=== PATIENT | female | born 1950 | race Caucasian/White ===

== ENCOUNTER → 2017-05-21 09:49 | Outpatient (CLI) | payer MEDICARE, MEDICAID, SELFPAY ==
[2017-05-21 10:33] VITALS: PULSE 52; PULSE 55
--- NOTE | 2017-05-21 10:57 | CT_ITS ---
EXAM: CT LUNG LOW DOSE WO CONTRAST COMPARISON: None HISTORY: 66 year old female with greater than 30 pack-year smoking history, asymptomatic ORDERING PHYSICIAN: Justin Rmairez MD PATIENT AGE: 66 years TECHNIQUE: The exam was performed on a GE Light Speed [address] scanner using 2.90 mGy CTDI. A low dose helical CT CHEST was performed on a multi-detector scanner. All CT scans at the facility use one or more dose reduction, viz: automated exposure control; ma/kV adjustment per patient size (including targeted exams where dose is matched to indication; i.e. head); or iterative reconstruction technique. The LDCT was performed in a facility that meets the criteria for the screening program. Data regarding this exam was submitted to ACR which is an approved registry. The order for this exam indicates that it came as a result of a lung cancer screening counseling shard decision-making visit that included all the elements required of such a visit including smoking cessation. The radiologist interpreting this exam meets the CMS criteria for the LDCT lung cancer screening program. The exam is reported using the Lung-RADS classification scale and reported to the ACR registry. NOTE: This study was performed for the specific purposes of lung cancer screening and is not an alternative to diagnostic chest CT. RADIATION DOSE: CTDI vol(CT dose Index-volume) = 2.90mG DLP (Dose Length Product) = 96.27 mGcm FINDINGS: Centrilobular and paraseptal emphysematous changes are present there is a 5 mm spiculated opacity within the central aspect of the right upper lobe. A 4 mm somewhat irregular opacity is present in each aspect of the right upper lobe. 5 mm opacity noted in the right upper lobe laterally. Calcified granulomas present in the right perihilar region. Atelectatic changes are present in the right middle lobe and right lower lobe left lung base posteriorly 4 mm irregular opacity is present in the left upper lobe anteriorly and a 4 mm irregular opacity in the left upper lobe centrally as well as a 3 mm opacity in the left upper lobe centrally There are coronary artery calcifications. Scattered small nodes are present in the axilla. There are degenerative changes in the thoracic spine. Fibrotic changes are present in the left apex IMPRESSION: 1. Lung RADS Category: 3, probably benign 2. Other findings: Emphysema with scattered areas of pulmonary fibrosis and atelectasis. Coronary artery disease RECOMMENDATIONS: 3 month LDCT follow-up. The nodules have a somewhat spiculated appearance therefore, three-month CT follow-up is recommended.
== END ==
PROVIDERS: PCP Family Medicine; Visit Provider Family Medicine
DX: Z12.2 Encounter for screening for malignant neoplasm of respiratory organs (principal); Z87.891 Personal history of nicotine dependence; J44.9 Chronic obstructive pulmonary disease, unspecified
CPT/HCPCS: 94060; 94640

== ENCOUNTER → 2017-10-13 11:56 | Outpatient (CLI) | payer MEDICARE, MEDICAID, SELFPAY ==
--- NOTE | 2017-10-13 12:10 | XR_ITS ---
EXAM: XR lumbar spine min 4V HISTORY: ITS.REASON: LT SIDED LOW BACK PAIN W/SCIATICA ORDERING PHYSICIAN: Debby Russo PATIENT AGE: 67 years COMPARISON: None FINDINGS: There is mild dextroscoliosis of lumbar spine. There is degenerative disc disease at T12-L1 and L1-L2. There is mild anterolisthesis of L4 on L5 of 3 mm. No acute fracture or dislocation. There are facet arthritic changes at L4-5 and L5-S1. No lytic or blastic change. IMPRESSION: Degenerative disc disease with mild facet arthritic change as described above
== END ==
PROVIDERS: PCP Nurse Practitioner Family; Visit Provider Nurse Practitioner Family
DX: M54.42 Lumbago with sciatica, left side (principal)
CPT/HCPCS: 72110

== ENCOUNTER → 2017-10-30 14:48 | Outpatient (CLI) | payer MEDICARE, MEDICAID, SELFPAY ==
--- NOTE | 2017-10-30 14:50 | CT_ITS ---
CT lumbar spine wo con INDICATION: Left-sided low back pain. Sciatica one month. No injury. ITS.REASON: ACUTE LT LOW BACK PAIN ORDERING PHYSICIAN: Debby Russo PATIENT AGE: 67 years COMPARISON: Previous CT abdomen and pelvis of the reconstructions from 07/26/2016 . There is also a plain film lumbar spine series from 10/13/2017 TECHNIQUE: Helical axial images obtained with sagittal and coronal reformats. All CT scans at the facility use one or more dose reduction, viz: automated exposure control, ma/kV adjustment per patient size (including targeted exams where dose is matched to indication, i.e. head), or iterative reconstruction technique. FINDINGS: Lumbar vertebral bodies are intact. No compression fracture or lesions evident on CT.. No acute findings Mild dextroscoliosis upper lumbar spine. L5/S1. Disc intact. Mild disc bulge most evident to the left. Prominent facet hypertrophy bilateral L4/5.. Mild disc space narrowing most evident rightward, and is associated with mild levoscoliosis.. Asymmetric disc bulge slightly more evident towards the left.. This indents thecal sac and yields mild encroachment upon the neural foramen bilaterally left more so than right.. Facet hypertrophy bilaterally most pronounced in the right. It bilateral facet arthropathy, hypertrophy. L3/4. Degenerative disc space narrowing most evident to the right. No Slight rightward shift of L3 vertebra relative to L4. Associated with the patient mild levoscoliosis. Diffuse generous disc bulge with additional disc bulge/protrusion towards the left foramen and continuing lateral. Mild bilateral foraminal encroachment. Moderate Facet hypertrophy. L2/3 mild disc space narrowing most evident to the left. Spondylosis with diffuse disc bulge most evident the left. Facet hypertrophy, arthropathy to the left L1/2 again there is mild disc space narrowing with mild diffuse disc bulge. Mild facet hypertrophy. T12/L1 and T11/12 disc intact. . Findings are very similar and show no significant change since June 2016 CT abdomen Bilateral punctate renal calculi. Right kidney: 4 mm nonobstructive calculus at upper pole. Small less than 3.5 mm calculus lower pole. Other tiny faint calculi. Left kidney most notable is the over 4 mm calculus lower pole left kidney. Other small calculus towards lower pole. Small less than 3 mm calculus at upper pole. IMPRESSION: 1. No acute findings in the lumbar spine. . No significant change since a June 2016 abdomen used as comparison 2. Moderate degenerative degenerative changes throughout the lumbar spine as detailed above.. . Mild levoscoliosis of L-spine with Multilevel degenerative disc & facet arthropathy . L4/5. & L3/4.-Asymmetric disc bulge most evident towards left foramen 3. Nephrolithiasis. Numerous punctate renal calculi bilaterally... No obstruction.
== END ==
PROVIDERS: PCP Nurse Practitioner Family; Visit Provider Nurse Practitioner Family
DX: M54.42 Lumbago with sciatica, left side (principal)
CPT/HCPCS: 72131

== ENCOUNTER → 2017-11-09 13:48 | Outpatient (CLI) | payer MEDICARE, MEDICAID, SELFPAY ==
[2017-11-09 15:23] LABS: Basophils # 0.1 K/mm3 (0-0.2); Basophils % 0.5 % (0.1-2.0); Eosinophils # 0.4 K/mm3 (0.0-0.4); Eosinophils % 3.4 % (0.1-12.0); Hematocrit 50.8 % (37.0-47.0); Hemoglobin 16.9 g/dL (12.2-16.2); Lymphocytes # 3.4 K/mm3 (0.7-4.5); Lymphocytes % 32.9 K/mm3 (10-50); Mean Corpuscular HGB Conc 33.2 g/dL (31.8-35.4); Mean Corpuscular Hemoglobin 31.6 pg (27.0-31.2); Mean Corpuscular Volume 95.3 fl (81-99); Mean Platelet Volume 7.3 fl (7.4-10.4); Monocytes # 0.6 K/mm3 (0.1-1.0); Monocytes % 5.8 % (1.7-9.3); Neutrophils # 5.9 K/mm3 (1.8-7.8); Neutrophils % 57.4 % (37.0-80.0); Platelet Count 309 K/mm3 (142-424); Red Blood Count 5.33 M/mm3 (4.20-5.40); Red Cell Distribution Width 13.6 % (11.5-17.5); White Blood Count 10.3 K/mm3 (4.8-10.8)
== END ==
PROVIDERS: PCP Family Medicine; Visit Provider Otolaryngology
DX: Z01.818 Encounter for other preprocedural examination (principal); J38.1 Polyp of vocal cord and larynx; R49.0 Dysphonia; F17.200 Nicotine dependence, unspecified, uncomplicated
CPT/HCPCS: 36415; 80053; 85025; 93005

== ENCOUNTER → 2017-11-10 14:15 | Outpatient (CLI) | payer MEDICARE, MEDICAID, SELFPAY ==
[2017-11-10 15:12] LABS: Alanine Aminotransferase 40 U/L (12-78); Albumin Level 3.7 gm/dL (3.4-5.0); Alkaline Phosphatase 110 U/L (46-116); Aspartate Amino Transferase 15 U/L (15-37); Bilirubin,Total 0.4 mg/dL (0.2-1.0); Blood Urea Nitrogen 21 mg/dL (7-18); Calcium 8.7 mg/dL (8.5-10.1); Carbon Dioxide 25 mmol/L (21.0-32.0); Chloride 106 mmol/L (98-107); Creatinine,Serum 1.44 mg/dL (0.55-1.02); Estimated Glomerular Filt Rate 36 ml/min (>60); GFR (African American) 44 ML/MIN (>60); Globulin 3.6 gm/dl (1.3-3.2); Glucose 83 mg/dL (74-106); Sodium 141 mmol/L (136-145); Total Protein,Serum 7.3 gm/dL (6.4-8.2)
== END ==
PROVIDERS: PCP Family Medicine; Visit Provider Otolaryngology
DX: Z01.818 Encounter for other preprocedural examination (principal); R49.0 Dysphonia
CPT/HCPCS: 36415; 80053

== ENCOUNTER → 2018-06-24 11:33 | Outpatient (CLI) | payer MEDICARE, MEDICAID, SELFPAY ==
--- NOTE | 2018-06-24 11:40 | XR_ITS ---
XR ankle RT min 3V HISTORY: ITS.REASON: RT ANKLE PAIN ORDERING PHYSICIAN: Justin Ramirez MD PATIENT AGE: 68 years Comparison: None FINDINGS: No fracture or dislocation. No lytic or blastic change. There is normal mineralization.. The joint spaces are well-preserved. No significant degenerative/arthritic changes. No erosive changes evident. IMPRESSION: Negative ankle, no acute finding
== END ==
PROVIDERS: PCP Family Medicine; Visit Provider Family Medicine
DX: M25.571 Pain in right ankle and joints of right foot (principal)
CPT/HCPCS: 73610

== ENCOUNTER → 2018-07-08 14:58 | Outpatient (CLI) | payer MEDICARE, MEDICAID, SELFPAY ==
--- NOTE | 2018-07-08 15:00 | US_ITS ---
US Kidney CLINICAL INDICATION: Chronic renal disease ITS.REASON: CKD 3 ORDERING PHYSICIAN: Justin Ramirez MD PATIENT AGE: 68 years Comparison: None FINDINGS: The right kidney is 10 x 4 x 6 cm. No hydronephrosis. There is mild cortical thinning. Left kidney is 10 5 x 5 cm. No hydronephrosis. Mild cortical thinning. IMPRESSION: Mild bilateral renal cortical thinning otherwise negative renal ultrasound
== END ==
PROVIDERS: PCP Family Medicine; Visit Provider Family Medicine
DX: N18.3 Chronic kidney disease, stage 3 (moderate) (principal)
CPT/HCPCS: 76770

== ENCOUNTER 2018-10-13 14:00 | Outpatient (RCR) | payer MEDICARE, MEDICAID, SELFPAY ==
--- NOTE | 2018-09-22 14:15 | HMH.PTOPEV ---
PT Outpatient Evaluation Rehab PT Outpatient Evaluation Start: 09/22/18 13:34 Freq: Status: Active Protocol: Document 09/22/18 13:35 LANG (Rec: 09/22/18 14:15 LANG [id number]) Electronically Signed By Jasson Dixon, PT 09/22/18 13:35 Outpatient Therapy Subjective History Subjective History Pt reports h/o chronic LBP with this most recent exacerbation beginning ~8 weeks ago. Pt reports L sided LBP, as well as midline sacral pain. Pt also reports intermittent L LE radicular s/ s down to lateral knee area. PMH: colon cx, skin cx. , HTN Chief Complaint Pain,Stiff,Paresthesia, Weakness Symptom Type Ache,Sharp,Dull,Numbness, Tingling Symptoms Relieved By Rest/Positioning,Heat Symptoms Aggravated By Standing,Bending/Stooping, Physical Activity,Walking, Lifting Prior Functional Limitations Lifting,Housework,Sitting Current Functional Limitations Lifting,Housework,Standing, Sitting,Walking,Bending/ Stooping Symptom Description Constant but Variable Level of pain today (0-10) 6 Pain scale - at its best (0-10) 5 Pain scale - at its worst (0-10) 8 Lumbopelvic Eval Posture Thoracic Spine Posture Standing Position Flattened Lumbar Spine Posture Standing Position Flattened Assistive device Assistive Devices None / NA Gait Observation General Gait Pattern Observation Antalgic Gait Palapation tenderness right lumbar spinal tenderness Yes: 3/4 paraspinal tenderness Yes: 2/4 buttock tenderness Yes: 2/4 Lumbar/Sacral Palpation Findings Tenderness,Muscle Guarding left lumbar spinal tenderness Yes: 3/4 paraspinal tenderness Yes: 3/4 buttock tenderness Yes: 3/4 Lumbar/Sacral Palpation Findings Tenderness,Muscle Guarding Accessory Movement L-spine Vertebrae Accessory Movements Central P/A [place] that Elicit Symptoms L2 bilateral L3 bilateral L4 bilateral L5 bilateral S1 bilateral Range of Motion Lumbar Spine Active Flexion Range of 0-40 Motion (degrees) Lumbar Spine Active Extension Range of 0-15 Motion (degrees) Left Lumbar Spine Lateral Flexion Active 0-20 Range of Motion (degrees) Right Lumbar Spine Lateral Flexion 0-20 Active Range
== END 2018-10-13 14:05 | disposition home or self-care (01) ==
LOC: PT 14:00
PROVIDERS: Visit Provider Family Medicine
DX: M54.5 Low back pain (principal); M46.1 Sacroiliitis, not elsewhere classified
CPT/HCPCS: 97010; 97014; 97035; 97110; 97163; G0283

== ENCOUNTER → 2019-02-04 09:44 | Outpatient (CLI) | payer MEDICARE, MEDICAID, SELFPAY ==
--- NOTE | 2019-02-04 09:45 | FL_ITS ---
PROCEDURE: FL BARIUM SWALLOW CLINICAL INDICATION: aspiration pneumonia COMPARISON: No exams were available for comparison TECHNIQUE: In the upright position the patient was observed to swallow barium in both the AP and lateral view. The cervical esophagus was examined under fluoroscopy with images obtained. The patient was then placed prone in the right anterior oblique position and was observed to swallow barium with Valsalva technique . FLUOROSCOPY TIME: 2 minutes 1 second FINDINGS: The swallowing function was normal. There are few minor tertiary contractions of the lower half of the esophagus. Spot films of the cervical esophagus while swallowing show no abnormal posterior or anterior indentation. There is mild stasis of barium in the valleculae and piriform sinuses only partially cleared with additional dry swallows. There is a small sliding hiatal hernia but there is no significant gastroesophageal reflux with the patient in supine position. IMPRESSION: Small sliding hiatal hernia, mild to moderate stasis the likely inferior form sinuses, no other significant abnormality noted Dictated by: Dr. Lacho Vidales MD 02/04/2019 11:[address] Lacho Vidales MD in [place] 02/04/2019 11:24
== END ==
PROVIDERS: PCP Family Medicine; Visit Provider Otolaryngology
DX: R13.10 Dysphagia, unspecified (principal)
CPT/HCPCS: 74220

== ENCOUNTER → 2019-05-12 16:00 | Outpatient (CLI) | payer MEDICARE, MEDICAID, SELFPAY ==
[2019-05-12 18:37] LABS: Thyroid Stimulating Hormone 1.78 uIU/mL (0.465-4.68)
[2019-05-12 19:23] LABS: Free T4 (Free Thyroxine) 1.38 ng/dl (0.78-2.19)
== END ==
PROVIDERS: Visit Provider Otolaryngology
DX: R13.10 Dysphagia, unspecified (principal)
CPT/HCPCS: 36415; 84439; 84443

== ENCOUNTER → 2019-07-13 14:49 | Outpatient (POV) | payer MEDICARE, MEDICAID, SELFPAY | PROVIDERS: PCP Family Medicine | DX: Z00.00 Encounter for general adult medical examination without abnormal findings (principal) ==

== ENCOUNTER → 2020-11-12 13:57 | Outpatient (CLI) | payer MEDICARE, MEDICAID, SELFPAY ==
--- NOTE | 2020-11-12 14:19 | XR_ITS ---
PROCEDURE: XR HUMERUS RT CLINICAL INDICATION: PAIN IN RT UPPER ARM COMPARISON: No exams were available for comparison FINDINGS: No fracture or dislocation. No lytic or blastic change. There is normal mineralization. There are minimal osteoarthritic changes at the glenohumeral joint. Other findings:None. IMPRESSION: Minimal osteoarthritic change glenohumeral joint otherwise negative Dictated by: Jarvis Dimas MD 11/12/2020 15:27 Jarvis Dimas MD in [place] 11/12/2020 15:27
[2020-11-12 14:20] LABS: Adenovirus F 40/41, stool Not Detected (NotDetected); Astrovirus Not Detected (NotDetected); Campylobacter Not Detected (NotDetected); Clostridium Difficile A/B, PCR Not Detected (NotDetected); Cryptosporidium Not Detected (NotDetected); Cyclospora Cayetanesis Not Detected (NotDetected); Entamoeba histolytica Not Detected (NotDetected); Enteroaggregative E coli Not Detected (NotDetected); Enteropathogenic E coli Not Detected (NotDetected); Enterotoxigenic E coli Not Detected (NotDetected); Giardia lamblia Not Detected (NotDetected); Norovirus Not Detected (NotDetected); Plesimonas Shigalloides, PCR Not Detected (NotDetected); Rotavirus A Not Detected (NotDetected); Salmonella, PCR Not Detected (NotDetected); Sapovirus Not Detected (NotDetected); Shiga-like toxin E coli Not Detected (NotDetected); Shigella Enterovasive E coli Not Detected (NotDetected); Vibrio Cholerae Not Detected (NotDetected); Vibrio, PCR Not Detected (NotDetected); Yersinia Entercolitica, PCR Not Detected (NotDetected)
== END ==
PROVIDERS: PCP Family Medicine; Visit Provider Nurse Practitioner Family
DX: M79.621 Pain in right upper arm (principal); R19.7 Diarrhea, unspecified
CPT/HCPCS: 73060; 87045; 87506

== ENCOUNTER → 2020-12-03 14:50 | Outpatient (CLI) | payer MEDICARE, MEDICAID, SELFPAY | PROVIDERS: Visit Provider Surgery | DX: Z01.812 Encounter for preprocedural laboratory examination (principal); Z20.822 Contact with and (suspected) exposure to COVID-19; Z12.11 Encounter for screening for malignant neoplasm of colon | CPT/HCPCS: C9803; U0003; U0005 ==

== ENCOUNTER 2020-12-05 07:34 | Day surgery (SDC) | payer MEDICARE, MEDICAID, SELFPAY ==
[2020-12-03 11:35] VITALS: BMI 26.5
[2020-12-05 07:45] VITALS: BP 114/44; PULSE 109; RESP 18; TEMP 36.3; O2SAT 94
--- NOTE | 2020-12-05 08:12 | HMH.ANESCL ---
[facility] Anesthesia Checklist - Structural Data Admitted From: Home Planned Operative Procedure/s: colonoscopy Consent for Planned Operative Procedure(s) Verified: Yes - Additional verifications Anesthesia Reactions: No Hx Blood Transfusions: No Blood Transfusion Reaction: No - Airway Assessment C-Spine Mobility Assessed: Yes TMJ Mobility Assessed: Yes Dentition: Edentulous - Neurological Assessment Level of Consciousness: Awake, Alert, Appropriate - Anesthesia Plan Anesthesia Risk discussed: Yes Anesthesia Plan: Verified ASA Class: III Anesthesia Type: MAC [facility] History I have reviewed the patient's past medical history: Yes Medical History: Reports:: Cancer (COLON, RT HAND, CERVICAL), Chronic Obstructive Pulmonary Disease (COPD), Cerebrovascular Accident, Gastroesophageal Reflux Disease(GERD), Hypertension Denies:: Diabetes Mellitus Type 1, Diabetes Mellitus Type 2, Internal Pacemaker, MRSA, Seizures *Have you ever received a pneumonia vaccine?: Yes *Have you received a flu vaccine this season?: Yes Other Medical History: Reports: Hypothyroidism. Denies: Blood Transfusion Reaction Anesthesia experience/problems:: none Other Surgeries: Yes: Appendectomy, Colonoscopy, Diagnostic Lap, Hernia Repair, Thyroidectomy, Tubal Ligation, Other. No: Pacemaker Amputation: No Fractures: No - *Social History Last grade of school completed: High school graduate Smoking Status: Current every day smoker Tobacco Type: cigarettes # Packs/Day (cigarettes): 1 Alcohol Intake: never Alcohol Intake Frequency:: other Substance Use Type: other *Occupational Status:: retired Housing: house Household Members: family *Travel in the last 8 weeks: None Family Hx:: Asthma, Cancer, Heart Attack
[2020-12-05 08:13] VITALS: O2SAT 97
[2020-12-05 09:08] VITALS: BP 109/61; PULSE 92; RESP 15; TEMP 36.4; O2SAT 94
--- NOTE | 2020-12-05 09:08 | P.PCN_ITS ---
- Procedure: Date: 12/05/20 Patient Date of :: 1950 Procedure Performed:: Total colonoscopy with biopsies and polypectomy Indications:: Patient is a 70-year-old female referred for screening colonoscopy. She has an apparent previous history of colon cancer and underwent right hemicolectomy [id number] many years ago. She had undergone colonoscopies by Dr. Alejandro Dinero in the past and had polyps removed. She had stated that she had as many as 17 polyps removed during colonoscopies. Her last colonoscopy was performed by Dr. Basilio on 12/08/2016. At that time she had 7 polyps removed. Largest of which was in the sigmoid colon measuring about 17 mm as a ridge polyp behind a haustral fold. This polyp had a rather wide base. It was removed in a piecemeal fashion. The area was injected with Viki ink. It is unclear as to the pathology at this time. It appears as though Dr. Basilio had recommended genetic testing, annual surveillance colonoscopy, and family screening of colon cancer. Patient describes recent diarrhea. She states that work-up including blood work and stool testing has been negative. Performing Provider:: David Spangler MD Referring Provider:: Justin Ramirez MD Sedation:: MAC sedation Procedure:: Patient was taken to endoscopy procedure room. She was positioned lateral decubitus position. Adequate anesthesia was achieved. Digital examination was performed which was unremarkable. Variable stiffness Olympus colonoscope was inserted via the anus. It was advanced to the ileocolic anastomosis. Biopsies were obtained of this region. Due to her diarrhea several random colon biopsies were obtained. In the sigmoid colon at approximately 50 cm from the anus there was somewhat of a raised ulcerated lesion with surrounding Viki ink marking. This appeared to be somewhat of a stellate scar type lesion from previous polypectomy. It is unclear if there was definite recurrence of the polyp. Atte mpt was made at injection of methylene blue to remove the entire area with snare. However this was unsuccessful. Multiple biopsies were obtained of the potentially adenomatous appearing tissue. Hemoclip was deployed for hemostasis. Additional Viki ink was injected to jessi the area. Immediately proximal to this there was a small adenomatous appearing polyp which was removed with cold snare. Colonoscope was withdrawn through the remainder of the colon. There was sigmoid polyp removed with cold snare which was tiny and diminutive. Rectosigmoid there were a couple of hyperplastic appearing polyps removed with cold biopsy forceps. In the distal rectum there was a small polyp removed with cold snare. Colonoscope was withdrawn. Findings:: Polyps as noted above Sigmoid lesion was 50 cm from the anus, possibly recurrent polyp, multiple biopsies obtained in Viki ink injected. Hemoclip deployed. Rectosigmoid likely hyperplastic polyps Rectal polyp Recommendations:: Follow-up on pathology. If there is adenomatous component to the biopsies of the lesion in the sigmoid may require early repeat colonoscopy versus referral for possible endoscopic submucosal resection versus ablation. Complications:: None immediately apparent Estimated blood obtained (mL): 3
[2020-12-05 09:18] VITALS: BP 109/72; PULSE 96; RESP 16; O2SAT 93
[2020-12-05 09:28] VITALS: BP 127/74; PULSE 96; RESP 16; O2SAT 93
[2020-12-05 09:38] VITALS: BP 110/64; PULSE 86; RESP 16; O2SAT 94
== END 2020-12-05 09:38 | disposition home or self-care (01) ==
LOC: OUTP 07:36
PROVIDERS: PCP Family Medicine; Visit Provider Surgery
PROC: 0DJD8ZZ Inspection of Lower Intestinal Tract, Via Natural or Artificial Opening Endoscopic (ICD-10-PCS; principal; 2020-12-05 08:30)
DX: Z12.11 Encounter for screening for malignant neoplasm of colon (principal); K62.1 Rectal polyp; K63.5 Polyp of colon; K63.9 Disease of intestine, unspecified; Z86.010 Personal history of colon polyps
CPT/HCPCS: 45381; 45385; 88305

== ENCOUNTER → 2021-02-07 09:54 | Outpatient (CLI) | payer MEDICARE, MEDICAID, SELFPAY | PROVIDERS: PCP Family Medicine; Visit Provider Nurse Practitioner Family | DX: F17.200 Nicotine dependence, unspecified, uncomplicated (principal); I34.0 Nonrheumatic mitral (valve) insufficiency; I42.9 Cardiomyopathy, unspecified; I49.3 Ventricular premature depolarization; J44.9 Chronic obstructive pulmonary disease, unspecified; R06.00 Dyspnea, unspecified; R94.31 Abnormal electrocardiogram [ECG] [EKG]; Z86.73 Personal history of transient ischemic attack (TIA), and cerebral infarction without residual deficits | CPT/HCPCS: 93270 ==

== ENCOUNTER → 2021-02-26 11:51 | Outpatient (CLI) | payer MEDICARE, MEDICAID, SELFPAY ==
[2021-02-26 12:42] LABS: Basophils # 0.2 K/mm3 (0-0.2); Basophils % 1.5 % (0.1-2.0); Eosinophils # 0.3 K/mm3 (0.0-0.4); Eosinophils % 2.5 % (0.1-12.0); Hematocrit 49.4 % (37.0-47.0); Hemoglobin 15.8 g/dL (12.2-16.2); Lymphocytes # 3.7 K/mm3 (0.7-4.5); Lymphocytes % 34.9 % (10-50); Mean Corpuscular Hemoglobin 32.4 pg (27.0-31.2); Mean Corpuscular Volume 101.1 fl (81-99); Mean Platelet Volume 8.8 fl (7.4-10.4); Monocytes # 0.7 K/mm3 (0.1-1.0); Monocytes % 6.6 % (1.7-9.3); Neutrophils # 5.8 K/mm3 (1.8-7.8); Neutrophils % 54.4 % (37.0-80.0); Platelet Count 357 K/mm3 (142-424); Red Blood Count 4.88 M/mm3 (4.20-5.40); Red Cell Distribution Width 13.2 % (11.5-17.5); White Blood Count 10.7 K/mm3 (4.8-10.8)
[2021-02-26 13:42] LABS: Chloride 106 mmol/L (98-107); Potassium 4.9 mmoL/L (3.5-5.1); Sodium 139 mmol/L (136-145)
[2021-02-26 13:45] LABS: Anion Gap 11.9 mEq/L (5-15); Blood Urea Nitrogen 12 mg/dl (7-17); Calcium 9.1 mg/dl (8.4-10.2); Carbon Dioxide 26 mmol/L (22.0-30.0); Estimated Glomerular Filt Rate 62 ml/min (>60); GFR (African American) 75 ML/MIN (>60); Glucose 99 mg/dl (74-100)
== END ==
PROVIDERS: Visit Provider Urology
DX: F17.200 Nicotine dependence, unspecified, uncomplicated (principal); I34.0 Nonrheumatic mitral (valve) insufficiency; I49.3 Ventricular premature depolarization; I50.30 Unspecified diastolic (congestive) heart failure; J44.9 Chronic obstructive pulmonary disease, unspecified; R00.0 Tachycardia, unspecified; R00.2 Palpitations; R06.00 Dyspnea, unspecified; R07.9 Chest pain, unspecified; R94.31 Abnormal electrocardiogram [ECG] [EKG]; Z86.73 Personal history of transient ischemic attack (TIA), and cerebral infarction without residual deficits; Z01.812 Encounter for preprocedural laboratory examination; Z11.52 Encounter for screening for COVID-19; I42.9 Cardiomyopathy, unspecified
CPT/HCPCS: 36415; 80048; 85025; C9803; U0003; U0005

== ENCOUNTER 2021-02-27 08:26 | Day surgery (SDC) | payer MEDICARE, MEDICAID, SELFPAY ==
[2021-02-27] VITALS (20 sets, daily range): BP systolic 105–132; BP diastolic 57–85; PULSE 89–113; RESP 13–22; O2SAT 92–98; BMI 25.6
--- NOTE | 2021-02-27 | IR_ITS ---
APPROVED REPORT Patient Location: [facility] Manager: ZO Sherwood RT (R) PROCEDURES Left heart catheterization Left ventriculogram Selective coronary angiogram INDICATION Cardiomyopathy, Abnormal functional study Informed consent was obtained prior to the procedure. COMPLICATIONS None Estimated Blood Loss: Less than 10 mls TECHNIQUE One percent lidocaine was used to anesthetize the right groin. The right femoral artery was accessed via the Seldinger technique. A 4-Armenian sheath was placed in the right femoral artery. The JL-4 and JR-4 catheter was also used to perform left heart catheterization left ventriculogram and selective coronary angiogram. At the end of the procedure the patient was transferred to the post-op holding area in stable condition for arterial sheath removal. ANGIOGRAPHIC RESULTS The left main artery Normal The left anterior descending artery Has proximal and mid vessel calcified 10 to 20% nonflow limiting stenoses The circumflex artery Is a dominant vessel and has diffuse 10 to 20% luminal irregularities The right coronary artery Nondominant normal The BRALOW ventriculogram reveals Dilated ventricle with reduced ejection fraction visually estimated at 20 to 25% The left ventricular end-diastolic pressure 20 to 25 mmHg IMPRESSION Nonflow limiting mild coronary artery disease as described above Nonischemic cardiomyopathy Severely reduced ejection fraction with mildly elevated LVEDP PLAN 1. Standard therapy for systolic heart failure 2. There is a disparity between the echocardiogram and the LV gram. I would recommend a MUGA scan to better quantitate ejection fraction. The ejection fraction appears less than 40% as described by echo 3. Consider LifeVest if MUGA scan proves to have an ejection fraction 35% or less Electronically signed by : Noel Rodriguez MD 02/27/2021 14:46:39
== END 2021-02-27 14:55 | disposition home or self-care (01) ==
LOC: CATHLAB 08:29
PROVIDERS: PCP Family Medicine; Visit Provider Internal Medicine
DX: I47.2 Ventricular tachycardia (principal); I42.9 Cardiomyopathy, unspecified; R94.30 Abnormal result of cardiovascular function study, unspecified; I50.32 Chronic diastolic (congestive) heart failure; E03.9 Hypothyroidism, unspecified; I34.0 Nonrheumatic mitral (valve) insufficiency; F17.210 Nicotine dependence, cigarettes, uncomplicated; J44.9 Chronic obstructive pulmonary disease, unspecified; Z99.81 Dependence on supplemental oxygen; I50.20 Unspecified systolic (congestive) heart failure; I25.10 Atherosclerotic heart disease of native coronary artery without angina pectoris
CPT/HCPCS: 93458; 99152; C1725; C1769; J1644; Q9967

== ENCOUNTER → 2021-03-06 13:15 | Outpatient (CLI) | payer MEDICARE, MEDICAID, SELFPAY ==
--- NOTE | 2021-03-06 13:16 | NM_ITS ---
APPROVED REPORT [facility] Technologist: ZO Sharma RT (R)(N)(M) Indication Abnormal ECG CVA/TIA Dyspnea Cardiomyopathy Mitral Valve Disease Palpitations v-tach Cardiac Risk Factors Hypertension: Height: 5'2 , Weight: 142 Diabetes Smokin/2 Pack/Day, 40 Yrs, Procedure The above named patient was injected with 23.9 mCi of Tc99m tagged red blood cells. The above named patient was injected with mg of cold stannous pyrophosphate. After 20.0 min, the patient was injected with 23.9 mCi of Technecium-99m pertechnetate. Impression Abnormal MUGA study. Calculated left ventricular ejection fraction is 29 %. Severely decreased. left ventricular systolic function. Abnormal global hypokinesis wall motion. 1.Abnormal MUGA scan with EF29%,Left Ventrical global HK Conclusion 1.Abnormal MUGA scan with EF29%,Left Ventrical global HK Electronically signed by : Uriel Powers MD 03/06/2021 18:51:49
== END ==
PROVIDERS: PCP Family Medicine; Visit Provider Nurse Practitioner Family
DX: F17.200 Nicotine dependence, unspecified, uncomplicated (principal); I34.0 Nonrheumatic mitral (valve) insufficiency; I42.9 Cardiomyopathy, unspecified; I47.2 Ventricular tachycardia; I49.3 Ventricular premature depolarization; J44.9 Chronic obstructive pulmonary disease, unspecified; R00.2 Palpitations; R06.00 Dyspnea, unspecified; R07.89 Other chest pain; R94.31 Abnormal electrocardiogram [ECG] [EKG]; Z86.73 Personal history of transient ischemic attack (TIA), and cerebral infarction without residual deficits
CPT/HCPCS: 78473; A9512; A9540; A9560

== ENCOUNTER → 2021-03-15 08:35 | Outpatient (CLI) | payer MEDICARE, MEDICAID, SELFPAY ==
[2021-03-15 09:06] LABS: Basophils # 0.1 K/mm3 (0-0.2); Basophils % 0.8 % (0.1-2.0); Eosinophils # 0.3 K/mm3 (0.0-0.4); Hematocrit 50.6 % (37.0-47.0); Hemoglobin 16.4 g/dL (12.2-16.2); Lymphocytes # 2.8 K/mm3 (0.7-4.5); Lymphocytes % 28.2 % (10-50); Mean Corpuscular HGB Conc 32.4 g/dL (31.8-35.4); Mean Corpuscular Hemoglobin 32.6 pg (27.0-31.2); Mean Corpuscular Volume 100.7 fl (81-99); Mean Platelet Volume 8.1 fl (7.4-10.4); Monocytes # 0.7 K/mm3 (0.1-1.0); Monocytes % 6.7 % (1.7-9.3); Neutrophils # 6.1 K/mm3 (1.8-7.8); Neutrophils % 61.3 % (37.0-80.0); Platelet Count 364 K/mm3 (142-424); Red Blood Count 5.02 M/mm3 (4.20-5.40); Red Cell Distribution Width 13.5 % (11.5-17.5)
[2021-03-15 12:05] LABS: Anion Gap 12.8 mEq/L (5-15); Blood Urea Nitrogen 13 mg/dl (7-17); Carbon Dioxide 28 mmol/L (22.0-30.0); Chloride 102 mmol/L (98-107); Estimated Glomerular Filt Rate 55 ml/min (>60); GFR (African American) 67 ML/MIN (>60); Glucose 110 mg/dl (74-100); Potassium 4.8 mmoL/L (3.5-5.1); Sodium 138 mmol/L (136-145)
== END ==
PROVIDERS: Internal Medicine; PCP Family Medicine; Visit Provider Nurse Practitioner Family
DX: Z01.812 Encounter for preprocedural laboratory examination; Z11.52 Encounter for screening for COVID-19; I11.0 Hypertensive heart disease with heart failure; I50.20 Unspecified systolic (congestive) heart failure
CPT/HCPCS: 36415; 80048; 85025; C9803; U0003; U0005

== ENCOUNTER → 2021-03-20 14:51 | Outpatient (CLI) | payer MEDICARE, MEDICAID, SELFPAY ==
--- NOTE | 2021-03-20 14:56 | US_ITS ---
FINAL REPORT CLINICAL HISTORY: BLADDER DISTENSION-- urinary bladder FINDINGS: Sonographic images of the bladder were obtained. The bladder volume is 358 mm. No post void residual is identified. There is a small to moderate amount of ascites. IMPRESSION: No post void residual. Small to moderate ascites. Reviewed, Interpreted and Dictated by David Amador III, MD Transcribed by Karla King Authenticated by David Amador III, MD on 03/20/2021 04:28:16 PM [facility]
== END ==
PROVIDERS: PCP Family Medicine; Visit Provider Family Medicine
DX: N32.89 Other specified disorders of bladder (principal)
CPT/HCPCS: 76857

== ENCOUNTER 2021-04-10 09:19 | Day surgery (SDC) | payer MEDICARE, MEDICAID, SELFPAY ==
[2021-04-10] VITALS (10 sets, daily range): BP systolic 102–126; BP diastolic 48–95; PULSE 78–97; RESP 16–19; O2SAT 90–97; BMI 26.3
--- NOTE | 2021-04-10 | IR_ITS ---
APPROVED REPORT Patient Location: Outpatient Synchronizer: ZO Draper RT (R) PROCEDURES 1. Pocket formation for AICD. 2. Placement of atrial sensing and pacing coil into the right atrial appendage. 3. Placement of a ventricular sensing, pacing and shocking coil in the right ventricular apex. 4. Permanent AICD placement. INDICATION Systolic Congestive Heart Failure, ejection < 35%, [place] Heart Assoication Class 3 Congestive Heart Failure Informed consent was obtained prior to the procedure. COMPLICATIONS None Estimated Blood Loss: Less than 10 ML TECHNIQUE 1% Lidocaine with epinephrine used to anesthetized the left anterior aspect of the chest. Scalpel was used to make the initial cutaneous incision while electrocautery was used to dissect down tinto the fascia. The fascia was lifted off the pectoralis muscle and digitally manipulated creating a pocket for the defibrillator. The patient was then placed in Trendelenburg position and the subclavian vein was accessed 2 times via the Selinger technique. A 8 Hungarian sheath was placed under fluoroscopic guidance into the subclavian vein. The dilator was removed from the sheath. Using fluoroscopic guidance, the ventricular lead was placed into the right ventricular apex, screwed and secured into place. Electronic interrogation proved acceptable thresholds and voltage within the lead. Using 3-0 silk, the ventricular lead was then secured into place and sheath peeled away. A 6 Hungarian fresh sheath and dilator was placed over the existing wire. Using fluoroscopic guidance, the atrial lead was then placed into the right atrial appendage and screwed and secured in place. Electrical interrogation demonstrated acceptable thresholds and voltage number. The atrial lead was then secured into place using 3-0 silk and sheath peeled away. 1 gram of Ancef was used to flush the pocket. Both leads were connected to generator and tested via computer. The defibrillator then secured to the fascia. Monocryl was used to close the subcutaneous layers while charissa were used to close the cutaneous layer. A pressure dressing was placed and the patient was transferred to the postop holding area in stable condition for postoperative care. INTERROGATION Generator Model number: D413 Generator Serial number: [id number] Atrial lead model number: 7840 Atrial lead serial number: [id number] P-wave: 2.0 mV Impedence: 658 ohms Threshold: 1.5 v @ 0.4 ms Right Ventricular lead model number: 0675 Right Ventricular lead serial number: [id number] R-wave: 12.0 mv Impedence: 650 ohms Threshold: 0.7V @ 0.4ms Pacing Parameters: Mode: DDD Base/Max Track: 60/130 ICD Rate Cutoffs: VT-1: 170 BPM, 5 SEC ATP, 41J X 6 VT-2: 150 BPM, 10 SEC, MONITOR ONLY VF: 200 BPM, 2.5 SEC, QUICK COBERT, 41J X 8 No diaphragmatic stimulation at 10 volts. IMPRESSION 1. Successful pocket formation for AICD. 2. Successful placement of atrial sensing and pacing coil into the right atrial appendage. 3. Successful placement of a ventricular sensing, pacing and shocking coil in the right ventricular apex. 4. Successful permanent AICD placement. PLAN 1. Post Op Wound Care. Electronically signed by : Noel Rodriguez MD 04/10/2021 15:49:00
--- NOTE | 2021-04-10 14:06 | XR_ITS ---
FINAL REPORT CLINICAL HISTORY: post aicd COMPARISON: December 11, 2016 FINDINGS: There is a left subclavian ICD. The heart size is normal. The mediastinum is normal. There is mild bibasilar atelectasis. There are no pleural effusions. There is no pneumothorax. There is no osseous abnormality. IMPRESSION: Left subclavian ICD without pneumothorax. Mild bibasilar atelectasis. Reviewed, Interpreted and Dictated by David Amador III, MD Transcribed by Misha Reed Authenticated by David Amador III, MD on 04/10/2021 03:23:06 PM [facility]
--- NOTE | 2021-04-11 08:22 | P.PN_ITS ---
[facility] Anesthesia Checklist - Patient Identification Patient Identification: Arm Band, Verbal (Name & ) - Structural Data Admitted From: Home Planned Operative Procedure/s: AICD Placement Consent for Planned Operative Procedure(s) Verified: Yes Verified Documents: Surgical Consent - NPO Status Verified Time NPO: 00:00 - Chart Verification Results Verified: None - Additional verifications Anesthesia Reactions: No Hx Blood Transfusions: No Blood Transfusion Reaction: No - Airway Assessment C-Spine Mobility Assessed: Yes Dentition: Good Dentition - Neurological Assessment Level of Consciousness: Awake, Alert, Appropriate - Anesthesia Plan ASA Class: III Anesthesia Type: [facility] History Medical History: Reports:: Cancer, Chronic Obstructive Pulmonary Disease (COPD), Cerebrovascular Accident, Gastroesophageal Reflux Disease(GERD), Home Oxygen, Hypertension Denies:: Diabetes Mellitus Type 1, Diabetes Mellitus Type 2, Internal Pacemaker, MRSA, Seizures *Have you ever received a pneumonia vaccine?: Yes *Have you received a flu vaccine this season?: Yes Other Medical History: Reports: Hypothyroidism. Denies: Blood Transfusion Reaction Anesthesia experience/problems:: none Other Surgeries: Yes: Appendectomy, Cancer Surgery, Cardiac Catheterization, Cholecystectomy, Colonoscopy, Colon Resection, Diagnostic Lap, Hernia Repair, Thyroidectomy, Tubal Ligation, Other. No: Pacemaker Amputation: No Fractures: No - *Social History Smoking Status: Current every day smoker Tobacco Type: cigarettes # Packs/Day (cigarettes): 1 Alcohol Intake: never Alcohol Intake Frequency:: other Substance Use Type: other *Occupational Status:: disabled Housing: house Household Members: family *Travel in the last 8 weeks: None Family Hx:: Asthma, Cancer, Heart Attack
== END 2021-04-10 16:17 | disposition home or self-care (01) ==
LOC: CATHLAB 09:23
PROVIDERS: PCP Family Medicine; Visit Provider Internal Medicine
PROC: 0JH608Z Insertion of Defibrillator Generator into Chest Subcutaneous Tissue and Fascia, Open Approach (ICD-10-PCS; CPT 33249; principal; 2021-04-10 11:15)
DX: I50.42 Chronic combined systolic (congestive) and diastolic (congestive) heart failure; I11.0 Hypertensive heart disease with heart failure; I47.2 Ventricular tachycardia; I47.0 Re-entry ventricular arrhythmia; I34.0 Nonrheumatic mitral (valve) insufficiency; J44.9 Chronic obstructive pulmonary disease, unspecified; Z99.81 Dependence on supplemental oxygen; Z79.899 Other long term (current) drug therapy; Z88.8 Allergy status to other drugs, medicaments and biological substances
CPT/HCPCS: 33249; 71045; C1721; C1895; C1898

== ENCOUNTER → 2021-08-12 12:53 | Outpatient (CLI) | payer MEDICARE, MEDICAID, SELFPAY ==
--- NOTE | 2021-08-12 12:58 | CA_ITS ---
APPROVED REPORT EXAM: Comprehensive 2D, Doppler, and color-flow Echocardiogram Re Recording Mixer: SUSAN Trinidad, RVS Ht: 5 ft 2 in Wt: 154lbs BSA: 1.71 BP: 115/69 mmHg Indications: SOA, MITRAL REGURGITATION, COPD, SMOKER, CAD, DD, CVA, DILATED CM-EF40%-03/22 PER [facility] 2D Dimensions IVSd 1.17 cm LVEF (Visual) 38.20 % PWd 1.13 cm LA Volume 61.40 mL LVDd 5.91 cm LA Volume Index 35.399117 mL/m2 (M/F) 16-34 LVDs 4.80 cm Aortic Root 2.54 cm Left Atrium 3.21 cm LVOT 1.99 cm (M/F) 1.5-2.5 M-Mode Dimensions RVDd 1.56 cm (0.9-2.6) LA Diam 3.17 cm (1.9-4.0) LVDd 6.54 cm (3.5-5.7) Ao Diam 3.00 cm (2.0-3.7) LVDs 5.12 cm (3.5-5.7) IVSd 1.16 cm (0.6-1.1) PWd 1.11 cm (0.6-1.1) EF (Teich) 43.00% EPSs 2.31 cm FS 21.70% EDV (Teich) 219.00 mL TAPSE 1.37 (<1.7) ESV (Teich) 124.90 mL LV Diastology E Decel Time 160.00 (160-240 msec) E/A Ratio 0.62 MED E' 4.60 (< 7 cm/sec) MED A' 10.40 cm/s E'/MED E' Ratio 12.85 (>14) LAT E' 3.30 (<10 cm/sec) LAT A' 12.40 cm/s E/LAT E' Ratio 17.91 (>14) Aortic Valve LVOT Max 95.00 (70-110 cm/s) LVOT VTI 15.55 cm AoV Peak Percy. 153.00 (50-130 cm/s) AO Peak GR. 9.40 mmHg AO Mean GR. 4.60 (<5 mmHg) AO VTI 25.95 (18-25 cm) EBONI (VTI) 1.86 (2.5-4.5 cm2) Mitral Valve MV E Max Percy. 59.00 (40-130 cm/s) MV A Velocity 96.00 (40-130 cm/s) E/A Ratio 0.62 MV Decel. Time 160.00 (160-240 ms) MV Mean Gr. 2.90 (<2mmHg) MV PHT 47.00 ms Pulmonary Valve PV Peak Velocity 47.00 (50-150 cm/s) Tricuspid Valve TR P. Velocity 243.00 cm/s RAP Estimate 10.00 mmHg RVSP 33.60 mmHg Left Ventricle Technically difficult study because of the patient factors and poor acoustic windows, left atrium is mildly enlarged, left ventricle is normal size, mild concentric left ventricular hypertrophy, estimated ejection fraction 35%, there is marked hypokinesis involving the inferior, basal septum inferior basal and posterolateral wall, grade 1 diastolic dysfunction seen without tissue Doppler evidence of raise left atrial pressure. Right Ventricle Right atrium and right ventricle are normal size and contractility, AICD lead seen in right ventricle. Aortic Valve Aortic valve is thickened and calcified without Doppler evidence of aortic stenosis or aortic insufficiency. Mitral Valve Mitral valve leaflets are minimally thickened, there is mild mitral regurgitation. Tricuspid Valve Tricuspid valve grossly normal, there is mild tricuspid regurgitation, calculated right ventricular systolic pressure is 33 mmHg. Pulmonic Valve Pulmonic valve is poorly visualized. Great Vessels Aortic root is normal size. Inferior vena cava is poorly visualized. Pericardium No significant pericardial effusion noted. Conclusion 1. Technically difficult study because of the patient factors and poor acoustic windows. Mildly enlarged left atrium, normal left ventricular size, mild concentric left ventricular hypertrophy, estimated ejection fraction 35% with multiple segmental wall motion abnormality described above, grade 1 diastolic dysfunction without tissue Doppler evidence of raise left atrial pressure. 2. Mild mitral and tricuspid regurgitation, calculated right ventricular systolic pressure 33 mmHg. 3. No significant pericardial effusion. 4. Inferior vena cava is poorly visualized. Electron
[2021-08-12 14:32] LABS: Alanine Aminotransferase 40 U/L (12-78); Alkaline Phosphatase 100 U/L (38-126); Anion Gap 10.8 mEq/L (5-15); Aspartate Amino Transferase 45 U/L (14-36); Bilirubin,Indirect 0.3 mg/dL (0.0-0.9); Bilirubin,Total 0.3 mg/dl (0.2-1.3); Bilirubin,Unconjugated 0.5 mg/dL (0.0-1.1); Blood Urea Nitrogen 13 mg/dl (7-17); Carbon Dioxide 28 mmol/L (22.0-30.0); Chloride 105 mmol/L (98-107); Chol/HDL Ratio 2.4 (1-3.5); Cholesterol 111 mg/dl (140-200); Estimated Glomerular Filt Rate 55 ml/min (>60); GFR (African American) 66 ML/MIN (>60); Glucose 100 mg/dl (74-100); HDL Cholesterol 47 mg/dl (40-60); Potassium 4.8 mmoL/L (3.5-5.1); Sodium 139 mmol/L (136-145); Triglycerides 130 mg/dl (30-150); VLDL Cholesterol 26 mg/dL (0-40)
[2021-08-12 14:44] LABS: Direct LDL Cholesterol 37.07 mg/dL (100-129)
[2021-08-12 14:49] LABS: Free Thyroxine Index 5.2 ug/dL (5.93-13.13); T4 (Thyroxine) 14.8 ug/dl (5.53-11.0); Triiodothryronine (T3) Uptake 35 % (23.5-40.5)
[2021-08-12 15:03] LABS: Thyroid Stimulating Hormone 0.39 uIU/mL (0.465-4.68)
== END ==
PROVIDERS: PCP Nurse Practitioner Family; Visit Provider Physician Assistant
DX: I34.0 Nonrheumatic mitral (valve) insufficiency (principal); I42.0 Dilated cardiomyopathy; I50.32 Chronic diastolic (congestive) heart failure; I51.89 Other ill-defined heart diseases; J44.9 Chronic obstructive pulmonary disease, unspecified; R06.00 Dyspnea, unspecified; R94.31 Abnormal electrocardiogram [ECG] [EKG]; Z86.73 Personal history of transient ischemic attack (TIA), and cerebral infarction without residual deficits; Z95.810 Presence of automatic (implantable) cardiac defibrillator; I25.118 Atherosclerotic heart disease of native coronary artery with other forms of angina pectoris; F17.200 Nicotine dependence, unspecified, uncomplicated; I49.3 Ventricular premature depolarization; I50.20 Unspecified systolic (congestive) heart failure; Z79.899 Other long term (current) drug therapy
CPT/HCPCS: 36415; 80048; 80061; 80076; 84436; 84443; 84479; 93306

== ENCOUNTER → 2021-11-15 13:59 | Outpatient (CLI) | payer MEDICARE, MEDICAID, SELFPAY ==
--- NOTE | 2021-11-15 14:06 | XR_ITS ---
FINAL REPORT CLINICAL HISTORY: ACUTE MIDLINE THORACIC BACK PAIN COMPARISON: April 10, 2021 FINDINGS: THORACIC SPINE SERIES. AP and lateral views were obtained. There is mild wedging of a midthoracic vertebrae of uncertain age that is favored to be chronic. There are moderate degenerative changes. There is leftward curvature centered at approximately T11. There is no malalignment. IMPRESSION: Age indeterminate midthoracic mild compression is favored to be chronic. Moderate degenerative change. Reviewed, Interpreted and Dictated by David Amador III, MD Transcribed by Misha Reed Authenticated and [facility]
--- NOTE | 2021-11-15 14:07 | XR_ITS ---
FINAL REPORT CLINICAL HISTORY: SOB COMPARISON: April 10, 2021 FINDINGS: Two views of the chest were obtained. There is a left subclavian ICD. The heart size and pulmonary vascularity are within normal limits. The mediastinum is normal. There is localized eventration of the right hemidiaphragm. There is mild right lung base atelectasis or scarring. There is no pneumothorax. The bony thorax is intact. IMPRESSION: Mild right base atelectasis or scarring. Reviewed, Interpreted and Dictated by David Amador III, MD Transcribed by Misha Reed Authenticated and [facility]
== END ==
PROVIDERS: PCP Nurse Practitioner Family; Visit Provider Nurse Practitioner Family
DX: R06.02 Shortness of breath (principal); M54.6 Pain in thoracic spine
CPT/HCPCS: 71046; 72072

== ENCOUNTER → 2021-12-17 14:14 | Outpatient (CLI) | payer MEDICARE, MEDICAID, SELFPAY ==
--- NOTE | 2021-12-17 14:18 | CT_ITS ---
FINAL REPORT TECHNIQUE: Axial CT images of the thoracic spine were obtained without contrast. Sagittal and coronal reformatted images were also obtained. This study was performed with techniques to keep radiation doses as low as reasonably achievable (ALARA). Individualized dose reduction techniques using automated exposure control or adjustment of mA and/or kV according to the patient's size were employed. CLINICAL HISTORY: MIDLINE THORACIC BACK PAIN FINDINGS: There is a moderate T4 inferior endplate compression fracture of indeterminate age that is favored to be chronic. The bones are osteopenic. The vertebral alignment is normal. There are severe degenerative changes. There is multilevel disc space narrowing and osteophyte formation. There is no evidence of significant canal stenosis. No paraspinous soft tissue abnormality is identified. A non-obstructing stone is seen in the left kidney. There is mild scarring in the lungs. IMPRESSION: Moderate T4 inferior endplate compression fracture is of indeterminate age but favored to be chronic. Osteopenia and severe degenerative change. Reviewed, Interpreted and Dictated by David Amador III, MD Transcribed by Misha Reed Authenticated and [facility]
== END ==
PROVIDERS: PCP Nurse Practitioner Family; Visit Provider Nurse Practitioner Family
DX: M54.6 Pain in thoracic spine (principal); M43.9 Deforming dorsopathy, unspecified; S22.000A Wedge compression fracture of unspecified thoracic vertebra, initial encounter for closed fracture
CPT/HCPCS: 72128

== ENCOUNTER → 2021-12-25 14:16 | Outpatient (CLI) | payer MEDICARE, MEDICAID, SELFPAY ==
[2021-12-25 15:15] LABS: Anion Gap 15.3 mEq/L (5-15); Blood Urea Nitrogen 11 mg/dl (7-17); Calcium 9.1 mg/dl (8.4-10.2); Carbon Dioxide 29 mmol/L (22.0-30.0); Chloride 101 mmol/L (98-107); Estimated Glomerular Filt Rate 55 ml/min (>60); GFR (African American) 66 ML/MIN (>60); Glucose 118 mg/dl (74-100); Potassium 4.3 mmoL/L (3.5-5.1); Sodium 141 mmol/L (136-145)
== END ==
PROVIDERS: PCP Nurse Practitioner Family; Visit Provider Nurse Practitioner Family
DX: I25.118 Atherosclerotic heart disease of native coronary artery with other forms of angina pectoris (principal); I50.20 Unspecified systolic (congestive) heart failure; I51.9 Heart disease, unspecified; Z95.810 Presence of automatic (implantable) cardiac defibrillator
CPT/HCPCS: 36415; 80048

== ENCOUNTER 2022-01-27 15:58 | Emergency (ER) | payer MEDICARE, MEDICAID, SELFPAY ==
[2022-01-27 17:38] VITALS: BP 123/84; PULSE 115; RESP 15; TEMP 36.7; O2SAT 95; BMI 28.5
--- NOTE | 2022-01-27 17:40 | EXP.UTC ---
Discharge Plan Disposition Patient Disposition: Home, Self-Care Condition: Good Prescriptions Prescriptions: New cyclobenzaprine 10 mg Tablet 10 mg PO BID PRN (Reason: Muscle Spasm) Qty: 20 0RF prednisone 10 mg tablet 10 mg PO DIRECTED 9 Days Qty: 21 0RF Rx Instructions: Take 4 tablets daily for 3 days, then take 2 tablets daily for 3 days, then take 1 tablet daily for 3 days, then stop. No Action nicotine 21 mg/24 hr patch 24 hour 1 patch TRANSDERMA DAILY Trelegy Ellipta 100-62.5-25 mcg blister with device 1 inh INHALATION DAILY cyclobenzaprine 10 mg tablet 10 mg PO TID aspirin 81 mg tablet,delayed release (DR/EC) 81 mg PO DAILY Qty: 90 3RF atorvastatin 40 mg tablet 40 mg PO HS Qty: 90 3RF Jardiance 10 mg tablet 10 mg PO DAILY Qty: 90 3RF furosemide [Lasix] 40 mg tablet 40 mg PO DAILY Qty: 90 3RF losartan 100 mg tablet 50 mg PO QDAY Qty: 90 3RF metoprolol tartrate 50 mg tablet 50 mg PO BID Qty: 180 3RF spironolactone 25 mg tablet 25 mg PO DAILY Qty: 90 3RF amiodarone 200 mg tablet 200 mg PO DAILY Qty: 90 3RF omeprazole 20 MG capsule,delayed release(DR/EC) 20 mg PO DAILY albuterol sulfate 2.5 MG/0.5 ML solution for nebulization 3 mg IH BID levothyroxine 88 MCG tablet 88 mcg PO DAILY montelukast [Singulair] 10 MG tablet 10 mg PO DAILY fluticasone propionate 9.9 ML spray,suspension 1 spray INTRANASAL DAILY Rx Instructions: administer into each nostril ascorbic acid (vitamin C) 1,000 MG tablet 1,000 mg PO DAILY zinc gluconate 10 MG lozenge 15 mg PO DAILY magnesium 200 MG tablet 400 mg PO DAILY B complex-vitamin C-folic acid 400 MCG tablet 1 tab PO DAILY Rx Instructions: UNKNOWN DOSE multivitamin with folic acid 1 EACH tablet 1 each PO DAILY calcium-vitamin D3-vitamin K 1 EACH tablet,chewable 1 each PO DAILY Referrals Follow up/Referrals: Debby Russo APRN [Primary Care Provider] - See instructions Activity Restrictions/Add. Instructions Additional Instructions/Restrictions: Go home and rest. It would be best if you rested tomorrow too. No heavy lifting. No twisting. Take the oral medications as directed. The muscle relaxer (cyclobenzaprine--Flexeril) will make you drowsy, so don't drive or operate heavy machinery after taking it. Don't start the oral steroids (prednisone) until tomorrow, since you had the shots in here today. Follow up with your regular doctor and the pain specialist that you have been referred to. GO TO THE ER FOR ANY WORSENING SYMPTOMS OR CONCERN, ESPECIALLY BOWEL OR BLADDER ISSUES, SADDLE AREA NUMBNESS, FEVER, ETC Clinical Impressions Clinical Impression: Back pain, thoracic Instructions Patient Instructions: Methylprednisolone Injection, Ketorolac Injection, DI for Thoracic Back Pain Discharge ED Provider: Juan Daniel Bradford [facility] General Stated complaint: back pain, no known accident Time Seen by Provider: 01/27/22 17:40 History of Present Illness Provider Complaint: She states that over the past 3 months she has episodes of thoracic and low back pain. She has been seen by her pcp. She has been referred to a pain specialist for her back, but her appt is not for another 2 weeks. She denies any known injuries, recent falls,etc. Related Data Home Medications Medication Instructions Recorded Confirmed cyclobenzaprine 10 mg tablet 10 mg PO TID Pain 03/04/17 12/19/21 albuterol sulfate 2.5 mg/0.5 mL 3 mg inhalation BID COPD 12/03/20 12/19/21 solution for nebulization ascorbic acid (vitamin C) 1,000 mg 1,000 mg PO DAILY Supplement 12/03/20 12/19/21 tablet calcium-vitamin D3-vitamin K 500 1 each PO DAILY Supplement 12/03/20 12/19/21 mg-1,000 unit-40 mcg chewable tablet fluticasone propionate 50 1 spray intranasal DAILY ALLERGIES 12/03/20 12/19/21 mcg/actuation nasal spr
[2022-01-27 18:24] VITALS: BP 123/84; PULSE 115; RESP 15; TEMP 36.7
== END 2022-01-27 18:25 | disposition home or self-care (01) ==
PROVIDERS: Emergency Provider Nurse Practitioner Family; PCP Nurse Practitioner Family
DX: M54.6 Pain in thoracic spine (principal)
CPT/HCPCS: 96372; 99213; G0463

== ENCOUNTER → 2022-02-03 13:37 | Outpatient (POV) | payer MEDICARE, MEDICAID, SELFPAY ==
[2022-02-03 13:49] VITALS: BP 92/73; PULSE 70; RESP 20; BMI 26.6
--- NOTE | 2022-02-03 14:26 | EXP.PAIN.OV ---
HPI Data of Consult Patient: new to practice Consult date: 02/03/22 Requesting Physician: Veena Joseph APRN Primary Care Provider: Debby Russo APRN Consult Narrative Reason for consult: Mid/upper back pain, shoulder pain, chest pain History of present illness: Ms. Perez is a 71 year old female who presents today as a new patient. She is a referral from Dr. Nikos Joseph's office. Today she rates her pain a 8 out of 10. Patient states her pain is all in her upper back/neck and mid back with radiating symptoms laterally into her chest. Patient describes this as a aching, throbbing sensation that is worse with increased activity. Patient states she has had the upper back/neck pain over the last year and states she has had shoulder imaging that showed arthritis. Patient states she will frequently use a baby and around her upper right forearm which does help some of her symptoms on the right side. Patient states her mid back pain that radiates laterally into her upper chest and under her breast has been going on for several years and worsened over time. Patient states she has been having episodes of stumbling with some falls over the last couple of weeks but denies any significant trauma. Patient states she did go to urgent treatment on the due to her back pain and was seen by Dr. Ramirez. Patient states she does only take [id number] Tylenol currently that helps with some of her symptoms. Patient is prescribed a muscle relaxer, cyclobenzaprine 10 mg 3 times daily as needed. Patient states this does help along with Aspercreme and a heating pad. Patient denies any physical therapy or chiropractor history. Patient does state that she is unable to tolerate any MRI that she does have a pacemaker and defibrillator in place as well as she had a major stroke years ago and had metal clamps placed in her brain. Patient does see Dr. Rodriguez for her cardiac related issues and states that she does have shaking in her upper extremities that has occurred since her stroke that is worse for her and times of increased concentration. Her Tho is [phone]. It has been reviewed and appropriate. CC: Veena Joseph APRN [facility] Disclaimer: The information contained in this section may have been updated after the patient was seen, as this information can be updated by other users. Medical History Abnormal electrocardiography CAD (coronary artery disease) Cardiomyopathy Chest pain COPD (chronic obstructive pulmonary disease) Dyspnea History of CVA (cerebrovascular accident) Hyperlipidemia Moderate to severe mitral regurgitation Palpitations PVCs (premature ventricular contractions) Ventricular tachycardia Social History (Updated 02/03/22 @ 14:01 by Siria Ching RN) Smoking Status: Current every day smoker tobacco type: cigarettes packs per day: 1 second hand exposure: No alcohol intake: never counseling provided: none substance use type: other current occupational status: retired Travel in the last 8 weeks: None household members: family housing: house current occupational exposures/hazards: No caffeine: Yes Review of Systems Review of Systems Review of systems:: pertinent systems reviewed and negative unless documented below Review of systems (narrative): Review of Systems: General: No recent weight changes, no fever, no sleep disturbances Respiratory: No cough, no shortness of air, no recurring pulmonary infections Cardiovascular/peripheral vascular: No chest pain, no palpitations, no edema, no shortness of breath Gastrointestinal: No new onset incontinence, normal bowel movements reported Genitourinary: No new onset incontinence Musculoskeletal: Mid/upper back pain, shoulder pain Psychiatric: [Normal mood/affect] Neurological: [Denies weakness in extremities], [denies balance issues] Meds Home Medications and Allergies Home Medications Medic
== END ==
PROVIDERS: PCP Nurse Practitioner Family; Visit Provider Nurse Practitioner Family
DX: M54.9 Dorsalgia, unspecified (principal); M54.12 Radiculopathy, cervical region; M25.519 Pain in unspecified shoulder; M51.34 Other intervertebral disc degeneration, thoracic region; R07.89 Other chest pain
CPT/HCPCS: 99202; G0463

== ENCOUNTER 2022-02-11 22:23 | Inpatient (IN) | payer MEDICARE, MEDICAID, SELFPAY ==
--- NOTE | 2022-02-11 22:22 | ECG_ITS ---
APPROVED REPORT Exam: Resting ECG HR:121 bpm ECG Measurements Heart Rate 121 AXES NM 141 P 44 QRSd 82 QRS 49 QT 339 T 78 QTc 411 Conclusion SINUS TACHYCARDIA WITH OCCASIONAL ECTOPIC PREMATURE COMPLEXES NONSPECIFIC ST & T-WAVE ABNORMALITY ABNORMAL RHYTHM ECG UNCONFIRMED REPORT Electronically signed by : Justin Damian MD 02/12/2022 13:28:06
[2022-02-11 22:24] VITALS: BP 138/102; PULSE 118; RESP 30; TEMP 36.6; O2SAT 86; BMI 28.5
[2022-02-11 22:26] VITALS: BP 152/132; PULSE 103; RESP 32; O2SAT 95
[2022-02-11 22:31] VITALS: BP 124/109; PULSE 115; RESP 24; O2SAT 93
[2022-02-11 22:39] VITALS: BMI 28.5
--- NOTE | 2022-02-11 22:39 | XR_ITS ---
PROCEDURE INFORMATION: Exam: XR Chest Exam date and time: 02/11/2022 11:06 PM Age: 71 years old Clinical indication: Pain; Left-sided; Prior surgery; Additional info: Cp TECHNIQUE: Imaging protocol: Radiologic exam of the chest. Views: 1 view. COMPARISON: CR XR CHEST 2V 11/15/2021 2:09 PM FINDINGS: Limitations: Rotation - mild. Tubes, catheters and devices: LEFT pacemaker. Leads overlying chest. Lungs: Mild underinflation. Subsegmental atelectasis/scarring within RIGHT lung base. No definite consolidation. Pleural spaces: No significant pleural effusion. No pneumothorax. Heart/Mediastinum: No cardiomegaly. Atherosclerosis of thoracic aorta. Bones/joints: No displaced fracture. Soft tissues: Unremarkable. IMPRESSION: No definite acute cardiopulmonary disease.
[2022-02-11 22:54] LABS: Basophils # 0.1 K/mm3 (0-0.2); Basophils % 0.5 % (0.1-2.0); Eosinophils # 0.2 K/mm3 (0.0-0.4); Hematocrit 51.1 % (37.0-47.0); Hemoglobin 16.7 g/dL (12.2-16.2); Lymphocytes # 2.7 K/mm3 (0.7-4.5); Lymphocytes % 12.5 % (10-50); Mean Corpuscular HGB Conc 32.6 g/dL (31.8-35.4); Mean Corpuscular Hemoglobin 33.8 pg (27.0-31.2); Mean Corpuscular Volume 103.5 fl (81-99); Mean Platelet Volume 8.5 fl (7.4-10.4); Monocytes # 1.4 K/mm3 (0.1-1.0); Monocytes % 6.3 % (1.7-9.3); Neutrophils # 16.9 K/mm3 (1.8-7.8); Neutrophils % 79.6 % (37.0-80.0); Platelet Count 366 K/mm3 (142-424); Red Blood Count 4.94 M/mm3 (4.20-5.40); Red Cell Distribution Width 15.3 % (11.5-17.5); White Blood Count 21.3 K/mm3 (4.8-10.8)
[2022-02-11 22:55] LABS: MANUAL DIFFERENTIAL MANUAL DIFFERENTIAL (MANUAL DIFF)
[2022-02-11 22:55] LABS: ABG Base Excess -4.5 mmol/L (-2.4-2.3); ABG HCO3 19.8 mmhg (22.0-26.0); ABG Oxygen Saturation 95 % (90-100); ABG PCO2 30.5 mmhg (35.0-45.0); ABG PH 7.43 mmol/L (7.35-7.45); ABG TCO2 20.7 mmhg (23-27); Allen's Test Acceptable; Oxygen 3LPM %; Source Right Radial
[2022-02-11 22:57] LABS: Coronavirus 19, PCR Not Detected (NotDetected); Influenza A, PCR Not Detected (NotDetected); Influenza B, PCR Not Detected (NotDetected)
[2022-02-11 22:59] LABS: Alanine Aminotransferase 28 U/L (12-78); Albumin Level 4.1 g/dl (3.5-5.0); Alkaline Phosphatase 146 U/L (38-126); Anion Gap 13.7 mEq/L (5-15); Aspartate Amino Transferase 30 U/L (14-36); Bilirubin,Direct 0.1 mg/dl (0.0-0.4); Bilirubin,Indirect 0.3 mg/dL (0.0-0.9); Bilirubin,Total 0.4 mg/dl (0.2-1.3); Bilirubin,Unconjugated 0.3 mg/dL (0.0-1.1); Blood Urea Nitrogen 20 mg/dl (7-17); Calcium 9.9 mg/dl (8.4-10.2); Carbon Dioxide 26 mmol/L (22.0-30.0); Chloride 105 mmol/L (98-107); Creatinine Clearance Estimated 49 mL/min (50-200); Estimated Glomerular Filt Rate 44 ml/min (>60); GFR (African American) 54 ML/MIN (>60); Glucose 154 mg/dl (74-100); Magnesium 1.8 mg/dl (1.6-2.3); Potassium 3.7 mmoL/L (3.5-5.1); Sodium 141 mmol/L (136-145); Total Protein,Serum 7.3 g/dl (6.3-8.2)
[2022-02-11 23:17] LABS: Lactic Acid 1.6 mmol/L (0.7-2.1)
[2022-02-11 23:20] LABS: Troponin I < 0.01 ng/ml (0.00-0.034)
--- NOTE | 2022-02-11 23:37 | HMH.EDSOB ---
Discharge Plan Disposition Patient Disposition: Admitted As Inpatient Chief Complaint: Shortness of Breath/Dyspnea Prescriptions Prescriptions: No Action Trelejose Ellipta 100-62.5-25 mcg blister with device 1 inh INHALATION DAILY cyclobenzaprine 10 mg tablet 10 mg PO TID aspirin 81 mg tablet,delayed release (DR/EC) 81 mg PO DAILY Qty: 90 3RF atorvastatin 40 mg tablet 40 mg PO HS Qty: 90 3RF losartan 100 mg tablet 50 mg PO QDAY Qty: 90 3RF metoprolol tartrate 50 mg tablet 50 mg PO BID Qty: 180 3RF omeprazole 20 MG capsule,delayed release(DR/EC) 20 mg PO DAILY albuterol sulfate 2.5 MG/0.5 ML solution for nebulization 3 mg IH BID levothyroxine 88 MCG tablet 88 mcg PO DAILY fluticasone propionate 9.9 ML spray,suspension 1 spray INTRANASAL DAILY Rx Instructions: administer into each nostril ascorbic acid (vitamin C) 1,000 MG tablet 1,000 mg PO DAILY zinc gluconate 10 MG lozenge 15 mg PO DAILY magnesium 200 MG tablet 400 mg PO DAILY B complex-vitamin C-folic acid 400 MCG tablet 1 tab PO DAILY Rx Instructions: UNKNOWN DOSE multivitamin with folic acid 1 EACH tablet 1 each PO DAILY calcium-vitamin D3-vitamin K 1 EACH tablet,chewable 1 each PO DAILY Benefiber (guar gum) Packet 2 tbsp PO DAILY Rx Instructions: mix into at least 8 oz of water or juice before administering hydrocodone-acetaminophen 7.5-325 mg tablet 1 tab PO Q6HP PRN (Reason: Pain) cetirizine 10 mg Capsule 10 mg PO DAILY furosemide [Lasix] 40 mg tablet 40 mg PO DAILY amiodarone 200 mg tablet 200 mg PO DAILY spironolactone 25 mg tablet 25 mg PO DAILY Jardiance 10 mg tablet 10 mg PO DAILY Referrals Follow up/Referrals: Debby Russo APRN [Primary Care Provider] - See instructions Clinical Impressions Clinical Impression: Acute exacerbation of chronic obstructive airways disease, Tobacco dependence syndrome, Automatic implantable cardioverter-defibrillator in situ, SIRS (systemic inflammatory response syndrome), Fracture, ribs, Pelvic mass in female Discharge ED Provider: Jairo Arias Resp/SOB HPI General Chief Complaint: Shortness of Breath/Dyspnea Stated Complaint: chest pain Time Seen by Provider: 02/11/22 23:37 Mode of Arrival: Wheelchair Source of Information: Patient Limitations: No Limitations Description of Symptoms (Recalled from ER Triage Doc. by RN): Pt c/o midsternal chest pain rates 2/10. Pt also has SOA and labored breathing. She wears 3LPM NC and continues to smoke. She denies any radiating pain. Denies n/v/d, productive cough, fever, or chills. States she has been feeling this way for I don't know maybe a couple of days . History of Present Illness pt with progressive sob over the last few days with hx of copd with dec po intake - has increased sob and reports multiple falls over the last few days -does smoke - MD Complaint: shortness of breath, cough, pain with inspiration and chest pain Onset (ago): day(s) Context: smoke/fume exposure Severity: moderate Consistency/Duration: intermittent Known history of: COPD and congestive heart failure Associated symptoms: chest pain Related Data Home oxygen amount: 3 liters Home Medications Medication Instructions Recorded Confirmed cyclobenzaprine 10 mg tablet 10 mg PO TID Pain 03/04/17 02/11/22 albuterol sulfate 2.5 mg/0.5 mL 3 mg inhalation BID COPD 12/03/20 02/11/22 solution for nebulization ascorbic acid (vitamin C) 1,000 mg 1,000 mg PO DAILY Supplement 12/03/20 02/11/22 tablet calcium-vitamin D3-vitamin K 500 1 each PO DAILY Supplement 12/03/20 02/11/22 mg-1,000 unit-40 mcg chewable tablet fluticasone propionate 50 1 spray intranasal DAILY ALLERGIES 12/03/20 02/11/22 mcg/actuation nasal spray,suspension levothyroxine 88 mcg tablet 88 mcg PO DAILY THYROID 12/03/20 02/11/22 magnesium 200 mg tab
[2022-02-11 23:41] LABS: Eosinophils % 2 % (0-3); Lymphocytes % 14 % (10-50); Monocytes % 4 % (2-9); Neutrophils % 79 % (42-76); Total Cells Counted 100
[2022-02-11 23:43] LABS: Platelet Estimate Normal; RBC Morphology Normal
--- NOTE | 2022-02-11 23:47 | CT_ITS ---
PROCEDURE INFORMATION: Exam: CT Abdomen And Pelvis Without Contrast Exam date and time: 02/11/2022 11:58 PM Age: 71 years old Clinical indication: Abdominal pain; Additional info: Abd pain TECHNIQUE: Imaging protocol: Computed tomography of the abdomen and pelvis without contrast. Radiation optimization: All CT scans at this facility use at least one of these dose optimization techniques: automated exposure control; mA and/or kV adjustment per patient size (includes targeted exams where dose is matched to clinical indication); or iterative reconstruction. COMPARISON: ABDPELW/O CT ABD PELVIS W/O CONTRAST 07/26/2016 3:32 PM FINDINGS: Limitations: Lack of intravenous contrast. Lower thorax: See chest CT report for additional details. Liver: Fatty infiltration. Gallbladder and bile ducts: Gallbladder not visualized. No significant ductal dilation. Pancreas: Unremarkable. No ductal dilation. Spleen: Several splenic remnants. Adrenal glands: Mild hypertrophy of adrenal glands. Kidneys and ureters: Several small renal calculi. Few too small to characterize lesions within kidneys (<1 cm). No significant hydronephrosis. Stomach and bowel: RIGHT hemicolectomy. No definite mural thickening. No obstruction. Appendix: Appendectomy. Intraperitoneal space: No significant fluid collection. No definite free air. Vasculature: Moderate atherosclerotic disease. No aneurysm. Lymph nodes: No pathologically enlarged lymph nodes. Urinary bladder: Unremarkable. Reproductive: 5.8 x 8.3 x 5.1 cm septated cystic and solid lesion within RIGHT adnexal region, new in interval. 4.9 x 4.5 x 3.5 cm septated cystic and solid lesion within LEFT adnexal region, new in interval. Bones/joints: Degenerative changes of spine. No acute fracture. Soft tissues: Postsurgical changes of anterior abdominal wall. Small paramidline ventral hernia containing fat. Small midline ventral hernia containing knuckle of stomach. IMPRESSION: Bilateral adnexal lesions, new in interval and suspicious for malignancy. Further evaluation with prompt non-emergent ultrasound or prompt non-emergent MRI is recommended to characterize. (Reference: Gurpreet) COMMENTS: Consistent with the [employer]'s Incidental Findings Committee white paper (J Am Hany Radiol 2018): Any incidental renal lesion less than 1 cm or classified as too small to characterize, or any incidental cystic renal lesion characterized as simple-appearing, is likely benign. No follow-up imaging is recommended for these lesions per consensus recommendations based on imaging criteria. REFERENCES: Gurpreet et al. Management of Incidental Adnexal Findings on CT and MRI: A White Paper of the ACR Incidental Findings Committee, J Am Hany Radiol. 2019;17(2):248-254.
[2022-02-12] VITALS (17 sets, daily range): BP systolic 111–144; BP diastolic 64–82; PULSE 94–116; RESP 16–26; TEMP 36.6–37; O2SAT 83–94; BMI 27.5
--- NOTE | 2022-02-12 | CT_ITS ---
PROCEDURE INFORMATION: Exam: CTA Chest With Contrast Exam date and time: 02/12/2022 12:03 AM Age: 71 years old Clinical indication: Sternal or substernal pain; Prior surgery; Additional info: Abd pain TECHNIQUE: Imaging protocol: Computed tomographic angiography of the chest with contrast. 3D rendering (Not supervised by radiologist): MIP and/or 3D reconstructed images were created by the technologist. Radiation optimization: All CT scans at this facility use at least one of these dose optimization techniques: automated exposure control; mA and/or kV adjustment per patient size (includes targeted exams where dose is matched to clinical indication); or iterative reconstruction. Contrast material: ISOVUE; Contrast volume: 70 ml; Contrast route: INTRAVENOUS (IV); COMPARISON: CR XR CHEST PORTABLE 02/11/2022 11:06 PM FINDINGS: Tubes, catheters and devices: LEFT pacemaker. Pulmonary arteries: No pulmonary embolism. Vasculature: [id number]-[id number]-ldirtleb atherosclerotic disease. No aneurysm. Thyroid: Subcentimeter nodule LEFT lobe. RIGHT lobe not visualized. Lungs: Mild emphysematous changes. Mild linear atelectasis/scarring. No consolidation. RUL calcified granuloma. Few nodules and/or focal scarring, up to 0.3 cm. Pleural spaces: No significant pleural effusion. No pneumothorax. Heart: No cardiomegaly. Mild coronary artery calcifications. No significant pericardial effusion. Lymph nodes: Calcified mediastinal and hilar lymph nodes. Bones/joints: Degenerative changes of spine. Moderate compression fracture T4, T5 vertebral bodies, acute or subacute. Fracture LEFT lateral third, fourth, fifth ribs, acute or subacute. Fracture LEFT posterior fifth, sixth ribs, acute or subacute. Soft tissues: Unremarkable. Upper abdomen: See abdomen CT report for additional details. IMPRESSION: 1. No CT evidence of pulmonary embolism. 2. Fractures as above. 3. Pulmonary nodules. For patients at low risk (minimal or absent history of smoking and of other known risk factors), no routine follow-up is indicated. For patients at high risk (history of smoking or of other known risk factors), consider optional CT at 12 months. (robson Miller., Fleischner Society, 2017)
--- NOTE | 2022-02-12 00:14 | PC.NURSE ---
IV infiltrated during ct for pe with iv contrast. notified. IV was immediately removed upon returning to room. Ice pack applied to iv site and site was elevated on a pillow. No new orders from .
--- NOTE | 2022-02-12 01:42 | EXP.HP ---
History of Present Illness *Admission Date: 02/12/22 *Reason for visit:: Shortness of air, falls *History of present illness: Ms. Perez is a 71-year-old female with a past medical history of COPD, on chronic home oxygen, HFrEF, HTN, history of colon cancer s/p colon resection, Hypothyroidism and chronic tobacco use. She presents to [facility] due to shortness of air and falls that have been increasing over the last week. The patient was seen on admission in the ER. She reports that she has fallen five times in the last week due to weakness that has been associated with increasing shortness of air. She denies losing consciousness with the falls, but does report a continued cough that has been productive in nature. In the ER, the patient underwent a CBC that showed a WBC of 21K. Influenza and Covid testing were negative. CTA of the chest showed fractures of the left lateral 3rd, 4th and 5th ribs and left posterior 5th and 6th ribs and pulmonary nodules. CT of the abdomen and pelvis showed bilateral adnexa lesions suspicious for malignancy with minimal stranding nodules along omentum concerning for metasis. The patient will be admitted with initial impression: Acute on Chronic Hypoxic Respiratory Failure, COPD exacerbation and falls. She will be placed on nebulizers, sputum sent for gram stain and culture, placed on antibiotics, PT/OT consulted to see the patient and TVUS ordered for evaluation of abdominal CT of abdomen of pelvis. [facility] Disclaimer: The information contained in this section may have been updated after the patient was seen, as this information can be updated by other users. Medical History Abnormal electrocardiography CAD (coronary artery disease) Cardiomyopathy Chest pain COPD (chronic obstructive pulmonary disease) Dyspnea History of CVA (cerebrovascular accident) Hyperlipidemia Moderate to severe mitral regurgitation Palpitations PVCs (premature ventricular contractions) Ventricular tachycardia Social History (Updated 02/12/22 @ 02:42 by Micaela Rosales RN) Smoking Status: Current every day smoker tobacco type: cigarettes packs per day: 1 years smoked: 50 second hand exposure: No alcohol intake: never counseling provided: none substance use type: other current occupational status: retired Travel in the last 8 weeks: None household members: family housing: house current occupational exposures/hazards: No caffeine: Yes Review of Systems Review of Systems Review of systems:: pertinent systems reviewed and negative unless documented below Constitutional Constitutional: Reports system reviewed and no additional complaints, except as documented Eyes Eyes: Reports system reviewed and no additional complaints, except as documented ENT Ears, Nose, Mouth, and Throat: Reports system reviewed and no additional complaints, except as documented *Cardiovascular Cardiovascular: Reports chest pain, Reports dyspnea and Reports dyspnea on exertion *Respiratory Respiratory: Reports change in phlegm color, Reports chest congestion, Reports cough, Reports dyspnea and Reports dyspnea on exertion *Gastrointestinal Gastrointestinal: Reports system reviewed and no additional complaints, except as documented *Genitourinary Genitourinary: Reports system reviewed and no additional complaints, except as documented *Musculoskeletal Musculoskeletal: Reports system reviewed and no additional complaints, except as documented Integumentary/Breasts Skin/Breast: Reports system reviewed and no additional complaints, except as documented *Neurologic Neurologic: Reports system reviewed and no additional complaints, except as documented Psychiatric Psychiatric: Reports system reviewed and no additional complaints, except as documented Endocrine Endocrine: Reports system reviewed and no additional complaints, except as documented Hematologic/Lymph
--- NOTE | 2022-02-12 02:29 | PC.NURSE ---
PT ARRIVED TO THE FLOOR AT THIS TIME VIA WHEELCHAIR
[2022-02-12 02:32] LABS: Troponin I < 0.01 ng/ml (0.00-0.034)
--- NOTE | 2022-02-12 07:49 | HMH.PHAINT1 ---
Pharmacy Intervention Comments: Medication reconciliation completed via chart review and external fill history. -Nicole Wei, PharmD Candidate 2022
[2022-02-12 08:38] LABS: Troponin I < 0.01 ng/ml (0.00-0.034)
--- NOTE | 2022-02-12 09:52 | EXP.PULM.CON ---
History of Present Illness History of present illness: Ms. Gasca is a 71-year-old female current smoker greater than [id number] smoking history carries a diagnosis of COPD including her long-term oxygen therapy presented to hospital following worsening respiratory distress along with cough and frequent falls. Reports only scant productive phlegm. [facility] Disclaimer: The information contained in this section may have been updated after the patient was seen, as this information can be updated by other users. Medical History (Updated 02/12/22 @ 11:43 by Kvng Lyles MD) Abnormal electrocardiography CAD (coronary artery disease) Cardiomyopathy Chest pain COPD (chronic obstructive pulmonary disease) COPD exacerbation Dyspnea History of CVA (cerebrovascular accident) Hyperlipidemia Moderate to severe mitral regurgitation Palpitations PVCs (premature ventricular contractions) Ventricular tachycardia Social History (Updated 02/12/22 @ 02:42 by Micaela Rosales RN) Smoking Status: Current every day smoker tobacco type: cigarettes packs per day: 1 years smoked: 50 second hand exposure: No alcohol intake: never counseling provided: none substance use type: other current occupational status: retired Travel in the last 8 weeks: None household members: family housing: house current occupational exposures/hazards: No caffeine: Yes Review of Systems Constitutional Constitutional: Reports anorexia, Reports body ache(s) and Reports fatigue Eyes Eyes: Denies eye discharge, Denies dry eyes, Denies irritation and Denies itchy eyes ENT Ears, Nose, Mouth, and Throat: Reports disequilibrium, Denies epistaxis, Denies facial pain, Denies lip swelling and Denies throat swelling *Cardiovascular Cardiovascular: Reports dyspnea and Reports dyspnea on exertion *Respiratory Respiratory: Reports chest congestion, Reports cough, Reports dyspnea, Reports dyspnea on exertion, Denies excessive phlegm production and Reports wheezing *Gastrointestinal Gastrointestinal: Denies abdominal pain, Denies belching and Denies cramping *Musculoskeletal Musculoskeletal: Reports back pain, Reports myalgias and Reports other (No small joint swelling or Pain) *Neurologic Neurologic: Reports system reviewed and no additional complaints, except as documented and Reports disequilibrium Comments: Fall Psychiatric Psychiatric: Denies homicidal ideation and Denies suicidal ideation Endocrine Endocrine: Reports fatigue and Denies heat intolerance Hematologic/Lymphatic Hematologic/Lymphatic: Denies easy bleeding and Denies lymphadenopathy Allergic/Immunologic Allergic/Immunologic: Denies itchy eyes, Denies lip swelling, Denies throat swelling and Reports wheezing Pulmonology Exam Inpatient Vital signs and Labs for Last 24 Hours: Temp Pulse Resp BP Pulse Ox 98.3 F 116 H 20 122/70 91 L 02/12/22 08:00 02/12/22 08:00 02/12/22 08:00 02/12/22 08:00 02/12/22 08:00 Laboratory Results - last 24 hr 02/11/22 22:32: SARS-CoV-2 (PCR) Not detected, Influenza A Untype (PCR) Not detected, Influenza Type B (PCR) Not detected 02/11/22 22:33: WBC 21.3 H*, RBC 4.94, Hgb 16.7 H, Hct 51.1 H, MCV 103.5 H, MCH 33.8 H, MCHC 32.6, RDW 15.3, Plt Count 366, MPV 8.5, Neut % (Auto) 79.6, Lymph % (Auto) 12.5, Towns % (Auto) 6.3, Eos % (Auto) 1.0, Baso % (Auto) 0.5, Neut # (Auto) 16.9 H, Lymph # (Auto) 2.7, Towns # (Auto) 1.4 H, Eos # (Auto) 0.2, Baso # (Auto) 0.1, Total Counted 100, Neutrophils % (Manual) 79 H, Lymphocytes % (Manual) 14, Monocytes % (Manual) 4, Eosinophils % (Manual) 2, Basophils % (Manual) 1.0, Platelet Estimate Normal, RBC Morphology Normal 02/11/22 22:33: Sodium 141, Potassium 3.7, Chloride 105, Carbon Dioxide 26, Anion Gap 13.7, BUN 20 H, Creatinine 1.20 H, Estimated Creat Clear 49, Estimated GFR 44 L, Est GFR ( Amer) 54 L, Glucose 154 H, Calcium 9.9, Troponin I < 0.01 02/11/22 22:33: Magnesium 1.8 02/11/22 22:33: Total Bilirubin 0.4,
--- NOTE | 2022-02-12 11:00 | HMH.PTEV ---
Physical Therapy Evaluation Rehab PT IP Evaluation Start: 02/12/22 01:38 Freq: .once Status: Active Protocol: Document 02/12/22 09:30 DENZEL (Rec: 02/12/22 10:59 PHORNE [id number]) Subjective/History History History 71 yowf adm to [facility] with COPD exac and rib fxs. She reports she lives with her mother, no steps to enter the home and she is generally independent with all mobility st baseline. She uses oxygen via NC as needed at home. Subjective Subjective Currently no c/o this am. Rehab PT IP Eval Objective Appearance Patient Behavior Appropriate Patient Orientation Person,Place,Time Difficulty following instructions none Speech Pattern Clear Ambulation Patient Able to Ambulate Yes Ambulation Observation IP General Gait Pattern Observation Wide Based Gait Ambulation Distance (feet) 25 Ambulation Assistive Device None Ambulation Ability Supervision/Stand by Balance Ability to Arise Able, uses arms to help Sitting Balance Steady, safe Standing Balance Steady, wide stance Dynamic Sitting Balance Ability Good Dynamic Standing Balance Ability Fair Transfers Bed Transfer Ability Supervision/Stand by Chair Transfer Ability Supervision/Stand by Sit to Stand Bed Transfer Ability Supervision/Stand by Sit to Stand Chair Transfer Ability Supervision/Stand by ROM All Extremities PT ROM Status WFL MMT All Extremities PT MMT WFL Rehab PT IP prob,goals,plan Problems Date of Evaluation: 02/12/22 Discharge Plan PT Discharge Plan Pt currently appears to be at baseline for all mobility and is appropriate to return home once medically stable. Recommend Home Health therapy upon D/C. G -code Required No Eval Complexity Eval Charge Codes 65472 - Moderate Complexity PHYSICIAN CERTIFICATION: I certify the specified therapy services for Juani Perez are required, authorized, and reviewed every 30 days.
--- NOTE | 2022-02-12 15:40 | SW/DCPLANNER ---
Addendum entered by [facility] 02/20/22 08:09: Per Joyce this patient has been approved and can be accepted at [facility] once medically stable for discharge. Patient will NOT need a COVID swab prior to discharge. Addendum entered by [facility] 02/19/22 10:27: [facility] stated that precert is pending at this time. Addendum entered by [facility] 02/18/22 13:59: [facility] stated that she will start a precert on this patient. I will update patient and her family. Addendum entered by [facility] 02/18/22 10:08: Patient is agreeable to placement at [facility] or [facility] (in this order). [facility] stated that she does have a female bed available at this time. Patient information has been faxed. Addendum entered by [facility] 02/17/22 14:03: PT/OT has recommended placement at this time. I have attempted to speak with patient twice at this time: patient is undecided about placement. Patient stated that she would need to speak with her family prior to making any decisions. Patient stated that some of her family would be here soon and other family members she will call. I have asked patient's nurse to please call me when they arrive. Discharge date is unknown at this time. Original Note: I spoke with this patient regarding plans once medically stable for discharge. PT/OT evaluated this patient and recommended home health services at time of discharge. Patient is agreeable to home health services and prefers to use [facility]. I will set this up at time of discharge. Discharge date is unknown at this time.
--- NOTE | 2022-02-12 16:24 | PC.NURSE ---
PT IS RESTING IN BED. TOLERATED SITTING UP IN THE CHAIR FOR PHYSICAL THERAPY. MEDICATED PER MAR FOR BACK AND RIB DISCOMFORT. LUNG SOUNDS DIMINISHED WITH SCATTERED WHEEZES/RHONCHI. ABDOMEN SOFT/NON TENDER WITH ACTIVE BOWEL SOUNDS. O2 SATURATION 90-92% ON 3 L NC. AMBULATES WITH WALKER AND STANDBY ASSIST. WILL CONTINUE TO MONITOR.
[2022-02-13] VITALS (13 sets, daily range): BP systolic 116–155; BP diastolic 67–81; PULSE 80–123; RESP 20–44; TEMP 36.5–36.9; O2SAT 84–91; BMI 27.3; BMI 27.1
--- NOTE | 2022-02-13 04:50 | PC.NURSE ---
Pt has c/o pain in right rib cage area 1x t/o shift. PRN pain medication administered, pt states favorable results. Pt sat 89% on 4 L nc and pt states she felt somewhat SOA. Pt titrated up to 5 L nc, tolerating well with sats >90%. Call light within reach.
[2022-02-13 08:22] LABS: Basophils # 0.1 K/mm3 (0-0.2); Basophils % 0.7 % (0.1-2.0); Eosinophils # 0.2 K/mm3 (0.0-0.4); Eosinophils % 0.8 % (0.1-12.0); Hematocrit 47.9 % (37.0-47.0); Hemoglobin 15.1 g/dL (12.2-16.2); Lymphocytes # 2.6 K/mm3 (0.7-4.5); Lymphocytes % 12.5 % (10-50); Mean Corpuscular HGB Conc 31.5 g/dL (31.8-35.4); Mean Corpuscular Hemoglobin 32.7 pg (27.0-31.2); Mean Corpuscular Volume 103.7 fl (81-99); Monocytes # 1.2 K/mm3 (0.1-1.0); Monocytes % 5.9 % (1.7-9.3); Neutrophils # 16.7 K/mm3 (1.8-7.8); Neutrophils % 80.2 % (37.0-80.0); Platelet Count 321 K/mm3 (142-424); Red Blood Count 4.62 M/mm3 (4.20-5.40); Red Cell Distribution Width 15.3 % (11.5-17.5); White Blood Count 20.8 K/mm3 (4.8-10.8)
[2022-02-13 08:29] LABS: MANUAL DIFFERENTIAL MANUAL DIFFERENTIAL (MANUAL DIFF)
[2022-02-13 08:47] LABS: Chloride 110 mmol/L (98-107); Sodium 142 mmol/L (136-145)
[2022-02-13 08:50] LABS: Alanine Aminotransferase 27 U/L (12-78); Albumin Level 3.4 g/dl (3.5-5.0); Albumin/Globulin Ratio 1.4 (1.1-1.8); Alkaline Phosphatase 91 U/L (38-126); Aspartate Amino Transferase 46 U/L (14-36); Bilirubin,Total 0.6 mg/dl (0.2-1.3); Blood Urea Nitrogen 23 mg/dl (7-17); Calcium 9.8 mg/dl (8.4-10.2); Carbon Dioxide 24 mmol/L (22.0-30.0); Creatinine Clearance Estimated 56 mL/min (50-200); Estimated Glomerular Filt Rate 83 ml/min (>60); GFR (African American) 100 ML/MIN (>60); Globulin 2.5 g/dL (1.3-3.2); Glucose 99 mg/dl (74-100); Total Protein,Serum 5.9 g/dl (6.3-8.2)
--- NOTE | 2022-02-13 08:58 | CT_ITS ---
FINAL REPORT CLINICAL HISTORY: frequent falls FINDINGS: Axial images of the head were obtained without contrast. Coronal reformatted images were also obtained. This study was performed with techniques to keep radiation doses as low as reasonably achievable (ALARA). Individualized dose reduction techniques using automated exposure control or adjustment of mA and/or kV according to the patient''s size were employed. There are postoperative changes of left temporal craniotomy with left-sided aneurysmal clipping. There is encephalomalacia in the left cerebral hemisphere. There is generalized age-appropriate atrophy. Periventricular low-attenuation areas are seen consistent with mild chronic ischemic changes. There is no evidence of intracranial hemorrhage or mass. There is no evidence of acute infarct. There is no evidence of shift of the midline structures. No skull abnormality is seen on the bone window images. IMPRESSION: Atrophy and mild periventricular chronic ischemic changes. No acute intracranial abnormality identified. Reviewed, Interpreted and Dictated by David Amador III, MD Transcribed by Halie Reeder Authenticated and [facility]
--- NOTE | 2022-02-13 09:50 | EXP.PULM.PN ---
Subjective *Date: 02/13/22 *Time: 13:32 Interval history: Worsening respiratory status needing increasing oxygen requirements and transferred to stepdown. Pulmonology Exam Inpatient Vital signs and Labs for Last 24 Hours: Temp Pulse Resp BP Pulse Ox 98.0 F 121 H 20 155/79 H 84 L 02/13/22 08:00 02/13/22 09:20 02/13/22 08:00 02/13/22 08:00 02/13/22 08:00 Laboratory Results - last 24 hr 02/13/22 07:47: WBC 20.8 H*, RBC 4.62, Hgb 15.1, Hct 47.9 H, MCV 103.7 H, MCH 32.7 H, MCHC 31.5 L, RDW 15.3, Plt Count 321, MPV 9.0, Neut % (Auto) 80.2 H, Lymph % (Auto) 12.5, Kern % (Auto) 5.9, Eos % (Auto) 0.8, Baso % (Auto) 0.7, Neut # (Auto) 16.7 H, Lymph # (Auto) 2.6, Kern # (Auto) 1.2 H, Eos # (Auto) 0.2, Baso # (Auto) 0.1 02/13/22 07:47: Sodium 142, Potassium 5.0 D, Chloride 110 H, Carbon Dioxide 24, Anion Gap 13.0, BUN 23 H, Creatinine 0.70 D, Estimated Creat Clear 56, Estimated GFR 83, Est GFR ( Amer) 100 D, Glucose 99, Calcium 9.8, Total Bilirubin 0.6, AST 46 H D, ALT 27, Alkaline Phosphatase 91, Total Protein 5.9 L, Albumin 3.4 L D, Globulin 2.5, Albumin/Globulin Ratio 1.4 I & O for Labs for Last 24 Hours: Intake & Output 02/10/22 02/11/22 02/12/22 02/13/22 23:59 23:59 23:59 23:59 Intake Total 600 / 600 Output Total 450 / 450 0 / 0 Balance 150 / 150 0 / 0 Weight 156 lb 149 lb 6.4 oz 148 lb 4 oz Microbiology Reports for the Last 24 Hours: Microbiology 02/12/22 00:33 Sputum - Expectorated Sputum Gram Stain - Final Constitutional: Present severe distress Head: Present normocephalic and atraumatic ENT: Present normal exam, normal oropharynx and mucous membranes moist Neck: Present normal inspection and full ROM Respiratory: Present wheezes, diminished air movement and able to speak in complete sentences Cardiac: Present S1/S2, Tachycardia and radial pulses present; Absent Reg Rate and Rhythm GI: Present soft and distention; Absent tenderness or guarding Rectal (female): Present deferred (female): Present deferred Skin: Present intact; Absent cyanosis or jaundice Neuro: Present alert, awake and oriented x 3 Extremities: Present normal inspection; Absent clubbing or cyanosis Psychiatric: Present normal affect and cooperative Assessment and Plan *Assessment and plan (1) COPD exacerbation: Status: Acute Category: Medical Code(s): J44.1 - Chronic obstructive pulmonary disease with (acute) exacerbation Plan #COPD Exacerbation: 71 history of COPD on long-term oxygen therapy and heart failure reduced EF (35%, July 2021), hypertension, hypothyroidism, h/o colon cancer s/p resection presented with worsening shortness of breath for the last 7 days and increasing falls. On Home Oxygen. Labs and ABG on admission personally reviewed, significant leukocytosis 38 currently 21.3, neutrophilic predominant. ABG on admission did not show any evidence of hypercarbic respiratory failure, pH is 7.46 PCO2 30.5 and PO2 of 66. Patient was initiated on doxycycline along with methylprednisolone 40 every 12 hours nebulization therapies. CTA from admission personally reviewed, No evidenc eof Pulmonary embolism, no suspicious pulmonary nodules amendable for Biopsy noted. Questionalble 3mm nodules ,NO significant mediastinal and hilar lymphadenopathy noted. Focal atelectasis noted. Centrilobular emphysema. Only mild calcified hilar adenopathy appreciated not significant CT abdomen reported to have concerning adnexal lesions - managemnt as per primary team Patient admits significant family history of tuberculosis exposure. She admits getting treated for TB before. No concerning lesions noted on her CT chest patient denies any productive cough at this point of time. We will discontinue isolation at this point of time. Interval update: Leucocytosis status stable, no significant improvement, 20.8. Afebrile, Tachycardia. Continue to receive doxycycline prednisone and nebs for COPD exacerbation. Increasing oxygen re
--- NOTE | 2022-02-13 09:52 | XR_ITS ---
FINAL REPORT TECHNIQUE: Single view chest CLINICAL HISTORY: Hypoxia COMPARISON: 02/12/2022 FINDINGS: A single view of the chest was obtained. The heart is enlarged. There is a left subclavian ICD in place. There is pulmonary vascular congestion. There are low lung volumes with mild atelectasis. There is no pneumothorax. Osseous structures are unremarkable. IMPRESSION: Low lung volumes with atelectasis. Reviewed, Interpreted and Dictated by David Amador III, MD Transcribed by Halie Reeder Authenticated and [facility]
[2022-02-13 10:02] LABS: Lymphocytes % 14 % (10-50); Monocytes % 7 % (2-9); Neutrophils % 79 % (42-76); Total Cells Counted 100
[2022-02-13 10:03] LABS: Macrocytosis 1+; Platelet Estimate Normal
--- NOTE | 2022-02-13 10:12 | ECG_ITS ---
APPROVED REPORT Exam: Resting ECG HR:94 bpm ECG Measurements Heart Rate 94 AXES UT 142 P 35 QRSd 99 QRS 1 QT 364 T 2 QTc 416 Conclusion SINUS RHYTHM LEFT VENTRICULAR HYPERTROPHY AND ST-T CHANGE [VOLTAGE CRITERIA PLUS ST/T ABNORMALITY] ABNORMAL ECG UNCONFIRMED REPORT Electronically signed by : Justin Damian MD 02/14/2022 16:49:46
--- NOTE | 2022-02-13 11:41 | PC.NURSE ---
Pt assessed at 1056 when moved to stepdown. pt lung sounds are diminished throughout with exp wheezes noted throughout. bowel sounds are active. pt in tachypneic. no edema noted in extremeties.
--- NOTE | 2022-02-13 11:49 | PC.NURSE ---
THIS MORNING PT'S O2 SATURATION WAS 78%. UPON ARRIVAL TO THE ROOM PT WAS SITTING UP ON THE SOB OBVIOUSLY IN DISTRESS. STAFF POSITIONED PT IN THE BED. O2 SATURATION WAS BACK IN THE 80'S. AUDIBLE WHEEZING NOTED. POOR AIR MOVEMENT. NOTIFIED . BREATHING TREATMENT ORDERED. PT DID NOT COMPLETE THE FIRST BREATHING TREATMENT THIS MORNING. DURING ROUNDS WITH PT WAS HAVING A VERY DIFFICULT TIME WITH TAKING HER MEDICATIONS AND BEING ABLE TO SPEAK IN COMPLETE SENTENCES. PT WAS COMPLAINING OF SEVERE LEFT SIDED RIB PAIN. MEDICATED PER MAR FOR DISCOMFORT AND PT STATED SHE WAS WILLING TO TRY ANOTHER BREATHING TREATMENT. 1 HOUR AFTER PAIN MEDICATION PT WENT DOWN FOR CT AND WAS LESS RESTLESS. O2 SATURATION WAS 98% ON 6 L. O2 TITRATED TO 4 L SATURATION 92-94%. ORDERED FOR PT TO HAVE A 500 ML IVF BOLUS AND HE WANTED PT TRANSFERRED TO STEP DOWN FOR CLOSER MONITORING. REPORT HAND OFF TO CHRISTIANE CHOE RN.
--- NOTE | 2022-02-13 17:33 | PC.NURSE ---
report given to ifrah milton [id number]
--- NOTE | 2022-02-13 18:09 | EXP.ACUTE.PN ---
Subjective *Date: 02/13/22 *Time: 12:09 Interval history: Worsening respiratory status needing increasing oxygen requirements and transferred to stepdown. Appears more short of breath on exam this morning. Denies nausea, vomiting. Denies any chest pain. Very anxious on morning exam. Medical Exam Vital signs and Labs for Last 24 Hours: Vital Signs Temp Pulse Pulse Resp BP Pulse Ox 02/13/22 16:00 100 H 02/13/22 12:00 80 02/13/22 15:49 97.7 F 02/13/22 11:38 97.9 F 02/13/22 09:20 121 H 02/13/22 09:20 123 H 02/13/22 08:00 98.0 F 104 H 20 155/79 H 84 L 02/13/22 07:58 82 02/13/22 07:58 89 02/13/22 07:58 89 L 02/13/22 04:00 98.1 F 89 20 116/81 91 L 02/13/22 00:00 90 L 02/12/22 22:10 91 L 02/12/22 22:09 89 L 02/12/22 20:00 104 H 90 L 02/12/22 19:48 98.4 F 104 H 20 111/64 90 L 02/12/22 19:33 91 L Intake and Output 02/13/22 02/13/22 02/13/22 07:59 15:59 23:59 Intake Total 240 / 480 240 / 480 Output Total 0 / 600 200 / 600 400 / 600 Balance 0 / -120 40 / -120 -160 / -120 Intake: Intake, Oral Amount 240 / 480 240 / 480 Output: Output, Urine Amount 0 / 600 200 / 600 400 / 600 Other: Number of Unmeasured Voids 1 Weight 67.245 kg 67 kg Patient Weight 02/13/22 23:59 Weight 67 kg Laboratory Results - last 24 hr 02/13/22 07:47: WBC 20.8 H*, RBC 4.62, Hgb 15.1, Hct 47.9 H, MCV 103.7 H, MCH 32.7 H, MCHC 31.5 L, RDW 15.3, Plt Count 321, MPV 9.0, Neut % (Auto) 80.2 H, Lymph % (Auto) 12.5, [place] % (Auto) 5.9, Eos % (Auto) 0.8, Baso % (Auto) 0.7, Neut # (Auto) 16.7 H, Lymph # (Auto) 2.6, [place] # (Auto) 1.2 H, Eos # (Auto) 0.2, Baso # (Auto) 0.1, Total Counted 100, Neutrophils % (Manual) 79 H, Lymphocytes % (Manual) 14, Monocytes % (Manual) 7, Platelet Estimate Normal, Macrocytosis 1+ 02/13/22 07:47: Sodium 142, Potassium 5.0 D, Chloride 110 H, Carbon Dioxide 24, Anion Gap 13.0, BUN 23 H, Creatinine 0.70 D, Estimated Creat Clear 56, Estimated GFR 83, Est GFR ( Amer) 100 D, Glucose 99, Calcium 9.8, Total Bilirubin 0.6, AST 46 H D, ALT 27, Alkaline Phosphatase 91, Total Protein 5.9 L, Albumin 3.4 L D, Globulin 2.5, Albumin/Globulin Ratio 1.4 I & O for Labs for Last 24 Hours: Intake & Output 02/10/22 02/11/22 02/12/22 02/13/22 23:59 23:59 23:59 23:59 Intake Total 600 / 600 480 / 480 Output Total 450 / 450 600 / 600 Balance 150 / 150 -120 / -120 Weight 70.76 kg 67.767 kg 67 kg Microbiology Reports for the Last 24 Hours: Microbiology 02/12/22 00:33 Sputum - Expectorated Sputum Gram Stain - Final 02/12/22 00:33 Sputum - Expectorated Sputum Sputum Culture - Preliminary Constitutional: Present mild distress, average body habitus, chronically ill appearing and cooperative Head: Present atraumatic and normocephalic ENT: Present normal exam Neck: Present normal inspection Respiratory: Present accessory muscle use, rhonchi, wheezes, crackles and diminished air movement Cardiac: Present Regular Rhythm and Tachycardia GI: Present soft and normal bowel sounds; Absent distention or tenderness Extremities: Present normal inspection and full ROM Skin: Present intact; Absent erythema Neuro: Present Grossly Intact, alert, awake, oriented x 3 and moves all extremities Comment:: anxious Assessment and Plan *Assessment and plan (1) Respiratory failure with hypoxia: Status: Acute Category: Medical Code(s): J96.91 - Respiratory failure, unspecified with hypoxia (2) COPD exacerbation: Status: Acute Category: Medical Code(s): J44.1 - Chronic obstructive pulmonary disease with (acute) exacerbation (3) Falls: Status: Acute Category: Medical Code(s): W19.XXXA - Unspecified fall, initial encounter (4) Ribs, multiple fractures: Status: Acute Category: Medical Code(s): S22.49XA - Multiple fractures of r
[2022-02-13 22:42] LABS: POC Glucose,Bedside 98 (70-110)
--- NOTE | 2022-02-13 22:47 | PC.NURSE ---
got pt up to bsc to void, pt gets very winded and anxious very quickly, pt's oxygen saturations dropped while up, increased oxygen to 6LNC while pt up, got pt back to bed and oxygen saturations 94-96% so decreased oxygen to 4LNC, pt still very tachypneic, RN encouraged slow deep breaths in through the nose and out through the mouth, pt attempting to do so but very anxious, pt with loose cough but not productive, breath sounds are clear to diminished
[2022-02-14] VITALS (16 sets, daily range): BP systolic 86–143; BP diastolic 57–89; PULSE 85–122; RESP 17–36; TEMP 36.5–36.7; O2SAT 84–98; BMI 24.9
--- NOTE | 2022-02-14 02:35 | PC.NURSE ---
pt's purewick had some leakage and pt had to get up to use bsc, pt had panic attack while on bsc and had to increase oxygen to 6LNC and help calm pt down, got pt back to bed but oxygen still staying lower than before so keeping pt on 6LNC and oxygen saturations are 92%
[2022-02-14 05:25] LABS: POC Glucose,Bedside 94 (70-110)
--- NOTE | 2022-02-14 05:26 | PC.NURSE ---
this RN and house attempted to start another IV as pt's Right IV not flushing and arm seems swollen and hard, but pt refusing new IV to be started until less anxious and breathing better, notified ANUJM Tucker of pt's anxiety and need to start new IV, SUPERVISOR [employer]S to order buspar
--- NOTE | 2022-02-14 05:40 | PC.NURSE ---
Regina from lab attempted to draw pt's morning labs, pt refused and told pipeline technician not right now I've gotta calm down first
--- NOTE | 2022-02-14 05:51 | PC.NURSE ---
notified RT that pt's oxygen saturations on 6LNC are 80-85% as pt is extremely anxious, RT stated would come up and try the venti mask on pt
--- NOTE | 2022-02-14 06:14 | PC.NURSE ---
pt in a lot of pain and still anxious, sat pt up on side of bed, SMOKED MEAT PREPARER rounding at bedside, asked SMOKED MEAT PREPARER if could give pain medication a little early (it's due at 0700) and SMOKED MEAT PREPARER stated okay to give early
[2022-02-14 06:30] LABS: ABG Base Excess -2.5 mmol/L (-2.4-2.3); ABG HCO3 21.6 mmhg (22.0-26.0); ABG Oxygen Saturation 87 % (90-100); ABG PCO2 32.3 mmhg (35.0-45.0); ABG PH 7.44 mmol/L (7.35-7.45); ABG TCO2 22.6 mmhg (23-27)
[2022-02-14 06:33] LABS: Allen's Test ACCEPTABLE; Oxygen 50% %; Source R RADIAL
[2022-02-14 06:34] LABS: ABG PO2 47.5 mmhg (80-100)
--- NOTE | 2022-02-14 06:57 | PC.NURSE ---
assisted pt to lay back in bed, pt still anxious; pt's oxygen saturations on 50% venti mask 84-87%, HR going up as well, HR high 120's, placing 100% NRB on pt at this time
[2022-02-14 08:22] LABS: Basophils # 0.1 K/mm3 (0-0.2); Basophils % 0.4 % (0.1-2.0); Eosinophils # 0.2 K/mm3 (0.0-0.4); Eosinophils % 1.2 % (0.1-12.0); Hematocrit 49.5 % (37.0-47.0); Hemoglobin 15.4 g/dL (12.2-16.2); Lymphocytes # 1.5 K/mm3 (0.7-4.5); Lymphocytes % 7.5 % (10-50); Mean Corpuscular Hemoglobin 32.9 pg (27.0-31.2); Mean Corpuscular Volume 106.3 fl (81-99); Mean Platelet Volume 7.9 fl (7.4-10.4); Monocytes # 1.5 K/mm3 (0.1-1.0); Monocytes % 7.2 % (1.7-9.3); Neutrophils # 17.1 K/mm3 (1.8-7.8); Neutrophils % 83.8 % (37.0-80.0); Platelet Count 284 K/mm3 (142-424); Red Blood Count 4.66 M/mm3 (4.20-5.40); Red Cell Distribution Width 15.1 % (11.5-17.5); White Blood Count 20.4 K/mm3 (4.8-10.8)
[2022-02-14 08:25] LABS: MANUAL DIFFERENTIAL MANUAL DIFFERENTIAL (MANUAL DIFF)
[2022-02-14 08:40] LABS: Chloride 107 mmol/L (98-107); Potassium 5.1 mmoL/L (3.5-5.1); Sodium 136 mmol/L (136-145)
[2022-02-14 08:42] LABS: Blood Urea Nitrogen 18 mg/dl (7-17); Creatinine Clearance Estimated 51 mL/min (50-200); Estimated Glomerular Filt Rate 83 ml/min (>60); GFR (African American) 100 ML/MIN (>60)
[2022-02-14 08:43] LABS: Alanine Aminotransferase 25 U/L (12-78); Albumin Level 3.3 g/dl (3.5-5.0); Albumin/Globulin Ratio 1.2 (1.1-1.8); Alkaline Phosphatase 81 U/L (38-126); Anion Gap 12.1 mEq/L (5-15); Aspartate Amino Transferase 58 U/L (14-36); Bilirubin,Total 0.7 mg/dl (0.2-1.3); Calcium 9.5 mg/dl (8.4-10.2); Carbon Dioxide 22 mmol/L (22.0-30.0); Globulin 2.7 g/dL (1.3-3.2); Glucose 115 mg/dl (74-100)
[2022-02-14 08:44] LABS: Magnesium 1.9 mg/dl (1.6-2.3)
[2022-02-14 10:38] LABS: Lymphocytes % 11 % (10-50); Monocytes % 1 % (2-9); Neutrophils % 88 % (42-76); Total Cells Counted 100
[2022-02-14 10:39] LABS: Macrocytosis 2+; Platelet Estimate Normal
--- NOTE | 2022-02-14 13:01 | CA_ITS ---
APPROVED REPORT EXAM: Comprehensive 2D, Doppler, and color-flow Echocardiogram Assembler Knife: She Boyer CRT Ht: 5 ft 1 in Wt: 135lbs BSA: 1.60 BP: 155/79 mmHg Indications: Congestive Heart Failure, COPD, Shortness of Breath, Hypertension/HDD, HOME O2, AICD flat on back up in bed. TDE 2D Dimensions LVOT 1.90 cm (M/F) 1.5-2.5 M-Mode Dimensions RVDd 2.93 cm (0.9-2.6) LA Diam 2.99 cm (1.9-4.0) LVDd 5.20 cm (3.5-5.7) Ao Diam 3.83 cm (2.0-3.7) LVDs 4.86 cm (3.5-5.7) IVSd 1.59 cm (0.6-1.1) PWd 0.78 cm (0.6-1.1) EF (Teich) 14.50% FS 6.50% EDV (Teich) 129.50 mL TAPSE 2.38 (<1.7) ESV (Teich) 110.70 mL LV Diastology E Decel Time 130.00 (160-240 msec) E/A Ratio 10.02 LAT A' 13.00 cm/s Aortic Valve AO Peak GR. 7.90 mmHg Mitral Valve MV E Max Percy. 112.00 (40-130 cm/s) MV A Velocity 11.00 (40-130 cm/s) E/A Ratio 10.02 MV Decel. Time 130.00 (160-240 ms) MV PHT 38.00 ms Tricuspid Valve TR P. Velocity 296.00 cm/s RAP Estimate 10.00 mmHg RVSP 45.00 mmHg Left Ventricle Left atrium is mildly enlarged, left ventricle is normal size mild concentric left ventricular hypertrophy, estimated ejection fraction 50%, there is abnormal septal motion, there is no regional wall motion abnormality, diastolic parameters are inconclusive in the study. Right Ventricle Right atrium and right ventricle are mildly enlarged with normal contractility, and AICD leads in the right ventricle. Aortic Valve Aortic valve is minimally thickened and fibrosed there is no aortic stenosis aortic insufficiency. Mitral Valve Mitral valve leaflets are minimally thickened, there is trace mitral regurgitation. Tricuspid Valve Tricuspid valve grossly normal, there is trace tricuspid regurgitation, tricuspid regurgitation jet velocity is inadequate for calculation of the right ventricular systolic pressure. Pulmonic Valve Pulmonic valve is poorly visualized. Great Vessels Aortic root is normal size. Inferior vena cava is poorly visualized. Pericardium No significant pericardial effusion. Conclusion 1. Mild biatrial enlargement, normal left ventricular size, mild concentric left ventricular hypertrophy, estimated ejection fraction 50%, there is abnormal septal motion, there is no obvious regional wall motion abnormality, diastolic parameters are inconclusive. 2. Mildly enlarged right ventricle with normal contractility. 3. Trace mitral and tricuspid regurgitation. 4. No significant pericardial effusion noted. 5. Inferior vena cava is poorly visualized. Electronically signed by : Uriel Powers MD 02/15/2022 07:21:51
[2022-02-14 14:12] LABS: Microscopic, Urine URINE MICROSCOPIC (MICROSCOPIC)
--- NOTE | 2022-02-14 15:14 | EXP.CARD.CON ---
History of Present Illness History of Present Illness Consult date: 02/14/22 Requesting physician: Juan Daniel Christensen Chief complaint: Shortness of air Additional Medical History:: Significant past medical history: COPD Chronic oxygen therapy at home HFrEF s/p AICD Colon cancer status post colon resection Chronic tobacco use Coronary artery disease Hypertension Hyperlipidemia History of present illness: 71-year-old white female with above past medical history presented to emergency department on 02/12/2022 with complaints of increased shortness of air and multiple falls at home due to generalized weakness over the past week. Work-up in ER was significant as follows: WBC 21,000, creatinine 1.2, COVID and influenza negative, CT of chest showed fractures of the left lateral 3rd, 4th and 5th ribs and left posterior 5th and 6th ribs and pulmonary nodules. CT of the abdomen and pelvis showed bilateral adnexa lesions suspicious for malignancy with minimal stranding nodules along omentum concerning for metastasis. Patient was admitted for COPD exacerbation and falls and has been managed by primary service and pulmonology receiving both antibiotics and steroids. Patient has continued to have increased oxygen requirements over the past 2 days requiring patient to be moved to stepdown. Cardiology was asked to evaluate patient today for worsening respiratory failure in the setting of CHF. On examination patient denies chest pain or lower extremity edema. She endorses worsening shortness of air over the past week. ? [facility] Disclaimer: The information contained in this section may have been updated after the patient was seen, as this information can be updated by other users. Medical History (Updated 02/12/22 @ 11:43 by Kvng Lyles MD) Abnormal electrocardiography CAD (coronary artery disease) Cardiomyopathy Chest pain COPD (chronic obstructive pulmonary disease) COPD exacerbation Dyspnea History of CVA (cerebrovascular accident) Hyperlipidemia Moderate to severe mitral regurgitation Palpitations PVCs (premature ventricular contractions) Ventricular tachycardia Social History (Updated 02/12/22 @ 02:42 by Micaela Rosales RN) Smoking Status: Current every day smoker tobacco type: cigarettes packs per day: 1 years smoked: 50 second hand exposure: No alcohol intake: never counseling provided: none substance use type: other current occupational status: retired Travel in the last 8 weeks: None household members: family housing: house current occupational exposures/hazards: No caffeine: Yes Review of Systems ENT Ears, Nose, Mouth, and Throat: Reports disequilibrium *Cardiovascular Cardiovascular: Denies chest pain and Reports dyspnea *Respiratory Respiratory: Reports dyspnea *Neurologic Neurologic: Reports system reviewed and no additional complaints, except as documented and Reports disequilibrium Exam Data for Last 24 hours Vital signs and Labs for Last 24 Hours: Temp Pulse Resp BP Pulse Ox FiO2 98.0 F 104 H 28 H 105/69 L 89 L 50 02/14/22 07:47 02/14/22 14:00 02/14/22 14:00 02/14/22 14:00 02/14/22 14:00 02/14/22 14:00 Laboratory Results - last 24 hr 02/13/22 22:26: POC Glucose 98 02/14/22 05:17: POC Glucose 94 02/14/22 06:12: Specimen Source R radial, O2 % 50%, ABG pH 7.44, ABG pCO2 32.3 L, ABG pO2 47.5 L, ABG HCO3 21.6 L, ABG Total CO2 22.6 L, ABG O2 Saturation 87 L*, ABG Base Excess -2.5 L, Jarvis Test Acceptable 02/14/22 08:15: WBC 20.4 H*, RBC 4.66, Hgb 15.4, Hct 49.5 H, MCV 106.3 H, MCH 32.9 H, MCHC 31.0 L, RDW 15.1, Plt Count 284, MPV 7.9, Neut % (Auto) 83.8 H, Lymph % (Auto) 7.5 L, [place] % (Auto) 7.2, Eos % (Auto) 1.2, Baso % (Auto) 0.4, Neut # (Auto) 17.1 H, Lymph # (Auto) 1.5, [place] # (Auto) 1.5 H, Eos # (Auto) 0.2, Baso # (Auto) 0.1, Total Counted 100, Neutrophils % (Manual) 88 H, Lymphocytes % (Manual) 11, Monocytes % (Manual) 1 L, Platelet Estimate Normal, Macrocytosis 2+
[2022-02-14 15:47] LABS: Appearance,Urine CLEAR (Clear); Bilirubin,Urine Negative (Negative); Blood, Urine TRACE-I (Negative); Color,Urine YELLOW (Yellow); Glucose,Urine (UA) 2+ (Negative); Ketones,Urine Negative (Negative); Leukocyte Esterase,Urine TRACE (Negative); Nitrate,Urine POSITIVE (Negative); PH,Urine 7.5 (5.0-8.5); Protein,Urine TRACE (Negative); Specific Gravity, Urine 1.015 (1.005-1.030)
[2022-02-14 16:06] LABS: Bacteria,Urine 2+ /lpf
--- NOTE | 2022-02-14 17:23 | EXP.ACUTE.PN ---
Subjective *Date: 02/14/22 *Time: 12:17 Interval history: Patient has had worsening respiratory distress. Remains dyspneic today. Significant anxiety on exam. Continues to be tachycardic and tachypneic. Has improved marginally this morning with IV fluids. Trialed alprazolam for anxiety, helped significantly. Patient has been able to calm and relaxed through the day. Denies nausea, chest pain/anginal pain other than baseline rib pain from fractures. Has remained in sinus rhythm on telemetry. Afebrile. Normotensive. Family at bedside. Updated on prognosis and plan. Medical Exam Vital signs and Labs for Last 24 Hours: Vital Signs Temp Pulse Pulse Pulse Resp BP Pulse Ox 02/14/22 16:56 97.9 F 02/14/22 16:00 90 02/14/22 16:00 94 H 24 101/61 L 90 L 02/14/22 16:00 90 L 02/14/22 15:29 96 H 91 L 02/14/22 08:00 103 H 94 L 02/14/22 08:00 94 L 02/14/22 08:00 100 H 02/14/22 14:00 104 H 28 H 105/69 L 89 L 02/14/22 12:00 93 H 30 H 133/70 92 L 02/14/22 10:29 105 H 32 H 135/61 91 L 02/14/22 08:00 103 H 28 H 143/62 H 94 L 02/14/22 12:00 90 02/14/22 07:47 98.0 F 02/14/22 06:47 90 L 02/14/22 06:00 122 H 32 H 125/81 84 L 02/14/22 04:00 97.8 F 02/14/22 04:00 92 H 36 H 140/74 88 L 02/14/22 04:00 93 H 02/14/22 02:00 92 L 02/14/22 00:00 85 02/13/22 20:00 105 H 02/14/22 02:00 89 17 133/89 92 L 02/14/22 00:00 89 20 116/69 98 02/14/22 00:00 96 02/14/22 00:00 97.7 F 02/13/22 23:36 98 H 02/13/22 23:36 100 H 02/13/22 22:00 97 H 44 H 123/69 88 L 02/13/22 20:00 100 H 34 H 116/67 89 L 02/13/22 20:00 98.4 F 02/13/22 18:10 106 H 02/13/22 18:10 104 H FiO2 02/14/22 16:56 02/14/22 16:00 02/14/22 16:00 02/14/22 16:00 50 02/14/22 15:29 50 02/14/22 08:00 02/14/22 08:00 100 02/14/22 08:00 02/14/22 14:00 50 02/14/22 12:00 50 02/14/22 10:29 100 02/14/22 08:00 100 02/14/22 12:00 02/14/22 07:47 02/14/22 06:47 50 02/14/22 06:00 50 02/14/22 04:00 02/14/22 04:00 02/14/22 04:00 02/14/22 02:00 02/14/22 00:00 02/13/22 20:00 02/14/22 02:00 02/14/22 00:00 02/14/22 00:00 02/14/22 00:00 02/13/22 23:36 02/13/22 23:36 02/13/22 22:00 02/13/22 20:00 02/13/22 20:00 02/13/22 18:10 02/13/22 18:10 Intake and Output 02/14/22 02/14/22 02/14/22 07:59 15:59 23:59 Intake Total 60 / 180 120 / 180 Output Total 250 / 850 400 / 850 200 / 850 Balance -190 / -670 -280 / -670 -200 / -670 Intake: Intake, Oral Amount 60 / 180 120 / 180 Output: Output, Urine Amount 250 / 850 400 / 850 200 / 850 Other: Number of Voids 1 Number of Unmeasured Voids 1 0 0 Weight 61.462 kg Patient Weight 02/14/22 23:59 Weight 61.462 kg Laboratory Results - last 24 hr 02/13/22 22:26: POC Glucose 98 02/14/22 05:17: POC Glucose 94 02/14/22 06:12: Specimen Source R radial, O2 % 50%, ABG pH 7.44, ABG pCO2 32.3 L, ABG pO2 47.5 L, ABG HCO3 21.6 L, ABG Total CO2 22.6 L, ABG O2 Saturation 87 L*, ABG Base Excess -2.5 L, Jarvis Test Acceptable 02/14/22 08:15: WBC 20.4 H*, RBC 4.66, Hgb 15.4, Hct 49.5 H, MCV 106.3 H, MCH 32.9 H, MCHC 31.0 L, RDW 15.1, Plt Count 284, MPV 7.9, Neut % (Auto) 83.8 H, Lymph % (Auto) 7.5 L, [place] % (Auto) 7.2, Eos % (Auto) 1.2, Baso % (Auto) 0.4, Neut # (Auto) 17.1 H, Lymph # (Auto) 1.5, [place] # (Auto) 1.5 H, Eos # (Auto) 0.2, Baso # (Auto) 0.1, Total Counted 100, Neutrophils % (Manual) 88 H, Lymphocytes % (Manual) 11, Monocytes % (Manual) 1 L, Platelet Estimate Normal, Macrocytosis 2+ 02/14/22 08:15: Sodium 136, Potassium 5.1, Chloride 107, Carbon Dioxide 22, Anion Gap 12.1, BUN 18 H, Creatinine 0.70, Estimated Creat Clear 51, Estimated GFR 83, Est GFR ( Amer) 100, Glucose 115 H, Calcium 9.5, Magnesium 1.9, Total Main
--- NOTE | 2022-02-14 18:56 | PC.NURSE ---
1625 Dr Christensen present during med pass of new meds. stated to hold avapro a time of admin of bumex and monitor bp. may give later if pt bp tolerates. avapro admin at 1754 pt bp 141/78
[2022-02-15] VITALS (22 sets, daily range): BP systolic 86–134; BP diastolic 31–69; PULSE 90–105; RESP 14–40; TEMP 36.6–37; O2SAT 89–94; BMI 27.4
[2022-02-15 00:07] LABS: QuantiFERON-TB Gold Plus Negative (Negative)
--- NOTE | 2022-02-15 07:00 | XR_ITS ---
PROCEDURE INFORMATION: Exam: XR Chest Exam date and time: 02/15/2022 8:22 AM Age: 71 years old Clinical indication: Shortness of breath; Additional info: Increased dyspnea TECHNIQUE: Imaging protocol: Radiologic exam of the chest. Views: 1 view. COMPARISON: CR XR CHEST PORTABLE 02/13/2022 10:17 AM FINDINGS: Tubes, catheters and devices: Transvenous pacemaker leads in the heart Lungs: Unremarkable. No consolidation. Pleural spaces: Unremarkable. No pleural effusion. No pneumothorax. Heart/Mediastinum: Unremarkable. No cardiomegaly. Bones/joints: Unremarkable. IMPRESSION: No acute process
[2022-02-15 07:14] LABS: Chloride 104 mmol/L (98-107); Potassium 4.3 mmoL/L (3.5-5.1); Sodium 138 mmol/L (136-145)
[2022-02-15 07:16] LABS: Alanine Aminotransferase 23 U/L (12-78); Aspartate Amino Transferase 28 U/L (14-36); Blood Urea Nitrogen 23 mg/dl (7-17); Creatinine Clearance Estimated 56 mL/min (50-200); Estimated Glomerular Filt Rate 62 ml/min (>60); GFR (African American) 75 ML/MIN (>60)
[2022-02-15 07:17] LABS: Albumin Level 3.1 g/dl (3.5-5.0); Albumin/Globulin Ratio 1.1 (1.1-1.8); Alkaline Phosphatase 88 U/L (38-126); Anion Gap 6.3 mEq/L (5-15); Bilirubin,Total 0.3 mg/dl (0.2-1.3); Calcium 9.3 mg/dl (8.4-10.2); Carbon Dioxide 32 mmol/L (22.0-30.0); Globulin 2.7 g/dL (1.3-3.2); Glucose 82 mg/dl (74-100); Magnesium 2.3 mg/dl (1.6-2.3); Total Protein,Serum 5.8 g/dl (6.3-8.2)
[2022-02-15 07:24] LABS: Basophils # 0.1 K/mm3 (0-0.2); Basophils % 0.4 % (0.1-2.0); Eosinophils # 0.2 K/mm3 (0.0-0.4); Hematocrit 44.3 % (37.0-47.0); Hemoglobin 14.1 g/dL (12.2-16.2); Lymphocytes # 2.7 K/mm3 (0.7-4.5); Mean Corpuscular HGB Conc 31.9 g/dL (31.8-35.4); Mean Corpuscular Hemoglobin 32.7 pg (27.0-31.2); Mean Corpuscular Volume 102.5 fl (81-99); Mean Platelet Volume 8.9 fl (7.4-10.4); Monocytes # 1.1 K/mm3 (0.1-1.0); Monocytes % 7.1 % (1.7-9.3); Neutrophils # 11.7 K/mm3 (1.8-7.8); Neutrophils % 74.6 % (37.0-80.0); Platelet Count 278 K/mm3 (142-424); Red Blood Count 4.32 M/mm3 (4.20-5.40); Red Cell Distribution Width 14.9 % (11.5-17.5); White Blood Count 15.7 K/mm3 (4.8-10.8)
[2022-02-15 07:34] LABS: MANUAL DIFFERENTIAL MANUAL DIFFERENTIAL (MANUAL DIFF)
--- NOTE | 2022-02-15 08:00 | EXP.ACUTE.PN ---
Subjective *Date: 02/15/22 *Time: 12:29 Interval history: Appears more calm and less respiratory distress this morning. Responded well to diuresis. Still requiring 50% oxygen on Venti. Saturations 88 to 91% overnight. Discussed initiating Vapotherm today. Patient has been sitting at bedside eating meals. Remains afebrile. No nausea, vomiting, diarrhea, confusion. Medical Exam Vital signs and Labs for Last 24 Hours: Vital Signs Temp Pulse Pulse Pulse Resp BP Pulse Ox 02/15/22 07:50 97.9 F 02/15/22 06:00 97 H 14 99/58 L 89 L 02/15/22 04:00 97 H 24 96/59 L 89 L 02/15/22 04:00 92 H 02/15/22 04:00 98.5 F 02/15/22 02:00 91 H 17 86/51 L 90 L 02/15/22 00:00 105 H 26 H 90/57 L 90 L 02/15/22 00:00 90 L 02/14/22 20:00 111 H 02/15/22 00:00 104 H 02/15/22 00:00 98.0 F 02/14/22 22:00 109 H 34 H 91/57 L 91 L 02/14/22 20:00 111 H 33 H 86/59 L 90 L 02/14/22 20:00 97.8 F 02/14/22 18:00 117 H 26 H 121/70 90 L 02/14/22 16:56 97.9 F 02/14/22 16:00 90 02/14/22 16:00 94 H 24 101/61 L 90 L 02/14/22 16:00 90 L 02/14/22 15:29 96 H 91 L 02/14/22 14:00 104 H 28 H 105/69 L 89 L 02/14/22 12:00 93 H 30 H 133/70 92 L 02/14/22 10:29 105 H 32 H 135/61 91 L 02/14/22 12:00 90 FiO2 02/15/22 07:50 02/15/22 06:00 50 02/15/22 04:00 50 02/15/22 04:00 02/15/22 04:00 02/15/22 02:00 50 02/15/22 00:00 50 02/15/22 00:00 50 02/14/22 20:00 02/15/22 00:00 02/15/22 00:00 02/14/22 22:00 50 02/14/22 20:00 50 02/14/22 20:00 02/14/22 18:00 50 02/14/22 16:56 02/14/22 16:00 02/14/22 16:00 02/14/22 16:00 50 02/14/22 15:29 50 02/14/22 14:00 50 02/14/22 12:00 50 02/14/22 10:29 100 02/14/22 12:00 Intake and Output 02/14/22 02/15/22 02/15/22 23:59 07:59 15:59 Intake Total 240 / 420 Output Total 2400 / 3250 200 / 200 Balance -2160 / -2830 -200 / -200 Intake: Intake, Oral Amount 240 / 420 Output: Output, Urine Amount 2400 / 3050 0 / 0 Output, Urine Amount (Catheter) 200 / 200 Self 200 / 200 Other: Number of Unmeasured Voids 0 0 Weight 67.614 kg Patient Weight 02/15/22 23:59 Weight 67.614 kg Laboratory Results - last 24 hr 02/12/22 09:34: TB Test (QFT) Nil 0.01, TB Test (QFT) Mitogen 3.95, TB Test (QFT) Ag 1 0.01, TB Test (QFT) Ag 2 0.01, TB Positive Criteria Comment, TB Test (QFT) Interp Negative 02/14/22 08:15: WBC 20.4 H*, RBC 4.66, Hgb 15.4, Hct 49.5 H, MCV 106.3 H, MCH 32.9 H, MCHC 31.0 L, RDW 15.1, Plt Count 284, MPV 7.9, Neut % (Auto) 83.8 H, Lymph % (Auto) 7.5 L, [place] % (Auto) 7.2, Eos % (Auto) 1.2, Baso % (Auto) 0.4, Neut # (Auto) 17.1 H, Lymph # (Auto) 1.5, [place] # (Auto) 1.5 H, Eos # (Auto) 0.2, Baso # (Auto) 0.1, Total Counted 100, Neutrophils % (Manual) 88 H, Lymphocytes % (Manual) 11, Monocytes % (Manual) 1 L, Platelet Estimate Normal, Macrocytosis 2+ 02/14/22 08:15: Sodium 136, Potassium 5.1, Chloride 107, Carbon Dioxide 22, Anion Gap 12.1, BUN 18 H, Creatinine 0.70, Estimated Creat Clear 51, Estimated GFR 83, Est GFR ( Amer) 100, Glucose 115 H, Calcium 9.5, Magnesium 1.9, Total Bilirubin 0.7, AST 58 H D, ALT 25, Alkaline Phosphatase 81, Total Protein 6.0 L, Albumin 3.3 L, Globulin 2.7, Albumin/Globulin Ratio 1.2 02/14/22 13:35: Urine Color Yellow, Urine Appearance Clear, Urine pH 7.5, Ur Specific [place] 1.015, Urine Protein Trace, Urine Glucose (UA) 2+, Urine Ketones Negative, Urine Blood Trace-i, Urine Nitrate Positive, Urine Bilirubin Negative, Urine Urobilinogen 1.0, Ur Leukocyte Esterase Trace, Urine RBC 3-5, Urine WBC 3-5, Ur Squamous Epith Cells 5-10, Urine Bacteria 2+ 02/15/22 07:00: WBC 15.7 H, RBC 4.32, Hgb 14.1, Hct 44.3, MCV 102.5 H, MCH 32.7 H, MCHC 31.9, RDW 14.9, Plt Count 278, MPV 8.9, Neut % (Auto) 74.6, Lymph % (Auto) 17.0, [place] % (Auto) 7.1, Eos % (Auto
[2022-02-15 09:41] LABS: Lymphocytes % 15 % (10-50); Monocytes % 7 % (2-9); Neutrophils % 78 % (42-76); Platelet Estimate Normal; Total Cells Counted 100
[2022-02-15 09:42] LABS: Anisocytosis 1+; Hypochromasia 1+; Macrocytosis 1+
--- NOTE | 2022-02-15 14:36 | EXP.PHA.PN ---
Subjective *Date: 02/15/22 *Time: 14:36 Medical Exam Vital signs and Labs for Last 24 Hours: Vital Signs Temp Pulse Pulse Resp BP Pulse Ox FiO2 02/15/22 14:00 100 H 22 134/55 L 92 L 70 02/15/22 12:21 101 H 02/15/22 12:21 97 H 02/15/22 12:21 91 L 70 02/15/22 12:00 99 H 26 H 129/69 93 L 70 02/15/22 10:00 95 H 24 101/41 L 89 L 50 02/15/22 08:00 91 L 50 02/15/22 08:00 91 L 50 02/15/22 08:00 98 H 17 106/60 L 91 L 50 02/15/22 07:50 97.9 F 02/15/22 06:00 97 H 14 99/58 L 89 L 50 02/15/22 04:00 97 H 24 96/59 L 89 L 50 02/15/22 04:00 92 H 02/15/22 04:00 98.5 F 02/15/22 02:00 91 H 17 86/51 L 90 L 50 02/15/22 00:00 105 H 26 H 90/57 L 90 L 50 02/15/22 00:00 90 L 50 02/14/22 20:00 111 H 02/15/22 00:00 104 H 02/15/22 00:00 98.0 F 02/14/22 22:00 109 H 34 H 91/57 L 91 L 50 02/14/22 20:00 111 H 33 H 86/59 L 90 L 50 02/14/22 20:00 97.8 F 02/14/22 18:00 117 H 26 H 121/70 90 L 50 02/14/22 16:56 97.9 F 02/14/22 16:00 90 02/14/22 16:00 94 H 24 101/61 L 90 L 02/14/22 16:00 90 L 50 02/14/22 15:29 96 H 91 L 50 Intake and Output 02/14/22 02/15/22 02/15/22 23:59 07:59 15:59 Intake Total 240 / 420 360 / 360 Output Total 2400 / 3250 200 / 200 0 / 200 Balance -2160 / -2830 -200 / 160 360 / 160 Intake: Intake, Oral Amount 240 / 420 360 / 360 Output: Output, Urine Amount 2400 / 3050 0 / 0 0 / 0 Output, Urine Amount (Catheter) 200 / 200 Self 200 / 200 Other: Number of Unmeasured Voids 0 0 0 Weight 67.614 kg Patient Weight 02/15/22 23:59 Weight 67.614 kg Laboratory Results - last 24 hr 02/12/22 09:34: TB Test (QFT) Nil 0.01, TB Test (QFT) Mitogen 3.95, TB Test (QFT) Ag 1 0.01, TB Test (QFT) Ag 2 0.01, TB Positive Criteria Comment, TB Test (QFT) Interp Negative 02/14/22 13:35: Urine Color Yellow, Urine Appearance Clear, Urine pH 7.5, Ur Specific [place] 1.015, Urine Protein Trace, Urine Glucose (UA) 2+, Urine Ketones Negative, Urine Blood Trace-i, Urine Nitrate Positive, Urine Bilirubin Negative, Urine Urobilinogen 1.0, Ur Leukocyte Esterase Trace, Urine RBC 3-5, Urine WBC 3-5, Ur Squamous Epith Cells 5-10, Urine Bacteria 2+ 02/15/22 07:00: WBC 15.7 H, RBC 4.32, Hgb 14.1, Hct 44.3, MCV 102.5 H, MCH 32.7 H, MCHC 31.9, RDW 14.9, Plt Count 278, MPV 8.9, Neut % (Auto) 74.6, Lymph % (Auto) 17.0, [place] % (Auto) 7.1, Eos % (Auto) 1.0, Baso % (Auto) 0.4, Neut # (Auto) 11.7 H, Lymph # (Auto) 2.7, [place] # (Auto) 1.1 H, Eos # (Auto) 0.2, Baso # (Auto) 0.1, Total Counted 100, Neutrophils % (Manual) 78 H, Lymphocytes % (Manual) 15, Monocytes % (Manual) 7, Platelet Estimate Normal, Hypochromasia 1+, Anisocytosis 1+, Macrocytosis 1+ 02/15/22 07:00: Sodium 138, Potassium 4.3, Chloride 104, Carbon Dioxide 32 H, Anion Gap 6.3, BUN 23 H D, Creatinine 0.90 D, Estimated Creat Clear 56, Estimated GFR 62, Est GFR ( Amer) 75 D, Glucose 82 D, Calcium 9.3, Magnesium 2.3 D, Total Bilirubin 0.3, AST 28 D, ALT 23, Alkaline Phosphatase 88, Total Protein 5.8 L, Albumin 3.1 L, Globulin 2.7, Albumin/Globulin Ratio 1.1 I & O for Labs for Last 24 Hours: Intake & Output 02/12/22 02/13/22 02/14/22 02/15/22 23:59 23:59 23:59 23:59 Intake Total 600 / 600 480 / 540 420 / 420 360 / 360 Output Total 450 / 450 1100 / 1100 3050 / 3250 200 / 200 Balance 150 / 150 -620 / -560 -2630 / -2830 160 / 160 Weight 67.767 kg 67 kg 61.462 kg 67.614 kg Microbiology Reports for the Last 24 Hours: Microbiology 02/14/22 13:35 Urine,Catheterized Urine Culture - Preliminary NO GROWTH AFTER 24 HOURS 02/12/22 00:33 Sputum - Expectorated Sputum Gram Stain - Final 02/12/22 00:33 Sputum - Expectorated Sputum Sputum Culture - Preliminary Gram Positive Cocci The patie
[2022-02-15 15:48] LABS: ABG Base Excess 1.9 mmol/L (-2.4-2.3); ABG HCO3 25.5 mmhg (22.0-26.0); ABG Oxygen Saturation 92 % (90-100); ABG PCO2 35.4 mmhg (35.0-45.0); ABG PH 7.48 mmol/L (7.35-7.45); ABG PO2 58.8 mmhg (80-100); ABG TCO2 26.6 mmhg (23-27)
[2022-02-15 15:50] LABS: Allen's Test Acceptable
[2022-02-15 15:51] LABS: Source Right Radial
[2022-02-16] VITALS (18 sets, daily range): BP systolic 90–122; BP diastolic 56–76; PULSE 81–110; RESP 12–28; TEMP 36.4–36.8; O2SAT 89–93; BMI 27.1
--- NOTE | 2022-02-16 07:32 | EXP.ACUTE.PN ---
Subjective *Date: 02/16/22 *Time: 08:30 Interval history: Stable on Vapotherm 40 L 70% overnight. Saturations fluctuating 88 to 93%. Tolerating p.o. intake. Did not get out of bed but has been getting up to bedside to eat. Encouraged to get out of bed today. Discussed removing catheter today. Has responded well to diuretics, -1 L fluid balance yesterday. Patient appears dry on exam. Denies nausea, vomiting, chest pain. Complaining of sore back and right arm pain. Hands and feet more warm today. Medical Exam Vital signs and Labs for Last 24 Hours: Vital Signs Temp Pulse Pulse Resp BP Pulse Ox FiO2 02/16/22 07:07 91 H 02/16/22 07:07 92 H 02/16/22 07:07 91 L 70 02/16/22 06:00 90 15 90/57 L 91 L 70 02/16/22 02:00 92 L 02/16/22 04:00 97.6 F 02/16/22 04:00 81 12 112/66 93 L 70 02/16/22 02:00 89 14 109/67 L 93 L 70 02/15/22 20:00 98 H 02/16/22 00:00 99 H 14 95/56 L 92 L 02/16/22 00:00 92 L 70 02/15/22 23:58 97.8 F 02/15/22 23:38 91 H 02/15/22 23:37 90 02/15/22 22:00 105 H 26 H 115/66 90 L 70 02/15/22 20:00 92 L 70 02/15/22 20:00 100 H 02/15/22 20:00 103 H 40 H 87/31 L 92 L 70 02/15/22 20:00 98.3 F 02/15/22 18:42 70 02/15/22 18:42 93 H 02/15/22 18:41 95 H 02/15/22 18:17 95 H 02/15/22 12:00 100 H 02/15/22 08:00 103 H 02/15/22 18:00 104 H 18 107/60 L 93 L 70 02/15/22 15:58 94 L 70 02/15/22 15:57 94 H 17 94/55 L 93 L 70 02/15/22 15:57 94 L 70 02/15/22 15:34 98.6 F 02/15/22 14:00 100 H 22 134/55 L 92 L 70 02/15/22 12:21 101 H 02/15/22 12:21 97 H 02/15/22 12:21 91 L 70 02/15/22 12:00 99 H 26 H 129/69 93 L 70 02/15/22 10:00 95 H 24 101/41 L 89 L 50 02/15/22 08:00 91 L 50 02/15/22 08:00 91 L 50 02/15/22 08:00 98 H 17 106/60 L 91 L 50 02/15/22 07:50 97.9 F Intake and Output 02/15/22 02/15/22 02/16/22 15:59 23:59 07:59 Intake Total 360 / 720 360 / 720 Output Total 1400 / 1800 200 / 1800 250 / 250 Balance -1040 / -1080 160 / -1080 -250 / -250 Intake: Intake, Oral Amount 360 / 720 360 / 720 Output: Output, Urine Amount 1000 / 1200 200 / 1200 250 / 250 Output, Urine Amount (Catheter) 400 / 600 0 / 600 Self 400 / 600 0 / 600 Other: Number of Unmeasured Voids 0 0 0 Weight 66.8 kg Patient Weight 02/16/22 23:59 Weight 66.8 kg Laboratory Results - last 24 hr 02/15/22 07:00: WBC 15.7 H, RBC 4.32, Hgb 14.1, Hct 44.3, MCV 102.5 H, MCH 32.7 H, MCHC 31.9, RDW 14.9, Plt Count 278, MPV 8.9, Neut % (Auto) 74.6, Lymph % (Auto) 17.0, [place] % (Auto) 7.1, Eos % (Auto) 1.0, Baso % (Auto) 0.4, Neut # (Auto) 11.7 H, Lymph # (Auto) 2.7, [place] # (Auto) 1.1 H, Eos # (Auto) 0.2, Baso # (Auto) 0.1, Total Counted 100, Neutrophils % (Manual) 78 H, Lymphocytes % (Manual) 15, Monocytes % (Manual) 7, Platelet Estimate Normal, Hypochromasia 1+, Anisocytosis 1+, Macrocytosis 1+ 02/15/22 16:00: Specimen Source Right radial, O2 % 70% 40lpm, ABG pH 7.48 H, ABG pCO2 35.4, ABG pO2 58.8 L, ABG HCO3 25.5, ABG Total CO2 26.6, ABG O2 Saturation 92, ABG Base Excess 1.9, Jarvis Test Acceptable I & O for Labs for Last 24 Hours: Intake & Output 02/13/22 02/14/22 02/15/22 02/16/22 23:59 23:59 23:59 23:59 Intake Total 480 / 540 420 / 420 720 / 720 Output Total 1100 / 1100 3050 / 3250 1800 / 1800 250 / 250 Balance -620 / -560 -2630 / -2830 -1080 / -1080 -250 / -250 Weight 67 kg 61.462 kg 67.614 kg 66.8 kg Microbiology Reports for the Last 24 Hours: Microbiology 02/14/22 13:35 Urine,Catheterized Urine Culture - Preliminary NO GROWTH AFTER 24 HOURS Constitutional: Present mild distress, average body habitus, chronically ill appearing and cooperative Head: Present atraumatic and n
[2022-02-16 10:12] LABS: Basophils # 0.1 K/mm3 (0-0.2); Basophils % 0.6 % (0.1-2.0); Eosinophils # 0.2 K/mm3 (0.0-0.4); Eosinophils % 1.2 % (0.1-12.0); Hematocrit 50.1 % (37.0-47.0); Hemoglobin 15.9 g/dL (12.2-16.2); Lymphocytes # 2.6 K/mm3 (0.7-4.5); Lymphocytes % 19.5 % (10-50); Mean Corpuscular HGB Conc 31.7 g/dL (31.8-35.4); Mean Corpuscular Hemoglobin 33.6 pg (27.0-31.2); Mean Corpuscular Volume 106.1 fl (81-99); Mean Platelet Volume 8.4 fl (7.4-10.4); Monocytes % 7.9 % (1.7-9.3); Neutrophils # 9.3 K/mm3 (1.8-7.8); Neutrophils % 70.9 % (37.0-80.0); Platelet Count 257 K/mm3 (142-424); Red Blood Count 4.72 M/mm3 (4.20-5.40); Red Cell Distribution Width 14.9 % (11.5-17.5); White Blood Count 13.1 K/mm3 (4.8-10.8)
[2022-02-16 10:31] LABS: Chloride 103 mmol/L (98-107); Potassium 4.3 mmoL/L (3.5-5.1); Sodium 138 mmol/L (136-145)
[2022-02-16 10:33] LABS: Blood Urea Nitrogen 28 mg/dl (7-17); Creatinine Clearance Estimated 55 mL/min (50-200); Estimated Glomerular Filt Rate 55 ml/min (>60); GFR (African American) 66 ML/MIN (>60)
[2022-02-16 10:34] LABS: Alanine Aminotransferase 38 U/L (12-78); Albumin Level 3.4 g/dl (3.5-5.0); Albumin/Globulin Ratio 1.1 (1.1-1.8); Alkaline Phosphatase 85 U/L (38-126); Anion Gap 9.3 mEq/L (5-15); Aspartate Amino Transferase 48 U/L (14-36); Bilirubin,Total 0.6 mg/dl (0.2-1.3); Calcium 9.4 mg/dl (8.4-10.2); Carbon Dioxide 30 mmol/L (22.0-30.0); Glucose 147 mg/dl (74-100); Magnesium 2.3 mg/dl (1.6-2.3); Total Protein,Serum 6.4 g/dl (6.3-8.2)
--- NOTE | 2022-02-16 18:03 | PC.NURSE ---
pt did get up to the chair for approximately 2 hours this shift, has sat on side of bed for meals, has had visitors t/o shift and does desat when conversing with visitors, pt encouraged to use IS t/o shift, vapotherm is at 35L/50%, sats have been 89-92%, has been tachy as shift has progressed, HR 92-107
[2022-02-17] VITALS (17 sets, daily range): BP systolic 104–155; BP diastolic 56–86; PULSE 80–103; RESP 13–22; TEMP 36.3–37.1; O2SAT 89–92; BMI 27.3
--- NOTE | 2022-02-17 05:48 | PC.NURSE ---
No acute changes noted. VS stable. Patient remained on 35L vapotherm and not able to be titrated down as oxygen saturations ranged from 88-93 during the night. Lung sounds still diminished.
[2022-02-17 05:58] LABS: Basophils # 0.1 K/mm3 (0-0.2); Basophils % 0.5 % (0.1-2.0); Eosinophils # 0.1 K/mm3 (0.0-0.4); Hematocrit 42.7 % (37.0-47.0); Hemoglobin 14.2 g/dL (12.2-16.2); Lymphocytes # 2.1 K/mm3 (0.7-4.5); Lymphocytes % 17.2 % (10-50); Mean Corpuscular HGB Conc 33.2 g/dL (31.8-35.4); Mean Corpuscular Hemoglobin 32.8 pg (27.0-31.2); Mean Corpuscular Volume 98.8 fl (81-99); Mean Platelet Volume 8.6 fl (7.4-10.4); Monocytes # 1.1 K/mm3 (0.1-1.0); Monocytes % 8.6 % (1.7-9.3); Neutrophils % 72.7 % (37.0-80.0); Platelet Count 257 K/mm3 (142-424); Red Blood Count 4.32 M/mm3 (4.20-5.40); Red Cell Distribution Width 14.6 % (11.5-17.5); White Blood Count 12.4 K/mm3 (4.8-10.8)
[2022-02-17 06:05] LABS: Chloride 108 mmol/L (98-107); Sodium 140 mmol/L (136-145)
[2022-02-17 06:06] LABS: Potassium 4.4 mmoL/L (3.5-5.1)
[2022-02-17 06:09] LABS: Anion Gap 8.4 mEq/L (5-15); Blood Urea Nitrogen 28 mg/dl (7-17); Calcium 9.2 mg/dl (8.4-10.2); Carbon Dioxide 28 mmol/L (22.0-30.0); Creatinine Clearance Estimated 56 mL/min (50-200); Estimated Glomerular Filt Rate 71 ml/min (>60); GFR (African American) 86 ML/MIN (>60)
[2022-02-17 06:10] LABS: Glucose 99 mg/dl (74-100)
--- NOTE | 2022-02-17 09:28 | EXP.CARD.PN ---
Subjective Subjective Date: 02/17/22 Time: 09:28 Principal diagnosis: Acute on chronic respiratory failure Interval history: 71-year-old white female in bed requiring oxygen by Vapotherm. Patient denies any chest pain, pressure or tightness except some pleuritic type pain from recent rib fracture either from fall or from recent coughing. Echocardiogram this admission shows improvement in her ejection fraction up to 50% (previously as low as 35%). Recommend continue both ARB and beta-bruce therapy. Exam Data for Last 24 hours Vital signs and Labs for Last 24 Hours: Temp Pulse Resp BP Pulse Ox FiO2 97.9 F 83 13 127/71 91 L 50 02/17/22 08:00 02/17/22 06:12 02/17/22 06:00 02/17/22 06:00 02/17/22 06:12 02/17/22 06:12 Laboratory Results - last 24 hr 02/16/22 10:05: WBC 13.1 H, RBC 4.72, Hgb 15.9, Hct 50.1 H, MCV 106.1 H, MCH 33.6 H, MCHC 31.7 L, RDW 14.9, Plt Count 257, MPV 8.4, Neut % (Auto) 70.9, Lymph % (Auto) 19.5, [place] % (Auto) 7.9, Eos % (Auto) 1.2, Baso % (Auto) 0.6, Neut # (Auto) 9.3 H, Lymph # (Auto) 2.6, [place] # (Auto) 1.0, Eos # (Auto) 0.2, Baso # (Auto) 0.1 02/16/22 10:05: Sodium 138, Potassium 4.3, Chloride 103, Carbon Dioxide 30, Anion Gap 9.3, BUN 28 H, Creatinine 1.00, Estimated Creat Clear 55, Estimated GFR 55 L, Est GFR ( Amer) 66, Glucose 147 H, Calcium 9.4, Magnesium 2.3, Total Bilirubin 0.6, AST 48 H D, ALT 38 D, Alkaline Phosphatase 85, Total Protein 6.4, Albumin 3.4 L, Globulin 3.0, Albumin/Globulin Ratio 1.1 02/17/22 05:46: WBC 12.4 H, RBC 4.32, Hgb 14.2 D, Hct 42.7, MCV 98.8, MCH 32.8 H, MCHC 33.2, RDW 14.6, Plt Count 257, MPV 8.6, Neut % (Auto) 72.7, Lymph % (Auto) 17.2, [place] % (Auto) 8.6, Eos % (Auto) 1.0, Baso % (Auto) 0.5, Neut # (Auto) 9.0 H, Lymph # (Auto) 2.1, [place] # (Auto) 1.1 H, Eos # (Auto) 0.1, Baso # (Auto) 0.1 02/17/22 05:46: Sodium 140, Potassium 4.4, Chloride 108 H, Carbon Dioxide 28, Anion Gap 8.4, BUN 28 H, Creatinine 0.80, Estimated Creat Clear 56, Estimated GFR 71, Est GFR ( Amer) 86 D, Glucose 99 D, Calcium 9.2 I & O for Last 24 hours: Intake & Output 02/14/22 02/15/22 02/16/22 02/17/22 11:59 11:59 11:59 11:59 Intake Total 540 / 540 360 / 360 960 / 960 840 / 840 Output Total 1550 / 1550 2800 / 2800 1950 / 2150 700 / 700 Balance -1010 / -1010 -2440 / -2440 -990 / -1190 140 / 140 Weight 135 lb 8 oz 149 lb 1 oz 147 lb 4.301 oz 148 lb 7 oz Microbiology Reports for the Last 24 Hours: Microbiology 02/11/22 22:50 Blood Blood Culture - Final NO GROWTH AFTER 5 DAYS 02/11/22 22:33 Blood Blood Culture - Final NO GROWTH AFTER 5 DAYS 02/14/22 13:35 Urine,Catheterized Urine Culture - Final NO GROWTH AFTER 48 HOURS Constitutional Constitutional: no acute distress and chronically ill appearing *Routine Respiratory Exam Respiratory: Present decreased breath sounds; Absent rhonchi or wheezes *Routine Cardiovascular Exam Cardiovascular: Present RRR and tachycardia *Routine Extremities Exam Extremities: Absent cyanosis, clubbing or edema Progress Note: A&P Assessment and plan (1) Respiratory failure with hypoxia: Status: Acute (2) COPD exacerbation: Status: Acute (3) Systolic congestive heart failure with reduced left ventricular function, NYHA class 3: Status: Chronic (4) Falls: Status: Acute (5) Ribs, multiple fractures: Status: Acute (6) Hypertension: Status: Acute (7) Hypothyroidism: Status: Acute (8) Tobacco abuse: Status: Acute (9) Automatic implantable cardioverter-defibrillator in situ: Status: Chronic Assessment and Plan Assessment and Plan for All Diagnoses:: 1. Acute on chronic hypoxic respiratory failure, defer to Hospitalist. 2. HFrEF with improvement of EF to 50% by echo this admission. Continue ARB, Lasix, spironolactone, beta-bruce and Jardiance. Good response to IV diuretics over the we
--- NOTE | 2022-02-17 09:28 | DIET.NUTRFU ---
Addendum entered by Pamela Berry, SHAHEED, LD 02/18/22 11:11: Agreed to placement today, meal intake showing some improvement with 50% at dinner and 75% of breakfast. Continues on glucerna with trays. BS controlled at 79 today and 99 yesterday. Jardiance ordered which is home regimen also, no A1c on file. She keeps high carb/candy near bedside table Original Note: RD rounded with provider today, patient still requiring high amount of oxygen and no ready for discharge. provider is encouraging placement for discharge. Meal intake is fair at 50% with glucerna ordered and she is sipping off it for extra calories and protein. She did have BM today, during rounds. Urine output good at >1000ml/day. No IVF at this time and aldactone and lasix in place. Continues on multiple vitamins for extra nutrition and jardiance for DM. Labs reviewed, hydration labs WNL. Provider encouraged her to be up in chair for meals today. Will continue to monitopr po intake and POC
--- NOTE | 2022-02-17 09:52 | XR_ITS ---
FINAL REPORT CLINICAL HISTORY: Hypoxia COMPARISON: February 15, 2022 FINDINGS: SINGLE VIEW CHEST There is a probable right-sided PICC line terminating in the axillary region. There is a left subclavian ICD. The heart size is enlarged. The mediastinum is within normal limits. There are worsening bibasilar opacities. There is no evidence of pneumothorax. The bony thorax is intact. IMPRESSION: Worsening bibasilar opacities could represent atelectasis or pneumonia. Probable right-sided PICC line terminates in the right axillary region.. Reviewed, Interpreted and Dictated by David Amador III, MD Transcribed by Misha Reed Authenticated and . [facility]
--- NOTE | 2022-02-17 10:12 | EXP.ACUTE.PN ---
Subjective *Date: 02/17/22 *Time: 10:12 Interval history: Patient stable on Vapotherm 50% today. Remains afebrile. Blood pressure improving. Echo reviewed and discussed with patient today, EF 50% male. Tolerating p.o. intake. Ambulating to bathroom. Still appears quite anxious today. Family at bedside. Patient denies chest pain, nausea, vomiting, diarrhea. Denies any confusion. Complains of chronic dyspnea Medical Exam Vital signs and Labs for Last 24 Hours: Vital Signs Temp Pulse Pulse Resp BP Pulse Ox FiO2 02/17/22 08:00 103 H 91 L 50 02/17/22 08:00 103 H 20 155/86 H 91 L 50 02/17/22 08:00 97.9 F 02/17/22 06:12 83 02/17/22 06:12 83 02/17/22 06:12 91 L 50 02/17/22 06:00 80 13 127/71 90 L 02/17/22 05:00 80 02/17/22 04:00 98.8 F 02/17/22 04:00 83 13 120/68 90 L 02/17/22 02:00 82 14 126/67 92 L 02/17/22 00:00 90 02/16/22 20:00 100 H 02/17/22 00:00 98.6 F 02/17/22 00:02 90 02/17/22 00:02 91 H 02/17/22 00:00 86 20 114/64 02/16/22 22:00 97 H 22 121/67 89 L 35 02/16/22 20:00 98.2 F 02/16/22 18:50 50 02/16/22 18:50 90 02/16/22 18:49 93 H 02/16/22 16:00 110 H 02/16/22 18:00 106 H 24 116/66 90 L 50 02/16/22 16:00 107 H 22 122/70 89 L 50 02/16/22 16:00 90 L 50 02/16/22 14:00 96 H 26 H 116/76 90 L 50 02/16/22 12:00 94 H 02/16/22 12:28 98.3 F 02/16/22 12:00 93 H 28 H 102/56 L 90 L 50 02/16/22 11:49 92 H 02/16/22 11:49 95 H 02/16/22 11:49 92 L 60 Intake and Output 02/16/22 02/17/22 02/17/22 23:59 07:59 15:59 Intake Total 240 / 720 360 / 360 Output Total 300 / 1050 0 / 0 Balance -60 / -330 360 / 360 Intake: Intake, Oral Amount 240 / 720 360 / 360 Output: Output, Urine Amount 300 / 1050 0 / 0 Other: Number of Unmeasured Voids 1 1 Weight 67.33 kg Patient Weight 02/17/22 23:59 Weight 67.33 kg Laboratory Results - last 24 hr 02/16/22 10:05: WBC 13.1 H, RBC 4.72, Hgb 15.9, Hct 50.1 H, MCV 106.1 H, MCH 33.6 H, MCHC 31.7 L, RDW 14.9, Plt Count 257, MPV 8.4, Neut % (Auto) 70.9, Lymph % (Auto) 19.5, [place] % (Auto) 7.9, Eos % (Auto) 1.2, Baso % (Auto) 0.6, Neut # (Auto) 9.3 H, Lymph # (Auto) 2.6, [place] # (Auto) 1.0, Eos # (Auto) 0.2, Baso # (Auto) 0.1 02/16/22 10:05: Sodium 138, Potassium 4.3, Chloride 103, Carbon Dioxide 30, Anion Gap 9.3, BUN 28 H, Creatinine 1.00, Estimated Creat Clear 55, Estimated GFR 55 L, Est GFR ( Amer) 66, Glucose 147 H, Calcium 9.4, Magnesium 2.3, Total Bilirubin 0.6, AST 48 H D, ALT 38 D, Alkaline Phosphatase 85, Total Protein 6.4, Albumin 3.4 L, Globulin 3.0, Albumin/Globulin Ratio 1.1 02/17/22 05:46: WBC 12.4 H, RBC 4.32, Hgb 14.2 D, Hct 42.7, MCV 98.8, MCH 32.8 H, MCHC 33.2, RDW 14.6, Plt Count 257, MPV 8.6, Neut % (Auto) 72.7, Lymph % (Auto) 17.2, [place] % (Auto) 8.6, Eos % (Auto) 1.0, Baso % (Auto) 0.5, Neut # (Auto) 9.0 H, Lymph # (Auto) 2.1, [place] # (Auto) 1.1 H, Eos # (Auto) 0.1, Baso # (Auto) 0.1 02/17/22 05:46: Sodium 140, Potassium 4.4, Chloride 108 H, Carbon Dioxide 28, Anion Gap 8.4, BUN 28 H, Creatinine 0.80, Estimated Creat Clear 56, Estimated GFR 71, Est GFR ( Amer) 86 D, Glucose 99 D, Calcium 9.2 I & O for Labs for Last 24 Hours: Intake & Output 02/14/22 02/15/22 02/16/22 02/17/22 23:59 23:59 23:59 23:59 Intake Total 420 / 420 720 / 720 720 / 720 360 / 360 Output Total 3050 / 3250 1800 / 1800 1050 / 1050 0 / 0 Balance -2630 / -2830 -1080 / -1080 -330 / -330 360 / 360 Weight 61.462 kg 67.614 kg 66.8 kg 67.33 kg Microbiology Reports for the Last 24 Hours: Microbiology 02/11/22 22:50 Blood Blood Culture - Final NO GROWTH AFTER 5 DAYS 02/11/22 22:33 Blood Blood Culture - Final NO GROWTH AFTER 5 DAYS 02/14/22 13:35
--- NOTE | 2022-02-17 11:04 | EXP.PULM.PN ---
Subjective *Date: 02/17/22 *Time: 11:04 Interval history: Patient denies any new complaints. Admits worsening productive phlegm since yesterday. Denies any chest pain. Pulmonology Exam Inpatient Vital signs and Labs for Last 24 Hours: Temp Pulse Resp BP Pulse Ox FiO2 97.9 F 91 H 16 137/85 91 L 50 02/17/22 08:00 02/17/22 10:00 02/17/22 10:00 02/17/22 10:00 02/17/22 10:00 02/17/22 10:00 Laboratory Results - last 24 hr 02/17/22 05:46: WBC 12.4 H, RBC 4.32, Hgb 14.2 D, Hct 42.7, MCV 98.8, MCH 32.8 H, MCHC 33.2, RDW 14.6, Plt Count 257, MPV 8.6, Neut % (Auto) 72.7, Lymph % (Auto) 17.2, [place] % (Auto) 8.6, Eos % (Auto) 1.0, Baso % (Auto) 0.5, Neut # (Auto) 9.0 H, Lymph # (Auto) 2.1, [place] # (Auto) 1.1 H, Eos # (Auto) 0.1, Baso # (Auto) 0.1 02/17/22 05:46: Sodium 140, Potassium 4.4, Chloride 108 H, Carbon Dioxide 28, Anion Gap 8.4, BUN 28 H, Creatinine 0.80, Estimated Creat Clear 56, Estimated GFR 71, Est GFR ( Amer) 86 D, Glucose 99 D, Calcium 9.2 I & O for Labs for Last 24 Hours: Intake & Output 02/14/22 02/15/22 02/16/22 02/17/22 23:59 23:59 23:59 23:59 Intake Total 420 / 420 720 / 720 720 / 720 360 / 360 Output Total 3050 / 3250 1800 / 1800 1050 / 1050 600 / 600 Balance -2630 / -2830 -1080 / -1080 -330 / -330 -240 / -240 Weight 135 lb 8 oz 149 lb 1 oz 147 lb 4.301 oz 148 lb 7 oz Microbiology Reports for the Last 24 Hours: Microbiology 02/11/22 22:50 Blood Blood Culture - Final NO GROWTH AFTER 5 DAYS 02/11/22 22:33 Blood Blood Culture - Final NO GROWTH AFTER 5 DAYS 02/14/22 13:35 Urine,Catheterized Urine Culture - Final NO GROWTH AFTER 48 HOURS Constitutional: Present moderate distress Head: Present normocephalic and atraumatic ENT: Present normal exam, normal oropharynx and mucous membranes moist Neck: Present normal inspection and full ROM Respiratory: Present wheezes, crackles, diminished air movement and able to speak in complete sentences Cardiac: Present S1/S2, Tachycardia and radial pulses present; Absent Reg Rate and Rhythm GI: Present soft and distention; Absent tenderness or guarding Rectal (female): Present deferred (female): Present deferred Skin: Present intact; Absent cyanosis or jaundice Neuro: Present alert, awake and oriented x 3 Extremities: Present normal inspection and edema; Absent clubbing or cyanosis Psychiatric: Present normal affect and cooperative Assessment and Plan *Assessment and plan (1) COPD exacerbation: Status: Acute Category: Medical Code(s): J44.1 - Chronic obstructive pulmonary disease with (acute) exacerbation Plan #COPD Exacerbation: #Acute hypoxic respiratory failure: 71 history of COPD on long-term oxygen therapy and heart failure reduced EF (35%, July 2021), hypertension, hypothyroidism, h/o colon cancer s/p resection presented with worsening shortness of breath for the last 7 days and increasing falls. On Home Oxygen. Labs and ABG on admission personally reviewed, significant leukocytosis 38 currently 21.3, neutrophilic predominant. ABG on admission did not show any evidence of hypercarbic respiratory failure, pH is 7.46 PCO2 30.5 and PO2 of 66. Patient was initiated on doxycycline along with methylprednisolone 40 every 12 hours nebulization therapies. CTA from admission personally reviewed, No evidenc eof Pulmonary embolism, no suspicious pulmonary nodules amendable for Biopsy noted. Questionalble 3mm nodules ,NO significant mediastinal and hilar lymphadenopathy noted. Focal atelectasis noted. Centrilobular emphysema. Only mild calcified hilar adenopathy appreciated not significant CT abdomen reported to have concerning adnexal lesions - managemnt as per primary team Patient admits significant family history of tuberculosis exposure. She admits getting treated for TB before. No concerning lesions noted on her CT chest patient denies any produ
--- NOTE | 2022-02-17 11:31 | HMH.PTEV ---
Physical Therapy Evaluation Rehab PT IP Evaluation Start: 02/12/22 01:38 Freq: .once Status: Complete Protocol: Document 02/12/22 09:30 PHORNE (Rec: 02/12/22 10:59 PHORNE [id number]) Subjective/History History History 71 yowf adm to [facility] with COPD exac and rib fxs. She reports she lives with her mother, no steps to enter the home and she is generally independent with all mobility st baseline. She uses oxygen via [place] as needed at home. Subjective Subjective Currently no c/o this am. Rehab PT IP Eval Objective Appearance Patient Behavior Appropriate Patient Orientation Person,Place,Time Difficulty following instructions none Speech Pattern Clear Ambulation Patient Able to Ambulate Yes Ambulation Observation IP General Gait Pattern Observation Wide Based Gait Ambulation Distance (feet) 25 Ambulation Assistive Device None Ambulation Ability Supervision/Stand by Balance Ability to Arise Able, uses arms to help Sitting Balance Steady, safe Standing Balance Steady, wide stance Dynamic Sitting Balance Ability Good Dynamic Standing Balance Ability Fair Transfers Bed Transfer Ability Supervision/Stand by Chair Transfer Ability Supervision/Stand by Sit to Stand Bed Transfer Ability Supervision/Stand by Sit to Stand Chair Transfer Ability Supervision/Stand by ROM All Extremities PT ROM Status WFL MMT All Extremities PT MMT WFL Rehab PT IP prob,goals,plan Problems Date of Evaluation: 02/12/22 Discharge Plan PT Discharge Plan Pt currently appears to be at baseline for all mobility and is appropriate to return home once medically stable. Recommend Home Health therapy upon D/C. G -code Required No Eval Complexity Eval Charge Codes 46518 - Moderate Complexity Rehab PT IP Evaluation Start: 02/17/22 11:09 Freq: ONCE Status: Active Protocol: Document 02/17/22 11:16 PHORNE (Rec: 02/17/22 11:30 PHORNE [id number]) Subjective/History History History 71 yowf adm to [facility] with COPD exac and rib fxs on L side. She was originally independent with all mobility after her
--- NOTE | 2022-02-17 13:29 | HMH.OTEV ---
OT Inpatient Evaluation Rehab OT IP Evaluation Start: 02/17/22 11:09 Freq: ONCE Status: Active Protocol: Document 02/17/22 13:[facility] (Rec: 02/17/22 13:29 [facility] [id number]) Rehab OT IP Assessment Subjective History Pt oriented x 4 on arrival. Pt agreeable to engage in therapy evaluation. Pt was admitted on 02/12/22 due to shortness of air and frequent falls. Prior to being in the hosptial, pt lived at home with her mother. Pt claims she was independent with all ADLs such as dressing, feeding , and bathing. Pt reports her and her mother complete all IADLs such as cleaning, cooking, and laundry. Both her mother and her still drive . Pt does have a walker and uses it on occasion. Pt also has a bsc. Pt uses o2 at all times. Subjective I am a little weak. Objective Patient Orientation Person,Place,Birthday Upper Extremity Gross ROM Mod Limitation 50% Shoulder ROM Limitations Muscle Weakness,Muscle Tone Bed Mobility bed mobility-scooting,bed mobility - supine/sit,bed mobility - rolling Assist Level Contact Guard/Hand Hold Transfer Training Sit/Stand Transfer Assist Level Contact Guard/Hand Hold Lower Body Dressing Ability Assistance X1 Performing Toilet Hygiene Ability Assistance X1 Overall Commode/Toilet Transfer Ability Assistance x1 Rehab OT IP prob,goals,plan Problems Date of Evaluation: 02/17/22 OT IP Problems Bed Mobility,Transfers,Balance ,Self care,Safety Rehab Potential Rehab Potential Good Equipment Needs Assistive Devices Rolling / Wheeled Walker Plan OT intervention Plan Bed Mobility,Transfers,Balance ,Self care,Safety,Therapeutic Exercise OT Plan Frequency BID Duration LOS Discharge Goals Bed Mobility Ability Standby Assistance Sit to Stand Chair Transfer Ability Supervision/Stand by Chair Transfer Ability Supervision/Stand by Chair Transfer Technique Sit to/from Ambulatory Chair Transfer Assistive Devices Rolling Walker Feeding Ability
[2022-02-18] VITALS (10 sets, daily range): BP systolic 98–139; BP diastolic 50–76; PULSE 68–120; RESP 17–20; TEMP 36.6–36.8; O2SAT 91–94; BMI 26.7
[2022-02-18 06:57] LABS: Basophils # 0.1 K/mm3 (0-0.2); Basophils % 0.7 % (0.1-2.0); Eosinophils # 0.1 K/mm3 (0.0-0.4); Eosinophils % 0.7 % (0.1-12.0); Hematocrit 46.7 % (37.0-47.0); Hemoglobin 15.5 g/dL (12.2-16.2); Mean Corpuscular HGB Conc 33.2 g/dL (31.8-35.4); Mean Corpuscular Hemoglobin 32.9 pg (27.0-31.2); Mean Corpuscular Volume 98.9 fl (81-99); Mean Platelet Volume 9.3 fl (7.4-10.4); Monocytes # 1.2 K/mm3 (0.1-1.0); Monocytes % 8.1 % (1.7-9.3); Neutrophils # 9.9 K/mm3 (1.8-7.8); Neutrophils % 69.5 % (37.0-80.0); Platelet Count 330 K/mm3 (142-424); Red Blood Count 4.72 M/mm3 (4.20-5.40); Red Cell Distribution Width 14.5 % (11.5-17.5); White Blood Count 14.3 K/mm3 (4.8-10.8)
[2022-02-18 07:14] LABS: Chloride 104 mmol/L (98-107); Potassium 4.8 mmoL/L (3.5-5.1); Sodium 141 mmol/L (136-145)
[2022-02-18 07:17] LABS: Anion Gap 9.8 mEq/L (5-15); Blood Urea Nitrogen 34 mg/dl (7-17); Calcium 9.8 mg/dl (8.4-10.2); Carbon Dioxide 32 mmol/L (22.0-30.0); Creatinine Clearance Estimated 55 mL/min (50-200); Estimated Glomerular Filt Rate 55 ml/min (>60); GFR (African American) 66 ML/MIN (>60); Glucose 79 mg/dl (74-100); Magnesium 2.4 mg/dl (1.6-2.3)
--- NOTE | 2022-02-18 10:19 | EXP.PULM.PN ---
Subjective *Date: 02/18/22 *Time: 11:58 Interval history: No acute respiratory events overnight. Patient admits continued improvement in her respiratory symptoms. Pulmonology Exam Inpatient Vital signs and Labs for Last 24 Hours: Temp Pulse Resp BP Pulse Ox FiO2 98.1 F 68 20 126/76 91 L 50 02/18/22 08:00 02/18/22 08:00 02/18/22 08:00 02/18/22 08:00 02/18/22 08:00 02/18/22 05:40 Laboratory Results - last 24 hr 02/18/22 06:06: WBC 14.3 H, RBC 4.72, Hgb 15.5, Hct 46.7, MCV 98.9, MCH 32.9 H, MCHC 33.2, RDW 14.5, Plt Count 330 D, MPV 9.3, Neut % (Auto) 69.5, Lymph % (Auto) 21.0, [place] % (Auto) 8.1, Eos % (Auto) 0.7, Baso % (Auto) 0.7, Neut # (Auto) 9.9 H, Lymph # (Auto) 3.0, [place] # (Auto) 1.2 H, Eos # (Auto) 0.1, Baso # (Auto) 0.1 02/18/22 06:06: Sodium 141, Potassium 4.8, Chloride 104, Carbon Dioxide 32 H, Anion Gap 9.8, BUN 34 H, Creatinine 1.00 D, Estimated Creat Clear 55, Estimated GFR 55 L, Est GFR ( Amer) 66 D, Glucose 79, Calcium 9.8, Magnesium 2.4 H I & O for Labs for Last 24 Hours: Intake & Output 02/15/22 02/16/22 02/17/22 02/18/22 23:59 23:59 23:59 23:59 Intake Total 720 / 720 720 / 720 1200 / 1200 240 / 240 Output Total 1800 / 1800 1050 / 1050 1550 / 1550 300 / 300 Balance -1080 / -1080 -330 / -330 -350 / -350 -60 / -60 Weight 149 lb 1 oz 147 lb 4.301 oz 148 lb 7 oz 145 lb 8 oz Microbiology Reports for the Last 24 Hours: Microbiology 02/11/22 22:50 Blood Blood Culture - Final NO GROWTH AFTER 5 DAYS 02/11/22 22:33 Blood Blood Culture - Final NO GROWTH AFTER 5 DAYS 02/14/22 13:35 Urine,Catheterized Urine Culture - Final NO GROWTH AFTER 48 HOURS Constitutional: Present moderate distress Head: Present normocephalic and atraumatic ENT: Present normal exam, normal oropharynx and mucous membranes moist Neck: Present normal inspection and full ROM Respiratory: Present respiratory distress, crackles and able to speak in complete sentences; Absent wheezes or diminished air movement Cardiac: Present S1/S2, Tachycardia and radial pulses present; Absent Reg Rate and Rhythm GI: Present soft and distention; Absent tenderness or guarding Rectal (female): Present deferred (female): Present deferred Skin: Present intact; Absent cyanosis or jaundice Neuro: Present alert, awake and oriented x 3 Extremities: Present normal inspection and edema; Absent clubbing or cyanosis Psychiatric: Present normal affect and cooperative Assessment and Plan *Assessment and plan (1) COPD exacerbation: Status: Acute Category: Medical Code(s): J44.1 - Chronic obstructive pulmonary disease with (acute) exacerbation Plan #COPD Exacerbation: #Acute hypoxic respiratory failure: 71 history of COPD on long-term oxygen therapy and heart failure reduced EF (35%, July 2021), hypertension, hypothyroidism, h/o colon cancer s/p resection presented with worsening shortness of breath for the last 7 days and increasing falls. On Home Oxygen. Labs and ABG on admission personally reviewed, significant leukocytosis 38 currently 21.3, neutrophilic predominant. ABG on admission did not show any evidence of hypercarbic respiratory failure, pH is 7.46 PCO2 30.5 and PO2 of 66. Patient was initiated on doxycycline along with methylprednisolone 40 every 12 hours nebulization therapies. CTA from admission personally reviewed, No evidenc eof Pulmonary embolism, no suspicious pulmonary nodules amendable for Biopsy noted. Questionalble 3mm nodules ,NO significant mediastinal and hilar lymphadenopathy noted. Focal atelectasis noted. Centrilobular emphysema. Only mild calcified hilar adenopathy appreciated not significant CT abdomen reported to have concerning adnexal lesions - managemnt as per primary team Patient admits significant family history of tuberculosis exposure. She admits getting treated for TB before. No concerning lesions noted o
--- NOTE | 2022-02-18 17:43 | EXP.PN ---
Subjective *Date: 02/18/22 *Time: 17:43 Interval history: No acute events overnight, patient reports she is feeling a little better today, although still very weak and somewhat short of breath. Exam Data for Last 24 hours Vital signs and Labs for Last 24 Hours: Temp Pulse Resp BP Pulse Ox FiO2 97.8 F 77 18 100/50 L 92 L 50 02/18/22 12:00 02/18/22 12:00 02/18/22 12:00 02/18/22 12:00 02/18/22 12:00 02/18/22 05:40 Laboratory Results - last 24 hr 02/18/22 06:06: WBC 14.3 H, RBC 4.72, Hgb 15.5, Hct 46.7, MCV 98.9, MCH 32.9 H, MCHC 33.2, RDW 14.5, Plt Count 330 D, MPV 9.3, Neut % (Auto) 69.5, Lymph % (Auto) 21.0, [place] % (Auto) 8.1, Eos % (Auto) 0.7, Baso % (Auto) 0.7, Neut # (Auto) 9.9 H, Lymph # (Auto) 3.0, [place] # (Auto) 1.2 H, Eos # (Auto) 0.1, Baso # (Auto) 0.1 02/18/22 06:06: Sodium 141, Potassium 4.8, Chloride 104, Carbon Dioxide 32 H, Anion Gap 9.8, BUN 34 H, Creatinine 1.00 D, Estimated Creat Clear 55, Estimated GFR 55 L, Est GFR ( Amer) 66 D, Glucose 79, Calcium 9.8, Magnesium 2.4 H I & O for Last 24 hours: Intake & Output 02/15/22 02/16/22 02/17/22 02/18/22 23:59 23:59 23:59 23:59 Intake Total 720 / 720 720 / 720 1200 / 1200 240 / 240 Output Total 1800 / 1800 1050 / 1050 1550 / 1550 800 / 800 Balance -1080 / -1080 -330 / -330 -350 / -350 -560 / -560 Weight 67.614 kg 66.8 kg 67.33 kg 65.998 kg Microbiology Reports for the Last 24 Hours: Microbiology 02/12/22 00:33 Sputum - Expectorated Sputum Gram Stain - Final 02/12/22 00:33 Sputum - Expectorated Sputum Sputum Culture - Final Staphylococcus intermedius Constitutional Constitutional: no acute distress, chronically ill appearing and cooperative *Routine HEENT Exam Head: Present normocephalic and atraumatic Eye: Present EOMI and PERRL ENT: Present mucous membranes moist *Routine Neck Exam Neck: Present supple and full ROM *Routine Respiratory Exam Respiratory: Present decreased breath sounds, rhonchi, crackles and diminished air movement; Absent wheezes *Routine Cardiovascular Exam Cardiovascular: Present RRR, murmur and tachycardia *Routine Abdominal Exam Abdominal: Present soft and normoactive bowel sounds; Absent tenderness *Routine Extremities Exam Extremities: Present full ROM and normal capillary refill; Absent cyanosis, clubbing or edema *Routine Neurological Exam Neurological: Present alert, oriented X3, CN II-XII intact, moving all extremities and normal tone; Absent motor deficit Routine Psychiatric Exam Psychiatric: Present normal affect, normal thought process and cooperative Assessment and Plan *Assessment and plan (1) Respiratory failure with hypoxia: Status: Acute Category: Medical Code(s): J96.91 - Respiratory failure, unspecified with hypoxia (2) COPD exacerbation: Status: Acute Category: Medical Code(s): J44.1 - Chronic obstructive pulmonary disease with (acute) exacerbation (3) Systolic congestive heart failure with reduced left ventricular function, NYHA class 3: Status: Chronic Category: Medical Code(s): I50.20 - Unspecified systolic (congestive) heart failure (4) Falls: Status: Acute Category: Medical Code(s): W19.XXXA - Unspecified fall, initial encounter (5) Ribs, multiple fractures: Status: Acute Category: Medical Code(s): S22.49XA - Multiple fractures of ribs, unspecified side, initial encounter for closed fracture (6) Hypertension: Status: Acute Category: Medical Code(s): I10 - Essential (primary) hypertension (7) Hypothyroidism: Status: Acute Category: Medical Code(s): E03.9 - Hypothyroidism, unspecified (8) Tobacco abuse: Status: Acute Category: Medical Code(s): Z72.0 - Tobacco use Plan 71-year-old female with COPD, home oxygen dependent presents due to increasing shortness of air and multiple falls over t
[2022-02-19] VITALS (14 sets, daily range): BP systolic 90–129; BP diastolic 56–75; PULSE 74–108; RESP 17–18; TEMP 36.4–36.9; O2SAT 90–96; BMI 26.9
--- NOTE | 2022-02-19 05:01 | PC.NURSE ---
PATIENT HAS RESTED WELL. RECIEVES SCHEDULED NORCO 7.5MG. HAS FRACTURED RIB . SINUS RHYTHM ON TELE. 02 AT 4LNC, 02 SAT 92 %.
[2022-02-19 08:21] LABS: Basophils # 0.1 K/mm3 (0-0.2); Eosinophils # 0.4 K/mm3 (0.0-0.4); Eosinophils % 2.9 % (0.1-12.0); Hemoglobin 16.3 g/dL (12.2-16.2); Lymphocytes # 2.4 K/mm3 (0.7-4.5); Lymphocytes % 17.9 % (10-50); Mean Corpuscular HGB Conc 31.3 g/dL (31.8-35.4); Mean Corpuscular Hemoglobin 33.3 pg (27.0-31.2); Mean Corpuscular Volume 106.5 fl (81-99); Mean Platelet Volume 8.9 fl (7.4-10.4); Monocytes % 7.4 % (1.7-9.3); Neutrophils # 9.5 K/mm3 (1.8-7.8); Neutrophils % 70.8 % (37.0-80.0); Platelet Count 327 K/mm3 (142-424); Red Blood Count 4.89 M/mm3 (4.20-5.40); Red Cell Distribution Width 14.4 % (11.5-17.5); White Blood Count 13.5 K/mm3 (4.8-10.8)
[2022-02-19 08:37] LABS: Chloride 102 mmol/L (98-107); Sodium 137 mmol/L (136-145)
[2022-02-19 08:38] LABS: Potassium 5.1 mmoL/L (3.5-5.1)
[2022-02-19 08:40] LABS: Alanine Aminotransferase 56 U/L (12-78); Alkaline Phosphatase 93 U/L (38-126); Aspartate Amino Transferase 63 U/L (14-36); Bilirubin,Total 0.8 mg/dl (0.2-1.3); Blood Urea Nitrogen 33 mg/dl (7-17); Creatinine Clearance Estimated 55 mL/min (50-200); Estimated Glomerular Filt Rate 55 ml/min (>60); GFR (African American) 66 ML/MIN (>60)
[2022-02-19 08:41] LABS: Albumin Level 3.7 g/dl (3.5-5.0); Albumin/Globulin Ratio 1.2 (1.1-1.8); Anion Gap 11.1 mEq/L (5-15); Calcium 9.6 mg/dl (8.4-10.2); Carbon Dioxide 29 mmol/L (22.0-30.0); Globulin 3.2 g/dL (1.3-3.2); Glucose 174 mg/dl (74-100); Total Protein,Serum 6.9 g/dl (6.3-8.2)
--- NOTE | 2022-02-19 09:44 | EXP.PULM.PN ---
Subjective *Date: 02/20/22 *Time: 10:27 Interval history: No acute respiratory vents overnight. Stable oxygen requirements. Pulmonology Exam Inpatient Vital signs and Labs for Last 24 Hours: Temp Pulse Resp BP Pulse Ox FiO2 98.0 F 102 H 17 123/75 90 L 36 02/19/22 07:48 02/19/22 07:48 02/19/22 07:48 02/19/22 07:48 02/19/22 07:48 02/18/22 18:27 Laboratory Results - last 24 hr 02/19/22 08:15: WBC 13.5 H, RBC 4.89, Hgb 16.3 H, Hct 52.0 H, MCV 106.5 H, MCH 33.3 H, MCHC 31.3 L, RDW 14.4, Plt Count 327, MPV 8.9, Neut % (Auto) 70.8, Lymph % (Auto) 17.9, [place] % (Auto) 7.4, Eos % (Auto) 2.9, Baso % (Auto) 1.0, Neut # (Auto) 9.5 H, Lymph # (Auto) 2.4, [place] # (Auto) 1.0, Eos # (Auto) 0.4, Baso # (Auto) 0.1 02/19/22 08:15: Sodium 137, Potassium 5.1, Chloride 102, Carbon Dioxide 29, Anion Gap 11.1, BUN 33 H, Creatinine 1.00, Estimated Creat Clear 55, Estimated GFR 55 L, Est GFR ( Amer) 66, Glucose 174 H, Calcium 9.6, Total Bilirubin 0.8, AST 63 H D, ALT 56 D, Alkaline Phosphatase 93, Total Protein 6.9, Albumin 3.7, Globulin 3.2, Albumin/Globulin Ratio 1.2 I & O for Labs for Last 24 Hours: Intake & Output 02/16/22 02/17/22 02/18/22 02/19/22 23:59 23:59 23:59 23:59 Intake Total 720 / 720 1200 / 1200 1140 / 1140 480 / 480 Output Total 1050 / 1050 1550 / 1550 1300 / 1300 400 / 400 Balance -330 / -330 -350 / -350 -160 / -160 80 / 80 Weight 147 lb 4.301 oz 148 lb 7 oz 145 lb 8 oz 146 lb 1.6 oz Microbiology Reports for the Last 24 Hours: Microbiology 02/12/22 00:33 Sputum - Expectorated Sputum Gram Stain - Final 02/12/22 00:33 Sputum - Expectorated Sputum Sputum Culture - Final Staphylococcus intermedius Constitutional: Present moderate distress Head: Present normocephalic and atraumatic ENT: Present normal exam, normal oropharynx and mucous membranes moist Neck: Present normal inspection and full ROM Respiratory: Present respiratory distress, crackles and able to speak in complete sentences; Absent wheezes or diminished air movement Cardiac: Present S1/S2, Tachycardia and radial pulses present; Absent Reg Rate and Rhythm GI: Present soft and distention; Absent tenderness or guarding Rectal (female): Present deferred (female): Present deferred Skin: Present intact; Absent cyanosis or jaundice Neuro: Present alert, awake and oriented x 3 Extremities: Present normal inspection and edema; Absent clubbing or cyanosis Psychiatric: Present normal affect and cooperative Assessment and Plan *Assessment and plan (1) COPD exacerbation: Status: Acute Category: Medical Code(s): J44.1 - Chronic obstructive pulmonary disease with (acute) exacerbation Plan #COPD Exacerbation: #Acute hypoxic respiratory failure: 71 history of COPD on long-term oxygen therapy and heart failure reduced EF (35%, July 2021), hypertension, hypothyroidism, h/o colon cancer s/p resection presented with worsening shortness of breath for the last 7 days and increasing falls. On Home Oxygen. Labs and ABG on admission personally reviewed, significant leukocytosis 38 currently 21.3, neutrophilic predominant. ABG on admission did not show any evidence of hypercarbic respiratory failure, pH is 7.46 PCO2 30.5 and PO2 of 66. Patient was initiated on doxycycline along with methylprednisolone 40 every 12 hours nebulization therapies. CTA from admission personally reviewed, No evidenc eof Pulmonary embolism, no suspicious pulmonary nodules amendable for Biopsy noted. Questionalble 3mm nodules ,NO significant mediastinal and hilar lymphadenopathy noted. Focal atelectasis noted. Centrilobular emphysema. Only mild calcified hilar adenopathy appreciated not significant CT abdomen reported to have concerning adnexal lesions - managemnt as per primary team Patient admits significant family history of tuberculosis exposure. She admits getting treated for TB before. No concerning lesions noted on her CT chest patient den
--- NOTE | 2022-02-19 12:31 | XR_ITS ---
FINAL REPORT CLINICAL HISTORY: hypoxia COMPARISON: 02/17/2022 FINDINGS: SINGLE-VIEW CHEST There is cardiomegaly. Left subclavian ICD is present. The mediastinum is normal. There are persistent bibasilar opacities, favor atelectasis. There is no pneumothorax. IMPRESSION: Persistent opacities, favor atelectasis. Reviewed, Interpreted and Dictated by David Amador III, MD Transcribed by Karla King Authenticated and [facility]
--- NOTE | 2022-02-19 16:33 | EXP.DC.SUM ---
General Admission date:: 02/13/22 Discharge date: 02/19/22 HPI HPI HPI: Ms. Perez is a 71-year-old female with a past medical history of COPD, on chronic home oxygen, HFrEF, HTN, history of colon cancer s/p colon resection, Hypothyroidism and chronic tobacco use. She presents to [facility] due to shortness of air and falls that have been increasing over the last week. The patient was seen on admission in the ER. She reports that she has fallen five times in the last week due to weakness that has been associated with increasing shortness of air. She denies losing consciousness with the falls, but does report a continued cough that has been productive in nature. In the ER, the patient underwent a CBC that showed a WBC of 21K. Influenza and Covid testing were negative. CTA of the chest showed fractures of the left lateral 3rd, 4th and 5th ribs and left posterior 5th and 6th ribs and pulmonary nodules. CT of the abdomen and pelvis showed bilateral adnexa lesions suspicious for malignancy with minimal stranding nodules along omentum concerning for metasis. The patient will be admitted with initial impression: Acute on Chronic Hypoxic Respiratory Failure, COPD exacerbation and falls. She will be placed on nebulizers, sputum sent for gram stain and culture, placed on antibiotics, PT/OT consulted to see the patient and TVUS ordered for evaluation of abdominal CT of abdomen of pelvis. Hospital Course Hospital Course Hospital Course: Patient admitted in the instructor modeling hours of 02/12/2022 for acute hypoxic respiratory failure secondary to pneumonia and COPD exacerbation. Additionally, patient appears to have an overall decline in health for the past several weeks, marked by multiple falls at home causing multiple rib fractures. CT abdomen and pelvis in the ER showed adnexal and omental lesions concerning for malignancy. Patient was treated with supplemental oxygen, Trelegy, prednisone, doxycycline p.o., and diuresis. Supplemental oxygen requirements increased the first few days of admission including Vapotherm on 02/15-02/18. Pt weaned to 4-3L by MI on 02/18 and she remained stable on 3L today. Repeat echo during admission actually showed an improvement in her ejection fraction up from 35% to 50%. Overall patient appears to be relatively weak and deconditioned. I do not believe it is safe for her to go home, I think she will fall and be readmitted to the hospital soon thereafter if she does not complete a course of rehab. Patient is agreeable to this and she will therefore be [facility] to help build up her strength. Regarding adnexal and omental lesions seen on CT abdomen and pelvis, and outpatient work-up is recommended to determine if these lesions are in fact malignant. Exam Data for Last 24 hours Vital signs and Labs for Last 24 Hours: Temp Pulse Resp BP Pulse Ox FiO2 97.6 F 92 H 17 106/59 L 92 L 36 02/19/22 15:23 02/19/22 15:23 02/19/22 15:23 02/19/22 15:23 02/19/22 15:23 02/18/22 18:27 Laboratory Results - last 24 hr 02/19/22 08:15: WBC 13.5 H, RBC 4.89, Hgb 16.3 H, Hct 52.0 H, MCV 106.5 H, MCH 33.3 H, MCHC 31.3 L, RDW 14.4, Plt Count 327, MPV 8.9, Neut % (Auto) 70.8, Lymph % (Auto) 17.9, [place] % (Auto) 7.4, Eos % (Auto) 2.9, Baso % (Auto) 1.0, Neut # (Auto) 9.5 H, Lymph # (Auto) 2.4, [place] # (Auto) 1.0, Eos # (Auto) 0.4, Baso # (Auto) 0.1 02/19/22 08:15: Sodium 137, Potassium 5.1, Chloride 102, Carbon Dioxide 29, Anion Gap 11.1, BUN 33 H, Creatinine 1.00, Estimated Creat Clear 55, Estimated GFR 55 L, Est GFR ( Amer) 66, Glucose 174 H, Calcium 9.6, Total Bilirubin 0.8, AST 63 H D, ALT 56 D, Alkaline Phosphatase 93, Total Protein 6.9, Albumin 3.7, Globulin 3.2, Albumin/Globulin Ratio 1.2 I & O for Last 24 hours: Intake & Output 02/16/22 02/17/22 02/18/22 02/19/22 23:59 23:59 23:59 23:59 Intake Total 720 / 720 1200 / 1200 1140 / 1140 780 / 780 Output Total 1050
--- NOTE | 2022-02-19 17:13 | PC.NURSE ---
attempted to call report to signature. however, they stated they were not aware of an admission coming and asked for us to call back
--- NOTE | 2022-02-19 18:22 | PC.NURSE ---
attempted to call report to signature. new fax number obtained for discharge summary. they stated they would call back
--- NOTE | 2022-02-19 19:21 | PC.NURSE ---
while giving report to signature noted patient had not had a bm in greater than 3 days. signature refused to take patient at that time. notified sindler. who stated to order senna bid miralax bid and give a fleets enema. patient aware discharge was canceled at this time. she has done well this shift. up and down with stand by assist to bedside commode. no complaints of pain besides minimal pain to ribs. rings otu as needed. tolerating diet. encouraged to ring out as needed
--- NOTE | 2022-02-19 19:24 | EXP.PN ---
Subjective *Date: 02/19/22 *Time: 19:36 Interval history: Patient was feeling better today, still rather weak but less short of breath. She was ready to go to [facility] for [facility], however refused transfer at the last minute when they learned she had not had a bowel movement in 3 days. Exam Data for Last 24 hours Vital signs and Labs for Last 24 Hours: Temp Pulse Resp BP Pulse Ox FiO2 97.6 F 90 17 106/59 L 92 L 36 02/19/22 15:23 02/19/22 16:00 02/19/22 15:23 02/19/22 15:23 02/19/22 15:23 02/18/22 18:27 Laboratory Results - last 24 hr 02/19/22 08:15: WBC 13.5 H, RBC 4.89, Hgb 16.3 H, Hct 52.0 H, MCV 106.5 H, MCH 33.3 H, MCHC 31.3 L, RDW 14.4, Plt Count 327, MPV 8.9, Neut % (Auto) 70.8, Lymph % (Auto) 17.9, [place] % (Auto) 7.4, Eos % (Auto) 2.9, Baso % (Auto) 1.0, Neut # (Auto) 9.5 H, Lymph # (Auto) 2.4, [place] # (Auto) 1.0, Eos # (Auto) 0.4, Baso # (Auto) 0.1 02/19/22 08:15: Sodium 137, Potassium 5.1, Chloride 102, Carbon Dioxide 29, Anion Gap 11.1, BUN 33 H, Creatinine 1.00, Estimated Creat Clear 55, Estimated GFR 55 L, Est GFR ( Amer) 66, Glucose 174 H, Calcium 9.6, Total Bilirubin 0.8, AST 63 H D, ALT 56 D, Alkaline Phosphatase 93, Total Protein 6.9, Albumin 3.7, Globulin 3.2, Albumin/Globulin Ratio 1.2 Temp Pulse Resp BP Pulse Ox FiO2 97.6 F 92 H 17 106/59 L 92 L 36 02/19/22 15:23 02/19/22 15:23 02/19/22 15:23 02/19/22 15:23 02/19/22 15:23 02/18/22 18:27 Laboratory Results - last 24 hr 02/19/22 08:15: WBC 13.5 H, RBC 4.89, Hgb 16.3 H, Hct 52.0 H, MCV 106.5 H, MCH 33.3 H, MCHC 31.3 L, RDW 14.4, Plt Count 327, MPV 8.9, Neut % (Auto) 70.8, Lymph % (Auto) 17.9, [place] % (Auto) 7.4, Eos % (Auto) 2.9, Baso % (Auto) 1.0, Neut # (Auto) 9.5 H, Lymph # (Auto) 2.4, [place] # (Auto) 1.0, Eos # (Auto) 0.4, Baso # (Auto) 0.1 02/19/22 08:15: Sodium 137, Potassium 5.1, Chloride 102, Carbon Dioxide 29, Anion Gap 11.1, BUN 33 H, Creatinine 1.00, Estimated Creat Clear 55, Estimated GFR 55 L, Est GFR ( Amer) 66, Glucose 174 H, Calcium 9.6, Total Bilirubin 0.8, AST 63 H D, ALT 56 D, Alkaline Phosphatase 93, Total Protein 6.9, Albumin 3.7, Globulin 3.2, Albumin/Globulin Ratio 1.2 I & O for Last 24 hours: Intake & Output 02/16/22 02/17/22 02/18/22 02/19/22 23:59 23:59 23:59 23:59 Intake Total 720 / 720 1200 / 1200 1140 / 1140 900 / 900 Output Total 1050 / 1050 1550 / 1550 1300 / 1300 700 / 700 Balance -330 / -330 -350 / -350 -160 / -160 200 / 200 Weight 66.8 kg 67.33 kg 65.998 kg 66.27 kg Intake & Output 02/16/22 02/17/22 02/18/22 02/19/22 23:59 23:59 23:59 23:59 Intake Total 720 / 720 1200 / 1200 1140 / 1140 780 / 780 Output Total 1050 / 1050 1550 / 1550 1300 / 1300 700 / 700 Balance -330 / -330 -350 / -350 -160 / -160 80 / 80 Weight 66.8 kg 67.33 kg 65.998 kg 66.27 kg Constitutional Constitutional: no acute distress, chronically ill appearing and cooperative *Routine HEENT Exam Head: Present normocephalic and atraumatic Eye: Present EOMI and PERRL ENT: Present mucous membranes moist *Routine Neck Exam Neck: Present supple and full ROM *Routine Respiratory Exam Respiratory: Present decreased breath sounds, rhonchi, crackles and diminished air movement; Absent wheezes *Routine Cardiovascular Exam Cardiovascular: Present RRR, murmur and tachycardia *Routine Abdominal Exam Abdominal: Present soft and normoactive bowel sounds; Absent tenderness *Routine Extremities Exam Extremities: Present full ROM and normal capillary refill; Absent cyanosis, clubbing or edema *Routine Neurological Exam Neurological: Present alert, oriented X3, CN II-XII intact, moving all extremities and normal tone; Absent motor deficit Routine Psychiatric Exam Psychiatric: Present normal affect, normal thought process and cooperative Assessment and Plan *Assessment and plan (1) Respiratory failure with hypoxia: Status: Acute Category: Medical Code(s): J96.91 - Respiratory failure, unspecified w
[2022-02-20] VITALS: BP 96/66; PULSE 83; RESP 18; TEMP 36.9; O2SAT 91
--- NOTE | 2022-02-20 01:22 | PC.NURSE ---
Patient has had fleets enema, dulcolax 10mg po, miralax 17gm po, se at [facility] 8.6 mg 2 tabs. has passed 1 small hard bm. refusing norco 7.5 mg at this time
--- NOTE | 2022-02-20 03:38 | PC.NURSE ---
PATIENT HAS PASSED 1 SMALL HARD STOOL AFTER DULCOLAX,FLEETS ENEMA, MIRALAX, AND SENNA .
[2022-02-20 04:00] VITALS: BP 103/69; PULSE 92; RESP 18; TEMP 36.7; O2SAT 91
[2022-02-20 05:00] VITALS: BMI 26.3
[2022-02-20 06:27] VITALS: O2SAT 87
[2022-02-20 06:34] LABS: Basophils # 0.1 K/mm3 (0-0.2); Basophils % 0.8 % (0.1-2.0); Eosinophils # 0.5 K/mm3 (0.0-0.4); Eosinophils % 3.4 % (0.1-12.0); Hematocrit 50.6 % (37.0-47.0); Lymphocytes # 2.5 K/mm3 (0.7-4.5); Lymphocytes % 18.1 % (10-50); Mean Corpuscular HGB Conc 31.7 g/dL (31.8-35.4); Mean Corpuscular Hemoglobin 33.3 pg (27.0-31.2); Mean Corpuscular Volume 105.1 fl (81-99); Mean Platelet Volume 8.5 fl (7.4-10.4); Monocytes % 7.6 % (1.7-9.3); Neutrophils # 9.5 K/mm3 (1.8-7.8); Neutrophils % 70.1 % (37.0-80.0); Platelet Count 302 K/mm3 (142-424); Red Blood Count 4.81 M/mm3 (4.20-5.40); Red Cell Distribution Width 14.5 % (11.5-17.5); White Blood Count 13.5 K/mm3 (4.8-10.8)
[2022-02-20 07:11] LABS: Chloride 101 mmol/L (98-107); Potassium 4.6 mmoL/L (3.5-5.1); Sodium 135 mmol/L (136-145)
[2022-02-20 07:14] LABS: Alanine Aminotransferase 41 U/L (12-78); Albumin Level 3.3 g/dl (3.5-5.0); Albumin/Globulin Ratio 1.1 (1.1-1.8); Alkaline Phosphatase 110 U/L (38-126); Anion Gap 8.6 mEq/L (5-15); Aspartate Amino Transferase 37 U/L (14-36); Bilirubin,Total 0.4 mg/dl (0.2-1.3); Blood Urea Nitrogen 26 mg/dl (7-17); Calcium 9.2 mg/dl (8.4-10.2); Carbon Dioxide 30 mmol/L (22.0-30.0); Creatinine Clearance Estimated 54 mL/min (50-200); Estimated Glomerular Filt Rate 71 ml/min (>60); GFR (African American) 86 ML/MIN (>60); Glucose 99 mg/dl (74-100); Total Protein,Serum 6.3 g/dl (6.3-8.2)
[2022-02-20 07:59] VITALS: BP 131/74; PULSE 103; RESP 18; TEMP 36.4; O2SAT 90
--- NOTE | 2022-02-20 09:21 | ECG_ITS ---
APPROVED REPORT Exam: Resting ECG HR:99 bpm ECG Measurements Heart Rate [address] 143 P 30 QRSd 98 QRS 8 QT 360 T 44 QTc 416 Conclusion SINUS RHYTHM NONSPECIFIC ST & T-WAVE ABNORMALITY BORDERLINE ECG UNCONFIRMED REPORT Electronically signed by : Justin Damian MD 02/20/2022 20:18:18
[2022-02-20 09:35] LABS: Troponin I < 0.01 ng/ml (0.00-0.034)
[2022-02-20 11:30] VITALS: BP 90/55; PULSE 84; RESP 17; TEMP 36.7; O2SAT 95
[2022-02-20 11:55] LABS: Troponin I < 0.01 ng/ml (0.00-0.034)
--- NOTE | 2022-02-20 13:40 | EXP.PULM.PN ---
Subjective *Date: 02/20/22 *Time: 13:40 Interval history: No acute respiratory events overnight. Patient denies any new complaints. Pulmonology Exam Inpatient Vital signs and Labs for Last 24 Hours: Temp Pulse Resp BP Pulse Ox FiO2 98.0 F 84 17 90/55 L 95 36 02/20/22 11:30 02/20/22 11:30 02/20/22 11:30 02/20/22 11:30 02/20/22 11:30 02/18/22 18:27 Laboratory Results - last 24 hr 02/20/22 06:23: WBC 13.5 H, RBC 4.81, Hgb 16.0, Hct 50.6 H, MCV 105.1 H, MCH 33.3 H, MCHC 31.7 L, RDW 14.5, Plt Count 302, MPV 8.5, Neut % (Auto) 70.1, Lymph % (Auto) 18.1, Emanuel % (Auto) 7.6, Eos % (Auto) 3.4, Baso % (Auto) 0.8, Neut # (Auto) 9.5 H, Lymph # (Auto) 2.5, Emanuel # (Auto) 1.0, Eos # (Auto) 0.5 H, Baso # (Auto) 0.1 02/20/22 06:23: Sodium 135 L, Potassium 4.6, Chloride 101, Carbon Dioxide 30, Anion Gap 8.6, BUN 26 H, Creatinine 0.80, Estimated Creat Clear 54, Estimated GFR 71, Est GFR ( Amer) 86 D, Glucose 99 D, Calcium 9.2, Total Bilirubin 0.4, AST 37 H D, ALT 41 D, Alkaline Phosphatase 110, Total Protein 6.3, Albumin 3.3 L D, Globulin 3.0, Albumin/Globulin Ratio 1.1 02/20/22 06:23: Troponin I < 0.01 02/20/22 11:15: Troponin I < 0.01 I & O for Labs for Last 24 Hours: Intake & Output 02/17/22 02/18/22 02/19/22 02/20/22 23:59 23:59 23:59 23:59 Intake Total 1200 / 1200 1140 / 1140 900 / 900 360 / 360 Output Total 1550 / 1550 1300 / 1300 925 / 925 600 / 600 Balance -350 / -350 -160 / -160 -25 / -25 -240 / -240 Weight 148 lb 7 oz 145 lb 8 oz 146 lb 1.6 oz 143 lb 3 oz Microbiology Reports for the Last 24 Hours: Microbiology 02/12/22 00:33 Sputum - Expectorated Sputum Gram Stain - Final 02/12/22 00:33 Sputum - Expectorated Sputum Sputum Culture - Final Staphylococcus intermedius Constitutional: Present moderate distress Head: Present normocephalic and atraumatic ENT: Present normal exam, normal oropharynx and mucous membranes moist Neck: Present normal inspection and full ROM Respiratory: Present respiratory distress, crackles and able to speak in complete sentences; Absent wheezes or diminished air movement Cardiac: Present S1/S2, Tachycardia and radial pulses present; Absent Reg Rate and Rhythm GI: Present soft and distention; Absent tenderness or guarding Rectal (female): Present deferred (female): Present deferred Skin: Present intact; Absent cyanosis or jaundice Neuro: Present alert, awake and oriented x 3 Extremities: Present normal inspection and edema; Absent clubbing or cyanosis Psychiatric: Present normal affect and cooperative Assessment and Plan *Assessment and plan (1) COPD exacerbation: Status: Acute Category: Medical Code(s): J44.1 - Chronic obstructive pulmonary disease with (acute) exacerbation Plan #COPD Exacerbation: #Acute hypoxic respiratory failure: 71 history of COPD on long-term oxygen therapy and heart failure reduced EF (35%, July 2021), hypertension, hypothyroidism, h/o colon cancer s/p resection presented with worsening shortness of breath for the last 7 days and increasing falls. On Home Oxygen. Labs and ABG on admission personally reviewed, significant leukocytosis 38 currently 21.3, neutrophilic predominant. ABG on admission did not show any evidence of hypercarbic respiratory failure, pH is 7.46 PCO2 30.5 and PO2 of 66. Patient was initiated on doxycycline along with methylprednisolone 40 every 12 hours nebulization therapies. CTA from admission personally reviewed, No evidenc eof Pulmonary embolism, no suspicious pulmonary nodules amendable for Biopsy noted. Questionalble 3mm nodules ,NO significant mediastinal and hilar lymphadenopathy noted. Focal atelectasis noted. Centrilobular emphysema. Only mild calcified hilar adenopathy appreciated not significant CT abdomen reported to have concerning adnexal lesions - managemnt as per primary team Patient admits significant family history of tuberculosis exposure. She admits getting tr
--- NOTE | 2022-02-20 13:57 | PC.NURSE ---
removed midline, and report called to signature
== END 2022-02-20 14:18 | DRG 190 ==
LOC: ER 02-12 01:21 → 2ND 02-13 02:42
PROVIDERS: Nurse Practitioner Family; Admitting Provider Internal Medicine Adolescent Medicine; Emergency Provider Emergency Medicine; PCP Nurse Practitioner Family; Visit Provider Emergency Medicine
DX: J44.1 Chronic obstructive pulmonary disease with (acute) exacerbation (principal); J96.21 Acute and chronic respiratory failure with hypoxia; S22.42XA Multiple fractures of ribs, left side, initial encounter for closed fracture; I50.20 Unspecified systolic (congestive) heart failure; I42.9 Cardiomyopathy, unspecified; N17.9 Acute kidney failure, unspecified; I47.20 Ventricular tachycardia, unspecified; Z99.81 Dependence on supplemental oxygen; E03.9 Hypothyroidism, unspecified; Z85.038 Personal history of other malignant neoplasm of large intestine; I11.0 Hypertensive heart disease with heart failure; Z86.73 Personal history of transient ischemic attack (TIA), and cerebral infarction without residual deficits; E78.5 Hyperlipidemia, unspecified; I34.0 Nonrheumatic mitral (valve) insufficiency; I25.10 Atherosclerotic heart disease of native coronary artery without angina pectoris; F17.210 Nicotine dependence, cigarettes, uncomplicated; W19.XXXA Unspecified fall, initial encounter; E86.0 Dehydration; F41.9 Anxiety disorder, unspecified; Z79.84 Long term (current) use of oral hypoglycemic drugs
CPT/HCPCS: 36410; 36415; 36569; 70450; 71045; 71275; 74176; 80048; 80053; 80076; 81001; 82803; 82962; 83605; 83735; 84484; 85007; 85025; 86480; 87040; 87070; 87077; 87086; 87186; 87205; 93005; 93306; 94640; 94761; 97110; 97116; 97162; 97166; 97530; 99285; C1751; C9803; G0378; Q9967; U0003; U0005

== ENCOUNTER → 2022-05-06 16:18 | Outpatient (CLI) | payer MEDICARE, MEDICAID, SELFPAY ==
--- NOTE | 2022-05-06 16:27 | XR_ITS ---
FINAL REPORT CLINICAL HISTORY: PREOPERATIVE GENERAL PHYSICAL EXAMINATION: hx of hypertension, heart failure. current smoker COMPARISON: 02/19/2022 FINDINGS: 2 views of the chest were obtained . The heart is normal in size. There is a left subclavian ICD. The mediastinum is within normal limits. Mild bibasilar atelectasis or scarring is seen. The lungs are otherwise clear. There is no pneumothorax. Osseous structures are unremarkable. IMPRESSION: Mild bibasilar atelectasis or scarring. Reviewed, Interpreted and Dictated by David Amador III, MD Transcribed by Halie Reeder Authenticated and [facility]
[2022-05-06 17:39] LABS: Basophils # 0.1 K/mm3 (0-0.2); Eosinophils # 0.5 K/mm3 (0.0-0.4); Eosinophils % 3.4 % (0.1-12.0); Hematocrit 51.7 % (37.0-47.0); Hemoglobin 16.7 g/dL (12.2-16.2); Lymphocytes # 3.1 K/mm3 (0.7-4.5); Lymphocytes % 22.4 % (10-50); Mean Corpuscular HGB Conc 32.4 g/dL (31.8-35.4); Mean Corpuscular Hemoglobin 32.7 pg (27.0-31.2); Mean Platelet Volume 8.2 fl (7.4-10.4); Monocytes # 0.8 K/mm3 (0.1-1.0); Monocytes % 5.9 % (1.7-9.3); Neutrophils # 9.1 K/mm3 (1.8-7.8); Neutrophils % 67.2 % (37.0-80.0); Platelet Count 279 K/mm3 (142-424); Red Blood Count 5.12 M/mm3 (4.20-5.40); Red Cell Distribution Width 14.1 % (11.5-17.5); White Blood Count 13.6 K/mm3 (4.8-10.8)
[2022-05-06 17:49] LABS: Activated Partial Thrombo Time 24.8 seconds (22.8-30.6); Prothrombin Time 9.8 seconds (10.1-12.5)
[2022-05-06 18:17] LABS: Alanine Aminotransferase 25 U/L (12-78); Albumin Level 3.9 g/dl (3.5-5.0); Albumin/Globulin Ratio 1.4 (1.1-1.8); Alkaline Phosphatase 119 U/L (38-126); Anion Gap 10.4 mEq/L (5-15); Aspartate Amino Transferase 26 U/L (14-36); Bilirubin,Total 0.4 mg/dl (0.2-1.3); Blood Urea Nitrogen 15 mg/dl (7-17); Calcium 9.1 mg/dl (8.4-10.2); Carbon Dioxide 29 mmol/L (22.0-30.0); Chloride 103 mmol/L (98-107); Estimated Glomerular Filt Rate 49 ml/min (>60); GFR (African American) 59 ML/MIN (>60); Globulin 2.7 g/dL (1.3-3.2); Glucose 88 mg/dl (74-100); Potassium 4.4 mmoL/L (3.5-5.1); Sodium 138 mmol/L (136-145); Total Protein,Serum 6.6 g/dl (6.3-8.2)
== END ==
PROVIDERS: PCP Nurse Practitioner Family; Visit Provider Nurse Practitioner Family
DX: Z01.818 Encounter for other preprocedural examination (principal); Z51.81 Encounter for therapeutic drug level monitoring
CPT/HCPCS: 36415; 71046; 80053; 85025; 85610; 85730